=== PATIENT | male | born 1935 | race Caucasian/White ===

== ENCOUNTER 2017-10-12 09:59 | Inpatient (IN) | payer OTHER, MEDICARE ==
[~2017-10-12] VITALS: Ht 165.1 cm; Wt 78.5 kg
[~2017-10-12 09:59] MED LIST: ALIGN4 M1 PO; AMOXICILLIN500 M2 PO; BACTRIM DS TAB1 EACH PO; CIPRO500 M1 PO; FINASTERIDE5 M1 PO; FLAGYL500 MG PO; FLOMAX0.4 M1 PO; FOLIC ACID1 M1 PO; LIPO-FLAVONOID1 EACH PO; LISINOPRIL5 M1 PO; MECLIZINE HCL25 MG PO; METHSCOPOLAMIN2.5 M1 PO; OMEPRAZOLE20 M3 PO; OMEPRAZOLE40 M1 PO; PRAVASTATIN SOD80 M2 PO; PREDNISONE10 M2 PO; TAMSULOSIN HCL0.4 M1 PO; TYLENOL EXTRA500 M2 PO; WARFARIN SODIUM5 M1 PO
[2017-10-12] MEDS ORDERED: SULFAMETHOXAZO1 EAC1 PO (11:09)
--- NOTE | 2017-10-12 11:34 | ED GENERAL ADULT ---
History of Present Illness General Chief Complaint: Skin Rash/ Abcess Stated Complaint: SKIN INFECTION ? ABCESS Source: patient, family Exam Limitations: no limitations Vital Signs & Intake/Output Vital Signs & Intake/Output Vital Signs Date Time Temp Pulse Resp B/P B/P Pulse O2 O2 Flow FiO2 Mean Ox Delivery Rate 10/12 1501 97.7 76 16 138/70 98 Room Air 10/12 1005 96.9 74 20 148/78 97 Room Air Allergies Coded Allergies: Penicillins (UNKNOWN PER PT A KID 11/10/15) vancomycin (RASH 11/10/15) guaifenesin (From ROBITUSSIN) (Mild, "AFFECT MY PROSTATE" 11/10/15) Reconcile Medications Acetaminophen (Tylenol Extra Strength) 500 MG TABLET 1 TAB PO PRN PAIN ( Reported) Bifidobacterium Infantis (Align) 4 MG (1 BILLION CELL) CAPSULE 1 CAP PO DAILY PRN GI (Reported) Bioflav,Lemon/Vit Bcomp,C (Lipo-Flavonoid Plus Caplet) 200 MG-100 MG TABLET 1 TAB PO DAILY SUPPLEMENT (Reported) Finasteride 5 MG TABLET 1 TAB PO DAILY PROSTATE (Reported) Folic Acid 1 MG TABLET 1 TAB PO DAILY SUPPLEMENT (Reported) Meclizine HCl 25 MG TABLET 1 TAB PO AD PRN VERTIGO (Reported) Omeprazole 40 MG CAPSULE.DR 1 CAP PO DAILY GI (Reported) Pravastatin Sodium 80 MG TABLET 1 TAB PO DAILY CHOLESTEROL (Reported) Prednisone 10 MG TABLET 1 TAB PO DAILY STEROID (Reported) Sulfamethoxazole/Trimethoprim (Sulfamethoxazole-Tmp Ds Tablet) 800 MG-160 MG TABLET 1 TAB PO BID ANTIBIOTIC, INFECTION (Reported) Tamsulosin HCl (Flomax) 0.4 MG CAP.ER.24H 1 CAP PO BID PROSTATE (Reported) Warfarin Sodium 5 MG TABLET 1 TAB PO DAILY BLOOD THINNER (Reported) Triage Note: PT STATES THAT HE HAS HAD CELLULITIS/ABCESS TO L SIDE ABD FOR THE PAST 4 DAYS , SAW PMD AND HAS BEEN ON ABT SINCE THURSDAY, AREA IS GETTING LARGER MORE PAINFUL. PT NOTED WITH REDNESS AND WARMTH AT THIS TIME Triage Nurses Notes Reviewed? yes HPI: Patient is a 81-year-old male with past medical history of left inguinal hernia status post repair as well as left lower abdominal MRSA cellulitis in November 2015 which was treated with IV antibiotics, who presents today with erythema in that location. His primary physician placed him on Bactrim one week ago but the symptoms have worsened despite this. Upon my initial encounter today the patient is generally nontoxic and afebrile. He denies other concerns at this time. Past History Travel History Traveled to [place] past 21 day No Medical History Any Pertinent Medical History? 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 , Age 70; Cause: Myocardial infarction. FATHER, , Age 94; Cause: OBS (organic brain syndrome). Hx Contributory? No Review of Systems Review of Systems Constitutional: Reports: see HPI. Denies: chills, diaphoresis, fever, malaise, weakness. EENTM: Reports: no symptoms. Respiratory: Reports: no symptoms. Cardiovascular: Reports: no symptoms. GI: Reports: no symptoms. Genitourinary: Reports: no symptoms. Musculoskeletal: Reports: no symptoms. Skin: Reports: erythema, lesions, rash. Neurological/Psychological: Reports: no symptoms. Hematologic/Endocrine: Reports: no symptoms. Immunologic/Allergic: Reports: no symptoms. All Other Systems: Reviewed and Negative Physical Exam Physical Exam General Appearance: well developed/nourished, no apparent distress, alert, awake Comments: HEENT: Inspection of the head reveals a normocephalic cranium with no signs of trauma. Ophtho: Extraocular muscles are intact. The sclera are noninjected, and there is no obvious discharge. Neck: No signs of trauma or asymmetry to the neck. Respiratory: The patient exhibits no signs of labored breathing. Cardiac: Non-tachycardic. GI: No gross abdominal distention. : Deferred Neuro: The patient is oriented to person, place, time, and situation, with no obvious focal motor deficits. Cranial nerves II through XII are intact, and gait is normal. Behavioral: Calm and cooperative Dermatologic: Focused examination of the skin of the abdomen reveals erythema and induration in the left lower quadrant, not over aspect triangle or any inguinal canal. The area of induration is approximately 20 cm x 4 cm, and is mobile in the soft tissue, seemingly not adhered to the abdominal wall whatsoever. There is no head and no purulent drainage at present. Core Measures ACS in differential dx? No CVA/TIA Diagnosis: No Sepsis Present: No Sepsis Focused Exam Completed? No Progress Differential Diagnoses I considered the following diagnoses in my evaluation of the patient: Plan of Care: Orders Procedure Date/time Status Heart Healthy Diet 10/12 D Active LACTIC ACID 10/12 1515 Active Patient Data 10/12 1345 Active BLOOD CULTURE 10/12 1341 Active PROTHROMBIN TIME 10/12 1341 Complete ED Holding Orders 10/12 1334 Active Admit to inpatient 10/12 1334 Active Code Status 10/12 1334 Active Add-on Test (ER Only) 10/12 1330 Active LACTIC ACID 10/12 1215 Complete Intake & Output 10/12 1206 Active BLOOD CULTURE 10/12 1102 Active COMPREHENSIVE METABOLIC PANEL 10/12 1102 Complete CBC WITHOUT DIFFERENTIAL 10/12 1102 Complete Laboratory Tests 10/12/17 1401: PT 53.9 *H, INR 4.87 *H 10/12/17 1226: Lactic Acid 0.6 L, CBC w Diff MAN DIFF ORDERED, RBC 3.86 L, MCV 77.7 L, MCH 25.1 L, MCHC 32.3 L, RDW 19.6 H, MPV 8.9, Gran % 43.7, Lymphocytes % 52.3 H, Monocytes % 3.3, Eosinophils % 0.3, Basophils % 0.4, Absolute Granulocytes 9.7 H, Absolute Lymphocytes 11.6 H, Absolute Monocytes 0.7 H, Absolute Eosinophils 0.1, Absolute Basophils 0.1, Platelet Estimate VERIFIED BY SMEAR, Polychromasia 1+, Hypochromic-Microcytic 1+, Poikilocytosis 1+, Anisocytosis 1+, Microcytic Cells 1+, Ovalocytes 1+, Manteca Cells 1+ 10/12/17 1136: Anion Gap 11, Estimated GFR 58 L, BUN/Creatinine Ratio 19.2, Glucose 89, Calcium 9.0, Total Bilirubin 0.4, AST 27, ALT 16 L, Alkaline Phosphatase 84, Total Protein 5.7 L, Albumin 3.3 L, Globulin 2.4, Albumin/Globulin Ratio 1.4 Microbiology 10/12 1401 BLOOD: Blood Culture - RECD 10/12 1133 BLOOD: Blood Culture - RECD Initial ED EKG: none Comments: Patient presented today for failure of outpatient treatment of left lower abdominal suspected cellulitis despite a Bactrim course for the past week ordered by Dr. Freeman. The induration and size of the lesion had worsened. I obtained an ultrasound which showed fluid collections as a line below. I discussed this with interventional radiology who did not feel that the 1.2 cm largest fluid collection was amenable to aspiration. I also discussed with infectious disease and they recommended hospitalization for IV antibiotics. The patient's vancomycin allergy according to both he and his was significant, including immediate and profound edema of the face and potentially airway. This is to be considered a true anaphylactic allergy at present. Therefore, ID recommended clindamycin. Hospitalized for further treatment. Of note, leukocytosis of 22,000 is within normal limits for the patient given his history of CLL. Departure Departure Time of Disposition: 1336 Disposition: STILL A PATIENT Condition: Stable Clinical Impression Primary Impression: Cellulitis and abscess of trunk Referrals: Chin Freeman MD (PCP/Family) Departure Forms: Customer Survey General Discharge Information Admission Note Spoke With: Chin Freeman MD Documentation of Exam: Documentation of any treatments & extenuating circumstances including Concerns Regarding Discharge (functional status, medication knowledge or non-compliance, living conditions, etc.) that warrant an admission rather than observation: Patient presents today for worsening of his lower abdominal cellulitis. Ultrasound showed fluid collections. According to infectious disease this portends a worse prognosis and warrants hospitalization for IV antibiotics. Patient had prior anaphylaxis to vancomycin so infectious disease will be needed to evaluate the patient further. Admitted to the service of Dr. Freeman in hemolytically stable condition. Critical Care Note Critical Care Note Critical Care Time: non-applicable
--- NOTE | 2017-10-12 12:18 | ULTRASOUND REPORT ---
EXAMINATION: US ABDOMEN LIMITED CLINICAL INFORMATION: Pain. Presumptive diagnosis of abdominal wall abscess. Redness to left of abdomen at level of umbilicus. Patient states history of MRSA of the right periumbilical abdominal wall about 2 years ago. Current redness and pain started last Thursday and is persisting despite antibiotics for 5 days. No fever. COMPARISON: CT scan of the abdomen and pelvis dated 03/04/2017. TECHNIQUE: Real-time imaging of the left mid abdominal wall in region of patient's redness and tenderness. FINDINGS: Corresponding to the superficial erythema and induration, there is diffuse skin thickening in the left lateral abdominal wall at the level of the umbilicus with the skin thickening measuring up to approximately 0.5 cm in thickness. There is prominent underlying soft tissue edema and inflammatory change seen extending throughout the thickness of the subcutaneous tissues, abutting the anterior abdominal wall musculature, but not extending beyond the musculature. Findings are consistent with cutaneous and deep cutaneous cellulitis and phlegmonous changes. There is a small approximately 1.2 x 1.1 x 1.1 cm area of more focal complex fluid collection seen in the deeper subcutaneous tissues, suspicious for an evolving abscess. With color Doppler imaging, no significant hyperemia is seen in the involved area. IMPRESSION: Extensive cutaneous and deep subcutaneous soft tissue edema and inflammation is seen in the left mid abdomen at the level of the umbilicus, consistent with cutaneous cellulitis and subcutaneous panniculitis. A small 1.2 cm evolving abscess collection is suspected within the deep subcutaneous tissues.
[2017-10-12 12:43] LABS: ABSOLUTE BASOPHIL COUNT 0.1 /CUMM (0.0-0.2); ABSOLUTE EOSINOPHIL COUNT 0.1 /CUMM (0.0-0.7); ABSOLUTE GRANULOCYTE CT 9.7 /CUMM (1.4-6.5); ABSOLUTE LYMPH COUNT 11.6 /CUMM (1.2-3.4); ABSOLUTE MONOCYTE COUNT 0.7 /CUMM (0.10-0.60); BASOPHIL % 0.4 % (0.0-2.0); EOSINOPHIL % 0.3 % (0-5); MEAN CORPUSCULAR HGB 25.1 PG (27.0-31.0); MEAN CORPUSCULAR HGB CONC 32.3 G/DL (33.0-37.0); MEAN CORPUSCULAR VOLUME 77.7 FL (80.0-94.0); MEAN PLATELET VOLUME 8.9 FL (7.4-10.4); PLATELET COUNT 238 /CUMM (130-400); RBC DISTRIBUTION WIDTH 19.6 % (11.5-14.5); RED BLOOD CELL CT 3.86 /CUMM (4.70-6.10); WHITE BLOOD CELL COUNT 22.2 /CUMM (4.8-10.8)
[2017-10-12 12:57] LABS: GRANULOCYTE % 43.7 % (42.2-75.2)
--- NOTE | 2017-10-12 14:01 | History & Physical ---
Jacinta BAUGHClary 10/12/17 1401: General Information and [facility] MD Statement: I have seen and personally examined BOO STEVENS and documented this H&P. The patient is a 81 year old M who presented with a patient stated chief complaint of abdominal "rash". Source of Information: patient, family Exam Limitations: no limitations History of Present Illness: This is a 81-year-old male with a past medical history significant for CLL on chronic prednisone therapy 10 mg daily, obstructive sleep apnea on BiPAP, aortic mechanical valve on Coumadin, endocarditis in 1991, lung cancer 2010 status post resection of the right lower lobe, previous incidental lacunar infarct of unspecified time, previous MRSA infection with subsequent vancomycin reaction that presents to us with left-sided abdominal "rash". The patient states that it began as a small 2 cm indurated region 5 days ago and has since enlarged. The patient denies any inciting injury or insect/animal bite, open wounds. He saw his primary care physician Dr. Freeman who put him on Bactrim but the lesion continued to grow. The lesion is now fluctuant with a large erythematous area and some indication of previous drainage. The patient denies any itchiness but states that it was a bit "flaky" the other day. He denies any nausea, vomiting, fever, chills, chest pain, shortness of breath. He admits to some diarrhea a few days ago after he started the Bactrim. He states that he's taken Tylenol for the pain and it's helped some but the pain is worse on stretching. For his previous abdominal MRSA infection, he received vancomycin and subsequently had a reaction that involved swelling and redness of his face. Patient denies any chronic or uncontrolled infections as a child. The patient previously had cellulitis of the abdomen in November 2015 requiring IV antibiotics. He had hospitalizations in February 2017 and March 2017 for GI obstruction secondary to hernia with subsequent hernia surgery in April [address] Bustamante. Surgery has been deferred because the patient apparently had a "face infection" with purulent drainage from his nose and mouth. The patient denies any change in vision or pain with eye movement. He reportedly received 2 weeks of antibiotics because the infection did not resolve after 1 week. The patient lives at home and walks unassisted. He is smoked about 3-4 cigarettes for short time 50 years ago. He denies any alcohol or drugs. Allergies/Medications Home Med list Acetaminophen (Tylenol Extra Strength) 500 MG TABLET 1 TAB PO PRN PAIN ( Reported) Bifidobacterium Infantis (Align) 4 MG (1 BILLION CELL) CAPSULE 1 CAP PO DAILY PRN GI (Reported) Bioflav,Lemon/Vit Bcomp,C (Lipo-Flavonoid Plus Caplet) 200 MG-100 MG TABLET 1 TAB PO DAILY SUPPLEMENT (Reported) Finasteride 5 MG TABLET 1 TAB PO DAILY PROSTATE (Reported) Folic Acid 1 MG TABLET 1 TAB PO DAILY SUPPLEMENT (Reported) Meclizine HCl 25 MG TABLET 1 TAB PO AD PRN VERTIGO (Reported) Omeprazole 40 MG CAPSULE.DR 1 CAP PO DAILY GI (Reported) Pravastatin Sodium 80 MG TABLET 1 TAB PO DAILY CHOLESTEROL (Reported) Prednisone 10 MG TABLET 1 TAB PO DAILY STEROID (Reported) Sulfamethoxazole/Trimethoprim (Sulfamethoxazole-Tmp Ds Tablet) 800 MG-160 MG TABLET 1 TAB PO BID ANTIBIOTIC, INFECTION (Reported) Tamsulosin HCl (Flomax) 0.4 MG CAP.ER.24H 1 CAP PO BID PROSTATE (Reported) Warfarin Sodium 5 MG TABLET 1 TAB PO DAILY BLOOD THINNER (Reported) Past History Travel History Traveled to [place] past 21 day No Medical History Neurological: 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 EENT: NONE Cardiovascular: hyperlipidemia, ENDOCARDITIS Respiratory: obstructive sleep apnea Gastrointestinal: GERD, irritable bowel syndrome, pancreatitis (gallstone- induced) Hepatic: cholecystitis (post CCKY) Renal: benign prost hyperplasia, PROSTATITIS- denied recent abx Musculoskeletal: osteoarthritis, HERNIATED DISCS Psychiatric: NONE Endocrine: hyperthyroidism Blood Disorders: anemia, *CLL Cancer(s): lung cancer (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 , Age 70; Cause: Myocardial infarction. FATHER, , Age 94; Cause: OBS (organic brain syndrome). Psychosocial History Who Do You Live With? spouse (Nohemy) Services at Home: None Primary Language: Hungarian ETOH Use: denies use Illicit Drug Use: denies illicit drug use Living Will? no Power of Plastics Heat Welder/HCP? no Functional Ability ADLs Independent: dressing, eating, toileting, bathing. Ambulation: independent IADLs Independent: shopping, housework, finances, food prep, telephone, transportation , medication admin. Review of Systems Review of Systems Constitutional: Reports: no symptoms. EENTM: Reports: no symptoms. Cardiovascular: Reports: no symptoms. Respiratory: Reports: no symptoms. GI: Reports: no symptoms. Genitourinary: Reports: no symptoms. Musculoskeletal: Reports: no symptoms. Skin: Reports: erythema, lesions. Neurological/Psychological: Reports: no symptoms. Hematologic/Endocrine: Reports: no symptoms. Exam & Diagnostic Data Last 24 Hrs of Vital Signs/I&O Vital Signs Date Time Temp Pulse Resp B/P B/P Pulse O2 O2 Flow FiO2 Mean Ox Delivery Rate 10/12 1501 97.7 76 16 138/70 98 Room Air 10/12 1005 96.9 74 20 148/78 97 Room Air Intake & Output 10/12 1600 10/12 0800 10/12 0000 Intake Total Output Total Balance Patient 169 lb Weight Physical Exam General Appearance Alert, Oriented X3, Cooperative, No Acute Distress Skin No Rashes, patient has lower left sided wound at ankle that is covered by bandage status post wound VAC removal.surrounding erythema and edema. Skin Temp/Moisture Exam: Warm/Dry Sepsis Skin Exam (color): Normal for Ethnicity HEENT Atraumatic, EOMI, Mucous Membr. moist/pink Cardiovascular Regular Rate, Normal S1, Normal S2, No Murmurs Lungs Clear to Auscultation, Normal Air Movement Abdomen Normal Bowel Sounds, Soft, No Tenderness Neurological Normal Speech, patient has positive sensation and movement in both lower extremities Extremities No Clubbing, No Cyanosis, No Edema, Normal Pulses Vascular Normal Pulses, Pulses Symmetrical Sepsis Peripheral Pulse Location: Dorsalis Pedis Sepsis Peripheral Pulse Exam: Normal Body Front and Back (Adult) 1) Assessment/Plan Assessment: This is a 81-year-old male with a past medical history significant for CLL on chronic prednisone therapy 10 mg daily, obstructive sleep apnea on BiPAP, aortic mechanical valve on Coumadin, endocarditis in 1991, lung cancer 2009 status post resection of the right lower lobe, previous incidental lacunar infarct of unspecified time, previous MRSA infection with subsequent vancomycin reaction that presents to us with left-sided abdominal "rash". In the ED, vitals are stable, wbcs 22.2 at baseline for his CLL, Cr 1.2 baseline , GFR 58, LA normal. Physical exam showed an indurate, fluctuant, erythematous lesion on his left abdomen. Ab ultrasound showed cutaeous cellulitis and subcutaneous panniculitis with a 1.2 cm evolving abscess suspected within deep subcutaneous tissues. Secondary to his vancomycin "reaction" and his previous history of MRSA cellulitis, he was given a dose of clindamycin in the ED. He was also given fluids and pain medications. Plan -ID consult - we will stop clindamycin as patient has symptoms that appear to be more red man's syndrome than vancomycin allergy. As such, we will give vancomycin but at a slower rate as red man's syndrome is infusion rate dependent. -Follow blood cultures x2 -IR will drain the abscess by US guidance. However, patient's INR found to be 4.5. We will need INR to fall to around 2.5 before the abscess can be drained, as per suggestion by Dr. Bustamante. -Surgical consult with Dr. Bustamante as we have some concern that this infection is overlying his mesh that he had place in April for inguinal hernia. -Cardio consult with his food supervisor Dr. Brower to speak on safety of drainage of abscess with such a high INR. -Continue home medications. Patient is full code Regular diet DVT prophylaxis with ALPs only as we want to correct his INR. As Ranked By This Provider Problem List: 1. Colitis 2. Cellulitis and abscess of trunk Core Measures/Misc (01/25) Acute Coronary Syndrome ACS Diagnosis: No Congestive Heart Failure Congestive Heart Failure Diagnosis No Cerebrovascular Accident CVA/TIA Diagnosis: No VTE (View Protocol) VTE Risk Factors Acute Medical Illness No Mechanical VTE Prophylaxis d/t N/A MechProphylax Ordered No VTE Pharm Prophylaxis d/t Supratherapeutic INR Sepsis (View protocol) Sepsis Present: No If YES complete Sepsis Event Note If YES complete Sepsis Event Note Elmer Mane MD 10/12/17 1412: General Information and HPI Allergies/Medications Allergies: Coded Allergies: Penicillins (UNKNOWN PER PT A KID 11/10/15) guaifenesin (From ROBITUSSIN) (Mild, "AFFECT MY PROSTATE" 11/10/15) Core Measures/Misc (01/25) Sepsis (View protocol) If YES complete Sepsis Event Note If YES complete Sepsis Event Note Resident Review Statement Other Findings: History of Present Illness 81 year old man with past medical history of [place] Aortic valve (1992) on Coumadin, CLL on prednisone, Lung cancer s/p right lower lobectomy, MRSA abdominal cellulitis, Obstructive sleep apnea on nocturnal BiPAP, and hernia repair (04/2017) sent in by his PCP for cellulitis. Patient reports developed redness, pain and swelling last week and was seen by his PCP whom prescribed Bactrim. He took four days of antibiotics with no improvement, but admits to developing diarrhea. For persistence of his symptoms he contacted his PCP who directed him to the [facility]. Presently patient states that he feels well and has no complaints. He denies any trauma to the area but does admit at times it does drain a clear/thick liquid. He admits to having had MRSA cellulitis of the right side of his abdomen in the past for which he was given Vancomycin and developed an "allergic reaction" causing "redness" of his face. Review of Systems He otherwise denies any headache, fever, chills, blurred / double vision, chest pain, shortness of breath, nausea, vomiting, constipation. Objective Vital Signs: Temp 97.7, HR 74-76, RR 16-20, SBP 138-148, O2 97-98% on room air Physical Exam -General: well developed, well nourished elderly man in no acute distress -HEENT: NCAT, PERRL, EOMI, anicteric sclerea -Neck: Supple, No JVD, trachea midline -Cardio: Audible Metallic [place] aortic valve -Pulm: Clear to auscultation bilaterally -Abdomen: Soft, non-distended, large elliptical areas of erythema / induration with tenderness, drainage of clear/think materal and fluctuance, bowel sounds intact -Neuro: Awake and alert, CN II-XII grossly intact -Extremities: normal pulses, no edema Labs / Imaging / Studies -CBC: WBC 22.2, Hgb 9.7, Hct 30.0, 238 -BMP: Na 141, K 4.0, Cl 105, CO2 25, BUN 23, Creatinine 1.2, Anion Gap 11, Glucose 89 -LFT: WNL -Misc: INR 7.87, Lactic 0.6 -Abdominal ultrasound: * Abdominal ultrasound reveals diffuse skin thickening in the left lateral abdominal wall, measuring 0.5 cm in thickness, with prominent underlying soft tissue edema and inflammatory changes extending through the thickness of the subcutaneous tissues, abutting the anterior abdominal wall musculature; a small 1.2 x 1.1 x 1.1 cm area of more focal complex fluid collection is seen in the deeper subcutaneous tissues, suspicious for an evolving abscess. Assessment 81 year old man with multiple medical problems significant for CLL, Lung Cancer, recent left abdominal hernia repair (04/2017), right lower extremity cellulitis, and Mechanical aortic valve on Coumadin sent in by PCP for evalution of left lower abdominal swelling and redness. Patient was prescribed Bactrim which is took for 4 days prior to admission. Patient reports mild left lower abdominal pain with occasional drainage. He has diarrhea, but otherwise denies any fever, chills, shortness of breath. Vitals are within normal limits. Physical exam reveals a large erythematous indurated area with fluctuance and scant clear drainage of the left lower abdomen. Labs are significant for leukocytosis; lactic acid negative. Us demonstrated extensive subcutaneous edema with panniculitis. IR was contacted by the ED provider for evaluation of possible drainage of the 1.2cm abscess but was determined to be too small. Clinicially patient has a left lower quadrant purulent cellulitis concerning for MRSA. Patient clinically has failed outpatient treatment for his cellulitis. Patient will require I&D and reversal of his coumaind. Consults with ID, General Surgery, and Cardiology are to be placed. Problem List -Left lower quadrant purulent abdominal wall cellulitis -Supratherapeutic INR, likely due to Bactrim -CLL, on prednisonse -Lung Cancer s/p right lower lobectomy -Left "" hernia s/p repair (04/24/17) -History of right lower quadrant MRSA cellulitis -[place] Mechanical valve, on Coumadin -History of endocarditis -History of lacunar infaract -NAEEM, on Nocturnal BiPAP -GERD -Irritable Bowel Syndrome -Benign prostatic hypertrophy Plan -Admit to general medicine -Contact precautions -Nocturnal BiPAP -Vancomycin 1 g IV Daily -Continue home meds: finasteride, folic acid, omeprazole, pravastatin, prednisone -Hold coumadin, restart after I&D -ID consult for antibiotic recommendations -General surgery consult -Cardiology consult for evaluation fo INR / Mechanical heart valve -Follow up blood cultures -Daily INR -Consider echocardiogram if bacteremia if blood cultures positive -Pain control with acetaminophen -Heart Healthy Diet, NPO overnight for asbcess aspiration; IR vs Bedside -DVT PPx with subcutaneous heparin -FULL CODE
[2017-10-12 14:26] LABS: PT 53.9 SEC (9.4-12.5)
--- NOTE | 2017-10-12 15:39 | Cons- Infect Disease ---
General Information and HPI Consulting Request Date of Consult: 10/12/17 Requested By: Chin Freeman MD Reason for Consult: Left lower quadrant cellulitis Source of Information: patient, family, old records History of Present Illness: This is a 81-year-old man with a history of CLL for 10 years, maintained on prednisone 10 mg daily, adenocarcinoma of the lung, status post wedge resection of the right lower lobe 8 years prior to admission, status post aortic valve replacement 20 years prior to admission, maintained on Coumadin, with a history of subcutaneous abscesses involving the right lower quadrant 2 years prior to admission (secondary to MRSA) and the left face 6 months prior to admission, begun on Bactrim 5 days prior to admission for a one day history of swelling in the left lower quadrant, admitted today with increasing erythema and induration despite Bactrim, with discomfort on palpation, but with no fevers or chills. On admission he was afebrile. Laboratory data revealed a white blood cell count of 22,000, BUN/creatinine 23 and 1.2, with normal liver enzymes, INR 4.87. Ultrasound of the abdomen revealed extensive cutaneous and deep subcutaneous soft tissue edema and inflammation in the left mid abdomen, with a small 1.2 cm evolving abscess collection within the deep subcutaneous tissues. Allergies/Medications Allergies: Coded Allergies: Penicillins (UNKNOWN PER PT A KID 11/10/15) vancomycin (RASH 11/10/15) guaifenesin (From ROBITUSSIN) (Mild, "AFFECT MY PROSTATE" 11/10/15) Home Med List: Acetaminophen (Tylenol Extra Strength) 500 MG TABLET 1 TAB PO PRN PAIN ( Reported) Bifidobacterium Infantis (Align) 4 MG (1 BILLION CELL) CAPSULE 1 CAP PO DAILY PRN GI (Reported) Bioflav,Lemon/Vit Bcomp,C (Lipo-Flavonoid Plus Caplet) 200 MG-100 MG TABLET 1 TAB PO DAILY SUPPLEMENT (Reported) Finasteride 5 MG TABLET 1 TAB PO DAILY PROSTATE (Reported) Folic Acid 1 MG TABLET 1 TAB PO DAILY SUPPLEMENT (Reported) Meclizine HCl 25 MG TABLET 1 TAB PO AD PRN VERTIGO (Reported) Omeprazole 40 MG CAPSULE.DR 1 CAP PO DAILY GI (Reported) Pravastatin Sodium 80 MG TABLET 1 TAB PO DAILY CHOLESTEROL (Reported) Prednisone 10 MG TABLET 1 TAB PO DAILY STEROID (Reported) Sulfamethoxazole/Trimethoprim (Sulfamethoxazole-Tmp Ds Tablet) 800 MG-160 MG TABLET 1 TAB PO BID ANTIBIOTIC, INFECTION (Reported) Tamsulosin HCl (Flomax) 0.4 MG CAP.ER.24H 1 CAP PO BID PROSTATE (Reported) Warfarin Sodium 5 MG TABLET 1 TAB PO DAILY BLOOD THINNER (Reported) Past History Travel History Traveled to [place] past 21 day No Medical History Neurological: 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 EENT: NONE Cardiovascular: hyperlipidemia, ENDOCARDITIS Respiratory: obstructive sleep apnea Gastrointestinal: GERD, irritable bowel syndrome, pancreatitis (gallstone- induced) Hepatic: cholecystitis Renal: benign prost hyperplasia, PROSTATITIS- denied recent abx Musculoskeletal: osteoarthritis, HERNIATED DISCS Psychiatric: NONE Endocrine: hyperthyroidism Blood Disorders: anemia, *CLL Cancer(s): lung cancer (RLL adenoCa 10/2019), 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 , Age 70; Cause: Myocardial infarction. FATHER, , Age 94; Cause: OBS (organic brain syndrome). Psychosocial History Who Do You Live With? spouse (Nohemy) Services at Home: None Primary Language: Kyrgyz ETOH Use: denies use Illicit Drug Use: denies illicit drug use Living Will? no Power of Protein Purification Scientist/HCP? no Functional Ability ADLs Independent: dressing, eating, toileting, bathing. Ambulation: independent IADLs Independent: shopping, housework, finances, food prep, telephone, transportation , medication admin. Review of Systems Review of Systems All Other Systems: Reviewed and Negative Exam & Diagnostic Data Last 24 Hrs of Vital Signs/I&O Vital Signs Date Time Temp Pulse Resp B/P B/P Pulse O2 O2 Flow FiO2 Mean Ox Delivery Rate 10/12 1501 97.7 76 16 138/70 98 Room Air 10/12 1005 96.9 74 20 148/78 97 Room Air Intake & Output 10/12 1600 / 0800 10/12 0000 Intake Total Output Total Balance Patient 169 lb Weight Physical Exam Other Physical Findings: He is awake and alert in no acute distress. He is afebrile on steroids. Skin no rash. HEENT exam is negative. Neck is supple with no adenopathy. Lungs are clear. Heart regular rhythm with no murmur. Abdomen reveals an indurated, mildly tender, area of swelling over the left lower quadrant, measuring 8 x 10 cm, with no drainage, with erythema extending towards the right side, positive bowel sounds. Extremities no cyanosis, clubbing or edema. Neuro is without focality Last 24 Hours of Lab Results: Laboratory Tests 10/12 10/12 10/12 1515 1401 1226 Chemistry Lactic Acid (0.7 - 2.1 mmol/L) Cancelled 0.6 L Coagulation PT (9.4 - 12.5 SEC) 53.9 *H INR (0.90 - 1.17) 4.87 *H Hematology CBC w Diff MAN DIFF ORDERED WBC (4.8 - 10.8 /CUMM) 22.2 H RBC (4.70 - 6.10 /CUMM) 3.86 L Hgb (14.0 - 18.0 G/DL) 9.7 L Hct (42 - 52 %) 30.0 L MCV (80.0 - 94.0 FL) 77.7 L MCH (27.0 - 31.0 PG) 25.1 L MCHC (33.0 - 37.0 G/DL) 32.3 L RDW (11.5 - 14.5 %) 19.6 H Plt Count (130 - 400 /CUMM) 238 MPV (7.4 - 10.4 FL) 8.9 Gran % (42.2 - 75.2 %) 43.7 Lymphocytes % (20.5 - 51.1 %) 52.3 H Monocytes % (1.7 - 9.3 %) 3.3 Eosinophils % (0 - 5 %) 0.3 Basophils % (0.0 - 2.0 %) 0.4 Absolute Granulocytes (1.4 - 6.5 /CUMM) 9.7 H Absolute Lymphocytes (1.2 - 3.4 /CUMM) 11.6 H Absolute Monocytes (0.10 - 0.60 /CUMM) 0.7 H Absolute Eosinophils (0.0 - 0.7 /CUMM) 0.1 Absolute Basophils (0.0 - 0.2 /CUMM) 0.1 Platelet Estimate (ADEQUATE) VERIFIED BY SMEAR Polychromasia 1+ Hypochromic-Microcytic 1+ Poikilocytosis 1+ Anisocytosis 1+ Microcytic Cells 1+ Ovalocytes 1+ Magdy Cells 1+ 10/12 1136 Chemistry Sodium (137 - 145 mmol/L) 141 Potassium (3.5 - 5.1 mmol/L) 4.0 Chloride (98 - 107 mmol/L) 105 Carbon Dioxide (22 - 30 mmol/L) 25 Anion Gap (5 - 16) 11 BUN (9 - 20 mg/dL) 23 H Creatinine (0.7 - 1.2 mg/dL) 1.2 Estimated GFR (>60 ml/min) 58 L BUN/Creatinine Ratio (7 - 25 %) 19.2 Glucose (65 - 99 mg/dL) 89 Calcium (8.4 - 10.2 mg/dL) 9.0 Total Bilirubin (0.2 - 1.3 mg/dL) 0.4 AST (17 - 59 U/L) 27 ALT (21 - 72 U/L) 16 L Alkaline Phosphatase (< 127 U/L) 84 Total Protein (6.3 - 8.2 g/dL) 5.7 L Albumin (3.5 - 5.0 g/dL) 3.3 L Globulin (1.9 - 4.2 gm/dL) 2.4 Albumin/Globulin Ratio (1.1 - 2.2 %) 1.4 Last 24 Hours of Pavel Results: Blood cultures 2 pending Diagnostic Data Recent Imaging Findings: Abdominal ultrasound reveals diffuse skin thickening in the left lateral abdominal wall, measuring 0.5 cm in thickness, with prominent underlying soft tissue edema and inflammatory changes extending through the thickness of the subcutaneous tissues, abutting the anterior abdominal wall musculature; a small 1.2 x 1.1 x 1.1 cm area of more focal complex fluid collection is seen in the deeper subcutaneous tissues, suspicious for an evolving abscess. Assessment/Plan Assessment/Plan Impression: This is a 81-year-old man with a history of CLL, maintained on prednisone, status post aortic valve replacement 20 years prior to admission, maintained on Coumadin, with a history of subcutaneous abscesses involving the right lower quadrant (secondary to MRSA) and the left face, begun on Bactrim 5 days prior to admission for a one day history of swelling in the left lower quadrant, admitted today with increasing erythema and induration of the left lower quadrant abdominal wall, found to be afebrile with a leukocytosis (which is chronic) with an ultrasound revealing extensive cutaneous and deep subcutaneous soft tissue edema and inflammation in the left mid abdomen, with a small 1.2 cm abscess. His clinical picture is worrisome for an abscess in the left lower abdominal wall and, though the ultrasound only suggests a small collection, suspect that he will prove to have a more extensive process. The depth of the process suggests that he may require a formal I&D and surgical evaluation would be helpful but, if/when his INR can be lowered, aspiration/drainage by IR can be attempted, at least to identify a pathogen. With his history of MRSA suspect that this will be the pathogen and he should be covered for this pending further evaluation. He reports an allergy to Vancomycin but, upon further questioning, it was manifest as a pruritic rash during the infusion, suggesting it represented "red man syndrome", which occurs with rapid infusion and is not considered an allergy. Suggestion: 1. Would pursue aspiration/drainage by IR once his INR has decreased to an acceptable level 2. Surgical evaluation 3. Begin Vancomycin 1 g IV every 24 hours pending above Consult Acknowledgment - Thank you for your consult request.
--- NOTE | 2017-10-12 17:25 | Cons- General Surgery ---
General Information and HPI Consulting Request Date of Consult: 10/12/17 Requested By: Chin Freeman MD History of Present Illness: Patient iwth prior history of MRSA skin infections presents with a few days duration of worsening erythema, swelling and tenderness left abdominal wall. no f/c/s. Stated Bactrim two days ago without improvement. Allergies/Medications Allergies: Coded Allergies: Penicillins (UNKNOWN PER PT A KID 11/10/15) guaifenesin (From ROBITUSSIN) (Mild, "AFFECT MY PROSTATE" 11/10/15) Home Med List: Acetaminophen (Tylenol Extra Strength) 500 MG TABLET 1 TAB PO PRN PAIN ( Reported) Bifidobacterium Infantis (Align) 4 MG (1 BILLION CELL) CAPSULE 1 CAP PO DAILY PRN GI (Reported) Bioflav,Lemon/Vit Bcomp,C (Lipo-Flavonoid Plus Caplet) 200 MG-100 MG TABLET 1 TAB PO DAILY SUPPLEMENT (Reported) Finasteride 5 MG TABLET 1 TAB PO DAILY PROSTATE (Reported) Folic Acid 1 MG TABLET 1 TAB PO DAILY SUPPLEMENT (Reported) Meclizine HCl 25 MG TABLET 1 TAB PO AD PRN VERTIGO (Reported) Omeprazole 40 MG CAPSULE.DR 1 CAP PO DAILY GI (Reported) Pravastatin Sodium 80 MG TABLET 1 TAB PO DAILY CHOLESTEROL (Reported) Prednisone 10 MG TABLET 1 TAB PO DAILY STEROID (Reported) Sulfamethoxazole/Trimethoprim (Sulfamethoxazole-Tmp Ds Tablet) 800 MG-160 MG TABLET 1 TAB PO BID ANTIBIOTIC, INFECTION (Reported) Tamsulosin HCl (Flomax) 0.4 MG CAP.ER.24H 1 CAP PO BID PROSTATE (Reported) Warfarin Sodium 5 MG TABLET 1 TAB PO DAILY BLOOD THINNER (Reported) Current Medications: Current Medications Sig/Kobe Start time Last Medication Dose Route Stop Time Status Admin Acetaminophen 650 MG Q6P PRN 10/12 1545 AC PO Clindamycin 600 MG ONCE ONE 10/12 1345 DC Dextrose/Water 50 ML IV 10/12 1414 Finasteride 5 MG DAILY 10/12 1646 UNVr PO Folic Acid 1 MG DAILY 10/12 1646 UNVr PO Omeprazole 40 MG DAILY AC 10/13 0700 UNVr PO Pravastatin Sodium 20 MG 1700 10/12 1700 UNVr PO Prednisone 10 MG DAILY 10/12 1647 UNVr PO Tamsulosin HCl 0.4 MG BID 10/12 2100 UNVr PO Vancomycin HCl 1,000 MG DAILY 10/13 0900 DC Sodium Chloride 250 ML IV Vancomycin HCl 1,000 MG DAILY 10/12 1700 UNVr Sodium Chloride 250 ML IV Past History Medical History Neurological: 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 EENT: NONE Cardiovascular: hyperlipidemia, ENDOCARDITIS Respiratory: obstructive sleep apnea Gastrointestinal: GERD, irritable bowel syndrome, pancreatitis (gallstone- induced) Hepatic: cholecystitis Renal: benign prost hyperplasia, PROSTATITIS- denied recent abx Musculoskeletal: osteoarthritis, HERNIATED DISCS Psychiatric: NONE Endocrine: hyperthyroidism Blood Disorders: anemia, *CLL Cancer(s): 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 , Age 70; Cause: Myocardial infarction. FATHER, , Age 94; Cause: OBS (organic brain syndrome). Psychosocial History Who Do You Live With? spouse (Nohemy) Services at Home: None Primary Language: Panamanian ETOH Use: denies use Illicit Drug Use: denies illicit drug use Living Will? no Power of Tool Maker Apprentice/HCP? no Functional Ability ADLs Independent: dressing, eating, toileting, bathing. Ambulation: independent IADLs Independent: shopping, housework, finances, food prep, telephone, transportation , medication admin. Review of Systems Review of Systems: no f/c/s, no cp, downey Exam & Diagnostic Data Vital Signs and I&O Vital Signs Date Time Temp Pulse Resp B/P B/P Pulse O2 O2 Flow FiO2 Mean Ox Delivery Rate 10/12 1501 97.7 76 16 138/70 98 Room Air 10/12 1005 96.9 74 20 148/78 97 Room Air Intake & Output 10/12 1600 10/12 0800 10/12 0000 10/11 1600 10/11 0800 10/11 0000 Intake Total Output Total Balance Patient 169 lb Weight Physical Exam: gen; looks well, age. nad abd; soft tender with erythema left mid abdomen. induration wit micropustules throughout. entire area spans [id number]. no fluctuance. Last 24 Hours of Labs: Laboratory Tests 10/12 10/12 10/12 1515 1401 1226 Chemistry Lactic Acid (0.7 - 2.1 mmol/L) Cancelled 0.6 L Coagulation PT (9.4 - 12.5 SEC) 53.9 *H INR (0.90 - 1.17) 4.87 *H Hematology CBC w Diff MAN DIFF ORDERED WBC (4.8 - 10.8 /CUMM) 22.2 H RBC (4.70 - 6.10 /CUMM) 3.86 L Hgb (14.0 - 18.0 G/DL) 9.7 L Hct (42 - 52 %) 30.0 L MCV (80.0 - 94.0 FL) 77.7 L MCH (27.0 - 31.0 PG) 25.1 L MCHC (33.0 - 37.0 G/DL) 32.3 L RDW (11.5 - 14.5 %) 19.6 H Plt Count (130 - 400 /CUMM) 238 MPV (7.4 - 10.4 FL) 8.9 Gran % (42.2 - 75.2 %) 43.7 Lymphocytes % (20.5 - 51.1 %) 52.3 H Monocytes % (1.7 - 9.3 %) 3.3 Eosinophils % (0 - 5 %) 0.3 Basophils % (0.0 - 2.0 %) 0.4 Absolute Granulocytes (1.4 - 6.5 /CUMM) 9.7 H Absolute Lymphocytes (1.2 - 3.4 /CUMM) 11.6 H Absolute Monocytes (0.10 - 0.60 /CUMM) 0.7 H Absolute Eosinophils (0.0 - 0.7 /CUMM) 0.1 Absolute Basophils (0.0 - 0.2 /CUMM) 0.1 Platelet Estimate (ADEQUATE) VERIFIED BY SMEAR Polychromasia 1+ Hypochromic-Microcytic 1+ Poikilocytosis 1+ Anisocytosis 1+ Microcytic Cells 1+ Ovalocytes 1+ [place] Cells 1+ 10/12 1136 Chemistry Sodium (137 - 145 mmol/L) 141 Potassium (3.5 - 5.1 mmol/L) 4.0 Chloride (98 - 107 mmol/L) 105 Carbon Dioxide (22 - 30 mmol/L) 25 Anion Gap (5 - 16) 11 BUN (9 - 20 mg/dL) 23 H Creatinine (0.7 - 1.2 mg/dL) 1.2 Estimated GFR (>60 ml/min) 58 L BUN/Creatinine Ratio (7 - 25 %) 19.2 Glucose (65 - 99 mg/dL) 89 Calcium (8.4 - 10.2 mg/dL) 9.0 Total Bilirubin (0.2 - 1.3 mg/dL) 0.4 AST (17 - 59 U/L) 27 ALT (21 - 72 U/L) 16 L Alkaline Phosphatase (< 127 U/L) 84 Total Protein (6.3 - 8.2 g/dL) 5.7 L Albumin (3.5 - 5.0 g/dL) 3.3 L Globulin (1.9 - 4.2 gm/dL) 2.4 Albumin/Globulin Ratio (1.1 - 2.2 %) 1.4 Imaging Results: Ultrasound shows small collection. Assessment/Plan Assessment/Plan severe cellulitis, likely MRSA by history and appearance. Ultrasound shows small fluid collection. Will need incision and drainage. IV Vanco. would prefer INR tro be less than 2.5. Consult Acknowledgment - Thank you for your consult request.
--- NOTE | 2017-10-12 19:40 | Admission Certification ---
Admission Certification Certification Statement - As attending physician, I certify that at the time of - admission, based on clinical presentation, severity of - symptoms, need for further diagnostic testing and - therapeutic interventions, and risk of adverse outcomes - without in-hospital treatment, in my clinical assessment, - this patient requires an acute hospital stay for a minimum - of two nights or longer. I have also considered psychsocial - factors such as support system, advanced age, financial - issues, cognitive issues, and failed out-patient treatments, - past re-admission history, safety of patient, and lack of - compliance as applicable. Specific rationale supporting this admission is: Cellulitis of the abdominal wall probable abscess developing supratherapeutic INR, no response to by mouth antibiotic therapy
--- NOTE | 2017-10-12 19:43 | PN- Att Addend ---
Attending Addendum Attending Brief Note 81-year-old white male with many comorbidities and history of chronic lymphocytic leukemia eschew of previous MRSA infection was seen by myself in the office a few days ago warm and tender lower abdominal wall. One very small area of hardness had no fever. Was started on antibiotics sulfa over the days this did not get any better or redness fluctuated towards the left side looking sore and warm comes to the emergency room by his white count is elevated but he has history of CML. Patient was seen by infectious diseases and surgery for recommendations about antibiotics were given, the Coumadin will be on hold to lower little bit his INR, and then he would be able to have diagnostic I and D. Current Medications Sig/Kobe Start time Last Medication Dose Route Stop Time Status Admin Acetaminophen 650 MG Q6P PRN 10/12 1545 AC PO Clindamycin 600 MG ONCE ONE 10/12 1345 DC Dextrose/Water 50 ML IV 10/12 1414 Diphenhydramine HCl 0 .STK-MED ONE 10/12 1904 DC PO Diphenhydramine HCl 25 MG DAILY NEEDED PRN 10/12 1845 AC 10/12 PO 1900 Finasteride 5 MG DAILY 10/12 1646 AC 10/12 PO 1822 Folic Acid 1 MG DAILY 10/12 1646 AC 10/12 PO 1822 Hydroxyzine HCl 25 MG BID PRN 10/12 1845 AC PO Omeprazole 40 MG DAILY AC 10/13 0700 AC PO Pravastatin Sodium 20 MG 1700 10/12 1700 AC 10/12 PO 1822 Prednisone 10 MG DAILY 10/12 1647 AC 10/12 PO 1822 Tamsulosin HCl 0.4 MG BID 10/12 2100 AC PO Vancomycin HCl 1,000 MG DAILY 10/13 0900 DC Sodium Chloride 250 ML IV Vancomycin HCl 1,000 MG Q24H 10/12 1800 AC 10/12 Sodium Chloride 250 ML IV 1933 Laboratory Tests 10/12/17 1515: Lactic Acid Cancelled 10/12/17 1401: PT 53.9 *H, INR 4.87 *H 10/12/17 1226: Lactic Acid 0.6 L, CBC w Diff MAN DIFF ORDERED, RBC 3.86 L, MCV 77.7 L, MCH 25.1 L, MCHC 32.3 L, RDW 19.6 H, MPV 8.9, Gran % 43.7, Lymphocytes % 52.3 H, Monocytes % 3.3, Eosinophils % 0.3, Basophils % 0.4, Absolute Granulocytes 9.7 H, Absolute Lymphocytes 11.6 H, Absolute Monocytes 0.7 H, Absolute Eosinophils 0.1, Absolute Basophils 0.1, Platelet Estimate VERIFIED BY SMEAR, Polychromasia 1+, Hypochromic-Microcytic 1+, Poikilocytosis 1+, Anisocytosis 1+, Microcytic Cells 1+, Ovalocytes 1+, [place] Cells 1+ 10/12/17 1136: Anion Gap 11, Estimated GFR 58 L, BUN/Creatinine Ratio 19.2, Glucose 89, Calcium 9.0, Total Bilirubin 0.4, AST 27, ALT 16 L, Alkaline Phosphatase 84, Total Protein 5.7 L, Albumin 3.3 L, Globulin 2.4, Albumin/Globulin Ratio 1.4 Vital Signs Date Time Temp Pulse Resp B/P B/P Pulse O2 O2 Flow FiO2 Mean Ox Delivery Rate 10/12 1914 98.4 77 20 153/86 98 Room Air 10/12 1501 97.7 76 16 138/70 98 Room Air Intake & Output 10/12 1600 Intake Total Output Total Balance Patient 169 lb Weight
[2017-10-12 22:35] VITALS: BP 120/70
[2017-10-13 05:56] VITALS: BP 140/76
[2017-10-13 05:59] LABS: ABSOLUTE BASOPHIL COUNT 0.1 /CUMM (0.0-0.2); ABSOLUTE EOSINOPHIL COUNT 0 /CUMM (0.0-0.7); ABSOLUTE GRANULOCYTE CT 10.2 /CUMM (1.4-6.5); ABSOLUTE MONOCYTE COUNT 0.7 /CUMM (0.10-0.60); BASOPHIL % 0.2 % (0.0-2.0); EOSINOPHIL % 0.1 % (0-5); GRANULOCYTE % 44.2 % (42.2-75.2); HEMATOCRIT 29.7 % (42-52); MEAN CORPUSCULAR HGB 25.1 PG (27.0-31.0); MEAN CORPUSCULAR HGB CONC 32.3 G/DL (33.0-37.0); MEAN CORPUSCULAR VOLUME 77.5 FL (80.0-94.0); MEAN PLATELET VOLUME 10.1 FL (7.4-10.4); PLATELET COUNT 245 /CUMM (130-400); RBC DISTRIBUTION WIDTH 20.1 % (11.5-14.5); RED BLOOD CELL CT 3.83 /CUMM (4.70-6.10)
[2017-10-13 06:54] LABS: PT 51.2 SEC (9.4-12.5)
--- NOTE | 2017-10-13 08:33 | PN- Housestaff ---
Subjective Follow-up For: llq cellulitis Subjective: afebrile, complains of LLQ tenderness Review of Systems Constitutional: Reports: see HPI. Objective Last 24 Hrs of Vital Signs/I&O Vital Signs Date Time Temp Pulse Resp B/P B/P Pulse O2 O2 Flow FiO2 Mean Ox Delivery Rate 10/13 1348 98.6 90 20 100/62 97 Room Air 10/13 0556 99.6 69 20 140/76 98 Room Air / 0000 BIPAP 10/12 2235 98.1 75 20 120/70 96 / 2156 75 20 120/70 10/12 1914 98.4 77 20 153/86 98 Room Air 10/12 1501 97.7 76 16 138/70 98 Room Air Intake & Output 10/13 1600 10/13 0800 10/13 0000 Intake Total 0 490 Output Total 400 Balance -400 490 Intake, IV 250 Intake, Oral 0 240 Number 2 Bowel Movements Output, Urine 400 Patient 76.657 kg Weight Weight Reported by Patient Measurement Method Physical Exam General Appearance: Alert, Oriented X3, Cooperative, No Acute Distress Cardiovascular: Regular Rate, Normal S1, Normal S2, No Murmurs Lungs: Clear to Auscultation, Normal Air Movement Abdomen: left lower quadrant tenderness with cellulitis fluctuance and scant drainage Extremities: No Clubbing, No Cyanosis, No Edema, Normal Pulses Current Medications: Current Medications Sig/Kobe Start time Last Medication Dose Route Stop Time Status Admin Acetaminophen 650 MG Q6P PRN 10/12 1545 AC PO Diphenhydramine HCl 0 .STK-MED ONE 10/12 1904 DC PO Diphenhydramine HCl 25 MG DAILY NEEDED PRN 10/12 1845 AC 10/12 PO 1900 Finasteride 5 MG DAILY 10/12 1646 AC 10/13 PO 0919 Folic Acid 1 MG DAILY 10/12 1646 AC 10/13 PO 0919 Hydroxyzine HCl 25 MG BID PRN 10/12 1845 AC PO Omeprazole 40 MG DAILY AC 10/13 0700 AC 10/13 PO 0537 Patient Medication 1 ED ONE ONE 10/13 1000 DC Teaching ED 10/13 1001 Phytonadione 10 MG 1215 10/13 1215 DC 10/13 PO 10/13 1216 1347 Pravastatin Sodium 20 MG 1700 10/12 1700 AC 10/12 PO 1822 Prednisone 10 MG DAILY 10/12 1647 AC 10/13 PO 0919 Tamsulosin HCl 0.4 MG BID 10/12 2100 AC 10/13 PO 0919 Vancomycin HCl 1,000 MG DAILY 10/13 0900 DC Sodium Chloride 250 ML IV Vancomycin HCl 1,000 MG Q24H 10/12 1800 AC 10/12 Sodium Chloride 250 ML IV 1933 Last 24 Hrs of Lab/Pavel Results Last 24 Hrs of Labs/Mics: Laboratory Tests 10/13/17 0525: Anion Gap 9, Estimated GFR > 60, BUN/Creatinine Ratio 15.5, PT 51.2 *H, INR 4.63 *H, CBC w Diff MAN DIFF ORDERED, RBC 3.83 L, MCV 77.5 L, MCH 25.1 L, MCHC 32.3 L, RDW 20.1 H, MPV 10.1, Gran % 44.2, Lymphocytes % 52.3 H, Monocytes % 3.2, Eosinophils % 0.1, Basophils % 0.2, Absolute Granulocytes 10.2 H, Segmented Neutrophils 46, Band Neutrophils 2, Absolute Lymphocytes 12.0 H, Lymphocytes 51, Monocytes 1 L, Absolute Monocytes 0.7 H, Absolute Eosinophils 0, Absolute Basophils 0.1, Platelet Estimate ADEQUATE, Hypochromic-Microcytic 1+ , Poikilocytosis FEW, Anisocytosis 2+, Microcytic Cells 1+, Ovalocytes 1+, Magdy Cells FEW, Fld Total RBCs Counted 100 10/12/17 1515: Lactic Acid Cancelled Microbiology 10/13 1409 URINE ROUT: Urine Culture - ORD Assessment/Plan Assessment: 81 year old man with PMHx of CLL, lung cancer, recent left abdominal hernia repair (04/2017), right lower extremity cellulitis, and mechanical aortic valve on Coumadin was sent in by his PCP for evalution of left lower abdominal swelling, redness, with occasional drainage without fever. Patient was prescribed Bactrim which he took for 4 days prior to admission admitted for management of left lower quadrant cellulitis and abscess concerning for MRSA. Left lower quadrant purulent abdominal wall cellulitis/abscess: History of MRSA cellulitis Leukocytosis to 23,000 with 2 bands (on chronic steroids for CLL) Continue vancomycin 1g IV daily Outpatient antibiotic failure with bactrim 1.2cm abscess but was determined to be too small for IR drainage Plan for bedside I+D with general surgery and culture after INR <2.5 Blood cultures NGTD Check UA and culture Follow up infectious disease recommendations Ultrasound-Extensive cutaneous and deep subcutaneous soft tissue edema and inflammation is seen in the left mid abdomen at the level of the umbilicus, consistent with cutaneous cellulitis and subcutaneous panniculitis. A small 1.2 cm evolving abscess collection is suspected within the deep subcutaneous tissues. [facility] Mechanical valve with supratherapeutic INR: possibly related to recent course of bactrim Coumadin on hold, should be on aspirin also (not on med list) Given 10mg po vitamin K today Check PT/INR tomorrow Consider cardiology consultation CLL: on prednisone 10mg daily History of lacunar infaract Continue statin, should be on aspirin NAEEM Nocturnal CPAP GERD PO PPI BPH Continue finasteride and flomax Heart Healthy diet DVT ppx-on coumadin, will plan to start subcutaneous heparin as INR decreased Full code Problem List: 1. Cellulitis and abscess of trunk Pain Ratin Pain Location: llq Pain Goal: Pain 4 or less Pain Plan: prn Tomorrow's Labs & Rationales: cbc, pt/inr
--- NOTE | 2017-10-13 10:06 | PN- Att Addend ---
Attending Addendum Attending Brief Note Patient had a good night sleep. The affected area looks less swollen and less red Temp max 99 6 with no new changes on physical. INR 4.56 still supratherapeutic would have to wait for the diagnostic and therapeutic drainage continue IV antibiotics as per infectious diseases recommendations 24 TOTALS 10/13 0000 10/12 0000 Intake Total 490 Output Total Balance 490 Intake, IV 250 Intake, Oral 240 Patient 169 lb Weight Weight Reported by Patient Measurement Method Current Medications Sig/Kobe Start time Last Medication Dose Route Stop Time Status Admin Acetaminophen 650 MG Q6P PRN 10/12 1545 AC PO Clindamycin 600 MG ONCE ONE 10/12 1345 DC Dextrose/Water 50 ML IV 10/12 1414 Diphenhydramine HCl 0 .STK-MED ONE 10/12 1904 DC PO Diphenhydramine HCl 25 MG DAILY NEEDED PRN 10/12 1845 AC 10/12 PO 1900 Finasteride 5 MG DAILY 10/12 1646 AC 10/13 PO 0919 Folic Acid 1 MG DAILY 10/12 1646 AC 10/13 PO 0919 Hydroxyzine HCl 25 MG BID PRN 10/12 1845 AC PO Omeprazole 40 MG DAILY AC 10/13 0700 AC 10/13 PO 0537 Patient Medication 1 ED ONE ONE 10/13 1000 DC Teaching ED 10/13 1001 Pravastatin Sodium 20 MG 1700 10/12 1700 AC 10/12 PO 1822 Prednisone 10 MG DAILY 10/12 1647 AC 10/13 PO 0919 Tamsulosin HCl 0.4 MG BID 10/12 2100 AC 10/13 PO 0919 Vancomycin HCl 1,000 MG DAILY 10/13 0900 DC Sodium Chloride 250 ML IV Vancomycin HCl 1,000 MG Q24H 10/12 1800 AC 10/12 Sodium Chloride 250 ML IV 1933 Laboratory Tests 10/13/17 0525: Anion Gap 9, Estimated GFR > 60, BUN/Creatinine Ratio 15.5, PT 51.2 *H, INR 4.63 *H, CBC w Diff MAN DIFF ORDERED, RBC 3.83 L, MCV 77.5 L, MCH 25.1 L, MCHC 32.3 L, RDW 20.1 H, MPV 10.1, Gran % 44.2, Lymphocytes % 52.3 H, Monocytes % 3.2, Eosinophils % 0.1, Basophils % 0.2, Absolute Granulocytes 10.2 H, Segmented Neutrophils 46, Band Neutrophils 2, Absolute Lymphocytes 12.0 H, Lymphocytes 51, Monocytes 1 L, Absolute Monocytes 0.7 H, Absolute Eosinophils 0, Absolute Basophils 0.1, Platelet Estimate ADEQUATE, Hypochromic-Microcytic 1+ , Poikilocytosis FEW, Anisocytosis 2+, Microcytic Cells 1+, Ovalocytes 1+, [place] Cells FEW, Fld Total RBCs Counted 100 10/12/17 1515: Lactic Acid Cancelled 10/12/17 1401: PT 53.9 *H, INR 4.87 *H 10/12/17 1226: Lactic Acid 0.6 L, CBC w Diff MAN DIFF ORDERED, RBC 3.86 L, MCV 77.7 L, MCH 25.1 L, MCHC 32.3 L, RDW 19.6 H, MPV 8.9, Gran % 43.7, Lymphocytes % 52.3 H, Monocytes % 3.3, Eosinophils % 0.3, Basophils % 0.4, Absolute Granulocytes 9.7 H, Absolute Lymphocytes 11.6 H, Absolute Monocytes 0.7 H, Absolute Eosinophils 0.1, Absolute Basophils 0.1, Platelet Estimate VERIFIED BY SMEAR, Polychromasia 1+, Hypochromic-Microcytic 1+, Poikilocytosis 1+, Anisocytosis 1+, Microcytic Cells 1+, Ovalocytes 1+, Magdy Cells 1+ 10/12/17 1136: Anion Gap 11, Estimated GFR 58 L, BUN/Creatinine Ratio 19.2, Glucose 89, Calcium 9.0, Total Bilirubin 0.4, AST 27, ALT 16 L, Alkaline Phosphatase 84, Total Protein 5.7 L, Albumin 3.3 L, Globulin 2.4, Albumin/Globulin Ratio 1.4 Microbiology Date/Time Procedure - Status Source Growth 10/12 1401 Blood Culture - RECD BLOOD 10/12 1133 Blood Culture - RECD BLOOD Vital Signs Date Time Temp Pulse Resp B/P B/P Pulse O2 O2 Flow FiO2 Mean Ox Delivery Rate 10/13 0556 99.6 69 20 140/76 98 Room Air 10/13 0000 BIPAP 10/12 2235 98.1 75 20 120/70 96 10/12 2156 75 20 120/70 10/12 1914 98.4 77 20 153/86 98 Room Air 10/12 1501 97.7 76 16 138/70 98 Room Air Still holding Coumadin.
--- NOTE | 2017-10-13 11:29 | PN- General Surgery ---
Subjective Subjective: feels better. no f/c/s. pain improved. Objective Vital Signs and I&Os Vital Signs Date Time Temp Pulse Resp B/P B/P Pulse O2 O2 Flow FiO2 Mean Ox Delivery Rate 10/13 0556 99.6 69 20 140/76 98 Room Air / 0000 BIPAP 10/12 2235 98.1 75 20 120/70 96 / 2156 75 20 120/70 / 1914 98.4 77 20 153/86 98 Room Air 10/12 1501 97.7 76 16 138/70 98 Room Air Intake & Output 10/13 1600 10/13 0800 10/13 0000 10/12 1600 10/12 0800 10/12 0000 Intake Total 0 490 Output Total 400 Balance -400 490 Intake, IV 250 Intake, Oral 0 240 Number 2 Bowel Movements Output, Urine 400 Patient 169 lb 169 lb Weight Weight Reported by Patient Measurement Method Physical Exam: gen; looks well,age. nad abd; improved pustules with reduction in erythema. more focal induration and fluctuance. Current Medications: Current Medications Sig/Kobe Start time Last Medication Dose Route Stop Time Status Admin Acetaminophen 650 MG Q6P PRN 10/12 1545 AC PO Clindamycin 600 MG ONCE ONE 10/12 1345 DC Dextrose/Water 50 ML IV 10/12 1414 Diphenhydramine HCl 0 .STK-MED ONE 10/12 1904 DC PO Diphenhydramine HCl 25 MG DAILY NEEDED PRN 10/12 1845 AC 10/12 PO 1900 Finasteride 5 MG DAILY 10/12 1646 AC 10/13 PO 0919 Folic Acid 1 MG DAILY 10/12 1646 AC 10/13 PO 0919 Hydroxyzine HCl 25 MG BID PRN 10/12 1845 AC PO Omeprazole 40 MG DAILY AC 10/13 0700 AC 10/13 PO 0537 Patient Medication 1 ED ONE ONE 10/13 1000 DC Teaching ED 10/13 1001 Pravastatin Sodium 20 MG 1700 10/12 1700 AC 10/12 PO 1822 Prednisone 10 MG DAILY 10/12 1647 AC 10/13 PO 0919 Tamsulosin HCl 0.4 MG BID 10/12 2100 AC 10/13 PO 0919 Vancomycin HCl 1,000 MG DAILY 10/13 0900 DC Sodium Chloride 250 ML IV Vancomycin HCl 1,000 MG Q24H 10/12 1800 AC 10/12 Sodium Chloride 250 ML IV 1933 Results Last 48 Hours of Labs: Laboratory Tests 10/13 10/12 10/12 0525 1515 1401 Chemistry Sodium (137 - 145 mmol/L) 140 Potassium (3.5 - 5.1 mmol/L) 4.3 Chloride (98 - 107 mmol/L) 104 Carbon Dioxide (22 - 30 mmol/L) 27 Anion Gap (5 - 16) 9 BUN (9 - 20 mg/dL) 17 Creatinine (0.7 - 1.2 mg/dL) 1.1 Estimated GFR (>60 ml/min) > 60 BUN/Creatinine Ratio (7 - 25 %) 15.5 Lactic Acid Cancelled Coagulation PT (9.4 - 12.5 SEC) 51.2 *H 53.9 *H INR (0.90 - 1.17) 4.63 *H 4.87 *H Hematology CBC w Diff MAN DIFF ORDERED WBC (4.8 - 10.8 /CUMM) 23.0 H RBC (4.70 - 6.10 /CUMM) 3.83 L Hgb (14.0 - 18.0 G/DL) 9.6 L Hct (42 - 52 %) 29.7 L MCV (80.0 - 94.0 FL) 77.5 L MCH (27.0 - 31.0 PG) 25.1 L MCHC (33.0 - 37.0 G/DL) 32.3 L RDW (11.5 - 14.5 %) 20.1 H Plt Count (130 - 400 /CUMM) 245 MPV (7.4 - 10.4 FL) 10.1 Gran % (42.2 - 75.2 %) 44.2 Lymphocytes % (20.5 - 51.1 %) 52.3 H Monocytes % (1.7 - 9.3 %) 3.2 Eosinophils % (0 - 5 %) 0.1 Basophils % (0.0 - 2.0 %) 0.2 Absolute Granulocytes (1.4 - 6.5 /CUMM) 10.2 H Segmented Neutrophils (42.2 - 75.2 %) 46 Band Neutrophils (0.0 - 5.0 %) 2 Absolute Lymphocytes (1.2 - 3.4 /CUMM) 12.0 H Lymphocytes (20.5 - 51.1 %) 51 Monocytes (1.7 - 9.3 %) 1 L Absolute Monocytes (0.10 - 0.60 /CUMM) 0.7 H Absolute Eosinophils (0.0 - 0.7 /CUMM) 0 Absolute Basophils (0.0 - 0.2 /CUMM) 0.1 Platelet Estimate (ADEQUATE) ADEQUATE Hypochromic-Microcytic 1+ Poikilocytosis FEW Anisocytosis 2+ Microcytic Cells 1+ Ovalocytes 1+ Magdy Cells FEW Other Body Source Fld Total RBCs Counted (%) 100 10/12 10/12 1226 1136 Chemistry Sodium (137 - 145 mmol/L) 141 Potassium (3.5 - 5.1 mmol/L) 4.0 Chloride (98 - 107 mmol/L) 105 Carbon Dioxide (22 - 30 mmol/L) 25 Anion Gap (5 - 16) 11 BUN (9 - 20 mg/dL) 23 H Creatinine (0.7 - 1.2 mg/dL) 1.2 Estimated GFR (>60 ml/min) 58 L BUN/Creatinine Ratio (7 - 25 %) 19.2 Glucose (65 - 99 mg/dL) 89 Lactic Acid (0.7 - 2.1 mmol/L) 0.6 L Calcium (8.4 - 10.2 mg/dL) 9.0 Total Bilirubin (0.2 - 1.3 mg/dL) 0.4 AST (17 - 59 U/L) 27 ALT (21 - 72 U/L) 16 L Alkaline Phosphatase (< 127 U/L) 84 Total Protein (6.3 - 8.2 g/dL) 5.7 L Albumin (3.5 - 5.0 g/dL) 3.3 L Globulin (1.9 - 4.2 gm/dL) 2.4 Albumin/Globulin Ratio (1.1 - 2.2 %) 1.4 Hematology CBC w Diff MAN DIFF ORDERED WBC (4.8 - 10.8 /CUMM) 22.2 H RBC (4.70 - 6.10 /CUMM) 3.86 L Hgb (14.0 - 18.0 G/DL) 9.7 L Hct (42 - 52 %) 30.0 L MCV (80.0 - 94.0 FL) 77.7 L MCH (27.0 - 31.0 PG) 25.1 L MCHC (33.0 - 37.0 G/DL) 32.3 L RDW (11.5 - 14.5 %) 19.6 H Plt Count (130 - 400 /CUMM) 238 MPV (7.4 - 10.4 FL) 8.9 Gran % (42.2 - 75.2 %) 43.7 Lymphocytes % (20.5 - 51.1 %) 52.3 H Monocytes % (1.7 - 9.3 %) 3.3 Eosinophils % (0 - 5 %) 0.3 Basophils % (0.0 - 2.0 %) 0.4 Absolute Granulocytes (1.4 - 6.5 /CUMM) 9.7 H Absolute Lymphocytes (1.2 - 3.4 /CUMM) 11.6 H Absolute Monocytes (0.10 - 0.60 /CUMM) 0.7 H Absolute Eosinophils (0.0 - 0.7 /CUMM) 0.1 Absolute Basophils (0.0 - 0.2 /CUMM) 0.1 Platelet Estimate (ADEQUATE) VERIFIED BY SMEAR Polychromasia 1+ Hypochromic-Microcytic 1+ Poikilocytosis 1+ Anisocytosis 1+ Microcytic Cells 1+ Ovalocytes 1+ [place] Cells 1+ Assessment/Plan Assessment/Plan Cellulitis with abscess. Will need incision and drainage. INR still >4. Plan operative drainage tomorrow. Would benefit from oral vit K 5mg x 1. ok to eat today. npo after midnight.
--- NOTE | 2017-10-13 12:09 | PN- Infect Dx ---
Subjective Subjective: Afebrile on steroids. He slept well but did note discomfort in the left lower quadrant this morning. Objective Last 24 Hrs of Vital Signs/I&O Vital Signs Date Time Temp Pulse Resp B/P B/P Pulse O2 O2 Flow FiO2 Mean Ox Delivery Rate 10/13 0556 99.6 69 20 140/76 98 Room Air 10/13 0000 BIPAP 10/12 2235 98.1 75 20 120/70 96 / 2156 75 20 120/70 10/12 1914 98.4 77 20 153/86 98 Room Air 10/12 1501 97.7 76 16 138/70 98 Room Air Intake & Output 10/13 1600 10/13 0800 06 0000 Intake Total 0 490 Output Total 400 Balance -400 490 Intake, IV 250 Intake, Oral 0 240 Number 2 Bowel Movements Output, Urine 400 Patient 169 lb Weight Weight Reported by Patient Measurement Method Physical Exam Other Physical Findings: He appears comfortable in no acute distress Lungs are clear Heart regular rhythm with a click but with no audible murmur Abdomen reveals an erythematous, indurated area in the left lower quadrant, decreased from yesterday, tender to palpation, with positive bowel sounds Results Last 24 Hours of Lab Results: Laboratory Tests 10/13 10/12 10/12 0525 1515 1401 Chemistry Sodium (137 - 145 mmol/L) 140 Potassium (3.5 - 5.1 mmol/L) 4.3 Chloride (98 - 107 mmol/L) 104 Carbon Dioxide (22 - 30 mmol/L) 27 Anion Gap (5 - 16) 9 BUN (9 - 20 mg/dL) 17 Creatinine (0.7 - 1.2 mg/dL) 1.1 Estimated GFR (>60 ml/min) > 60 BUN/Creatinine Ratio (7 - 25 %) 15.5 Lactic Acid Cancelled Coagulation PT (9.4 - 12.5 SEC) 51.2 *H 53.9 *H INR (0.90 - 1.17) 4.63 *H 4.87 *H Hematology CBC w Diff MAN DIFF ORDERED WBC (4.8 - 10.8 /CUMM) 23.0 H RBC (4.70 - 6.10 /CUMM) 3.83 L Hgb (14.0 - 18.0 G/DL) 9.6 L Hct (42 - 52 %) 29.7 L MCV (80.0 - 94.0 FL) 77.5 L MCH (27.0 - 31.0 PG) 25.1 L MCHC (33.0 - 37.0 G/DL) 32.3 L RDW (11.5 - 14.5 %) 20.1 H Plt Count (130 - 400 /CUMM) 245 MPV (7.4 - 10.4 FL) 10.1 Gran % (42.2 - 75.2 %) 44.2 Lymphocytes % (20.5 - 51.1 %) 52.3 H Monocytes % (1.7 - 9.3 %) 3.2 Eosinophils % (0 - 5 %) 0.1 Basophils % (0.0 - 2.0 %) 0.2 Absolute Granulocytes (1.4 - 6.5 /CUMM) 10.2 H Segmented Neutrophils (42.2 - 75.2 %) 46 Band Neutrophils (0.0 - 5.0 %) 2 Absolute Lymphocytes (1.2 - 3.4 /CUMM) 12.0 H Lymphocytes (20.5 - 51.1 %) 51 Monocytes (1.7 - 9.3 %) 1 L Absolute Monocytes (0.10 - 0.60 /CUMM) 0.7 H Absolute Eosinophils (0.0 - 0.7 /CUMM) 0 Absolute Basophils (0.0 - 0.2 /CUMM) 0.1 Platelet Estimate (ADEQUATE) ADEQUATE Hypochromic-Microcytic 1+ Poikilocytosis FEW Anisocytosis 2+ Microcytic Cells 1+ Ovalocytes 1+ [place] Cells FEW Other Body Source Fld Total RBCs Counted (%) 100 06/04 1226 Chemistry Lactic Acid (0.7 - 2.1 mmol/L) 0.6 L Hematology CBC w Diff MAN DIFF ORDERED WBC (4.8 - 10.8 /CUMM) 22.2 H RBC (4.70 - 6.10 /CUMM) 3.86 L Hgb (14.0 - 18.0 G/DL) 9.7 L Hct (42 - 52 %) 30.0 L MCV (80.0 - 94.0 FL) 77.7 L MCH (27.0 - 31.0 PG) 25.1 L MCHC (33.0 - 37.0 G/DL) 32.3 L RDW (11.5 - 14.5 %) 19.6 H Plt Count (130 - 400 /CUMM) 238 MPV (7.4 - 10.4 FL) 8.9 Gran % (42.2 - 75.2 %) 43.7 Lymphocytes % (20.5 - 51.1 %) 52.3 H Monocytes % (1.7 - 9.3 %) 3.3 Eosinophils % (0 - 5 %) 0.3 Basophils % (0.0 - 2.0 %) 0.4 Absolute Granulocytes (1.4 - 6.5 /CUMM) 9.7 H Absolute Lymphocytes (1.2 - 3.4 /CUMM) 11.6 H Absolute Monocytes (0.10 - 0.60 /CUMM) 0.7 H Absolute Eosinophils (0.0 - 0.7 /CUMM) 0.1 Absolute Basophils (0.0 - 0.2 /CUMM) 0.1 Platelet Estimate (ADEQUATE) VERIFIED BY SMEAR Polychromasia 1+ Hypochromic-Microcytic 1+ Poikilocytosis 1+ Anisocytosis 1+ Microcytic Cells 1+ Ovalocytes 1+ [place] Cells 1+ Last 24 Hours of Pavel Results: Blood cultures October 12 negative Assessment/Plan ID Impression: Left lower quadrant abdominal wall inflammation, with the ultrasound suggesting a subcutaneous panniculitis with a small evolving abscess. Though he does appear to have improved on Vancomycin, aspiration/drainage would still be helpful and will identify the responsible pathogen, which is suspected to be MRSA. This, unfortunately, had to be deferred because of his elevated INR. He remains afebrile (on steroids) with a persistent leukocytosis, which is likely secondary to his underlying CLL. Suggestion: 1. Await I&D in the a.m. per Surgery 2. Warm compresses to the left lower quadrant 3. Continue Vancomycin
[2017-10-13 13:48] VITALS: BP 100/62
[2017-10-13 22:42] VITALS: BP 128/80
[2017-10-14 05:44] VITALS: BP 142/72
--- NOTE | 2017-10-14 07:02 | PN- Housestaff ---
Subjective Follow-up For: LLQ cellulitis/abscess Subjective: afebrile, LLQ tenderness and erythema unchanged, no drainage this morning Review of Systems Constitutional: Reports: see HPI. Objective Last 24 Hrs of Vital Signs/I&O Vital Signs Date Time Temp Pulse Resp B/P B/P Pulse O2 O2 Flow FiO2 Mean Ox Delivery Rate 10/14 0828 81 147/69 10/14 0618 94 10/14 0544 98.0 60 20 142/72 99 Room Air 10/14 0403 97 10/14 0053 72 98 10/14 0000 BIPAP 10/13 2242 98.1 84 20 128/80 94 Room Air 10/13 2209 69 98 / 2152 84 128/80 / 1348 98.6 90 20 100/62 97 Room Air Intake & Output 10/14 1600 10/14 0800 10/14 0000 Intake Total 200 400 Output Total 600 Balance -400 400 Intake, IV 300 Intake, Oral 200 100 Output, Urine 600 Patient 76.799 kg Weight Physical Exam General Appearance: Alert, Oriented X3, Cooperative, No Acute Distress Cardiovascular: Regular Rate, Normal S1, Normal S2, No Murmurs Lungs: Clear to Auscultation, Normal Air Movement Abdomen: Normal Bowel Sounds, Soft, llq tenderness, erythematous with fluctuance no drainage Extremities: No Clubbing, No Cyanosis, No Edema, Normal Pulses Current Medications: Current Medications Sig/Kobe Start time Last Medication Dose Route Stop Time Status Admin Acetaminophen 650 MG Q6P PRN 10/12 1545 AC PO Diphenhydramine HCl 25 MG DAILY NEEDED PRN 10/12 1845 AC 10/13 PO 1658 Finasteride 5 MG DAILY 10/12 1646 AC 10/14 PO 0828 Folic Acid 1 MG DAILY 10/12 1646 AC 10/14 PO 0828 Heparin Sodium 25,000 UNIT Q24H 10/14 1145 AC (Porcine) IV Sodium Chloride 500 ML Hydroxyzine HCl 25 MG BID PRN 10/12 1845 AC PO Omeprazole 40 MG DAILY AC 10/13 0700 AC 10/14 PO 0501 Phytonadione 10 MG 1215 10/13 1215 DC 10/13 PO 10/13 1216 1347 Pravastatin Sodium 20 MG 1700 10/12 1700 AC 10/13 PO 1659 Prednisone 10 MG DAILY 10/12 1647 AC 10/14 PO 0828 Tamsulosin HCl 0.4 MG BID 10/12 2100 AC 10/14 PO 0828 Vancomycin HCl 1,000 MG Q24H 10/12 1800 AC 10/13 Sodium Chloride 250 ML IV 1712 Last 24 Hrs of Lab/Pavel Results Last 24 Hrs of Labs/Mics: Laboratory Tests 10/14/17 0722: CBC w Diff MAN DIFF ORDERED, RBC 3.86 L, MCV 77.4 L, MCH 25.5 L, MCHC 33.0, RDW 19.3 H, MPV 9.0, Gran % 35.8 L, Lymphocytes % 61.7 H, Monocytes % 2.0, Eosinophils % 0.4, Basophils % 0.1, Absolute Granulocytes 9.0 H, Segmented Neutrophils 32 L, Absolute Lymphocytes 15.4 H, Lymphocytes 63 H, Monocytes 4, Absolute Monocytes 0.5, Eosinophils 1, Absolute Eosinophils 0.1, Absolute Basophils 0, Platelet Estimate ADEQUATE, Hypochromic-Microcytic 1+, Poikilocytosis 1+, Anisocytosis 2+, Microcytic Cells 1+, Ovalocytes 1+ 10/14/17 0615: PT 13.0 H, INR 1.19 H 10/13/17 1510: Urine Color YEL, Urine Clarity HAZY H, Urine pH 6.0, Ur Specific [place] <= 1.005, Urine Protein NEG, Urine Ketones NEG, Urine Nitrite NEG, Urine Bilirubin NEG, Urine Urobilinogen 0.2, Ur Leukocyte Esterase NEG, Ur Microscopic SEDIMENT EXAMINED, Micro UA Comment NEGATIVE MICROSCOPIC, Urine Hemoglobin SMALL H, Urine Glucose NEG Microbiology 10/13 1510 URINE ROUT: Urine Culture - RES Assessment/Plan Assessment: 81 year old man with PMHx of CLL, lung cancer, recent left abdominal hernia repair (04/2017), right lower extremity cellulitis, and mechanical aortic valve on Coumadin was sent in by his PCP for evalution of left lower abdominal swelling, redness, with occasional drainage without fever. Patient was prescribed Bactrim which he took for 4 days prior to admission admitted for management of left lower quadrant cellulitis and abscess concerning for MRSA. Left lower quadrant purulent abdominal wall cellulitis/abscess: History of MRSA cellulitis Leukocytosis increasing to 25,000 (on vancomycin and chronic steroids for CLL) Continue vancomycin 1g IV daily Outpatient antibiotic failure with bactrim 1.2cm abscess but was determined to be too small for IR drainage Plan for bedside I+D with general surgery and culture after INR <2.5 Blood cultures NGTD Check UA and culture Follow up infectious disease recommendations Ultrasound-Extensive cutaneous and deep subcutaneous soft tissue edema and inflammation is seen in the left mid abdomen at the level of the umbilicus, consistent with cutaneous cellulitis and subcutaneous panniculitis. A small 1.2 cm evolving abscess collection is suspected within the deep subcutaneous tissues. [facility] [place] Mechanical valve with supratherapeutic INR: possibly related to recent course of bactrim Coumadin on hold, should be on aspirin also (not on med list) Given 10mg po vitamin K yesterday INR 1.19 this morning, will start IV heparin with plan to hold prior to I+D CLL: on prednisone 10mg daily History of lacunar infaract Continue statin, should be on aspirin NAEEM Nocturnal CPAP GERD PO PPI BPH Continue finasteride and flomax Heart Healthy diet DVT ppx-on coumadin, and intravenous heparin as INR subtherapeutic Full code Problem List: 1. CLL (chronic lymphocytic leukemia) 2. Cellulitis and abscess of trunk Pain Ratin Pain Location: llq Pain Goal: Pain 4 or less Pain Plan: prn Tomorrow's Labs & Rationales: cbc, pt/inr
[2017-10-14 08:07] LABS: ABSOLUTE BASOPHIL COUNT 0 /CUMM (0.0-0.2); ABSOLUTE EOSINOPHIL COUNT 0.1 /CUMM (0.0-0.7); ABSOLUTE LYMPH COUNT 15.4 /CUMM (1.2-3.4); ABSOLUTE MONOCYTE COUNT 0.5 /CUMM (0.10-0.60); BASOPHIL % 0.1 % (0.0-2.0); EOSINOPHIL % 0.4 % (0-5); GRANULOCYTE % 35.8 % (42.2-75.2); HEMATOCRIT 29.9 % (42-52); MEAN CORPUSCULAR HGB 25.5 PG (27.0-31.0); MEAN CORPUSCULAR VOLUME 77.4 FL (80.0-94.0); PLATELET COUNT 265 /CUMM (130-400); RBC DISTRIBUTION WIDTH 19.3 % (11.5-14.5); RED BLOOD CELL CT 3.86 /CUMM (4.70-6.10)
--- NOTE | 2017-10-14 09:51 | PN- Att Addend ---
Attending Addendum Attending Brief Note In bed, but ambulating the area to be looks about the same and yesterday. Vital signs are stable is afebrile with no major changes on physical INR today is 1.19 will notify surgery and IR if they want to proceed with any kind of aspiration. Continue present treatment. Intake & Output 10/14 0400 10/12 0400 Intake Total 200 400 600 490 Output Total 600 1500 Balance -400 400 -900 490 Intake, IV 300 250 Intake, Oral 200 100 600 240 Number 2 Bowel Movements Output, Urine 600 1500 Patient 169 lb 169 lb 169 lb Weight Weight Reported by Patient Measurement Method Laboratory Tests 10/14/17 0722: CBC w Diff MAN DIFF ORDERED, RBC 3.86 L, MCV 77.4 L, MCH 25.5 L, MCHC 33.0, RDW 19.3 H, MPV 9.0, Gran % 35.8 L, Lymphocytes % 61.7 H, Monocytes % 2.0, Eosinophils % 0.4, Basophils % 0.1, Absolute Granulocytes 9.0 H, Segmented Neutrophils 32 L, Absolute Lymphocytes 15.4 H, Lymphocytes 63 H, Monocytes 4, Absolute Monocytes 0.5, Eosinophils 1, Absolute Eosinophils 0.1, Absolute Basophils 0, Platelet Estimate ADEQUATE, Hypochromic-Microcytic 1+, Poikilocytosis 1+, Anisocytosis 2+, Microcytic Cells 1+, Ovalocytes 1+ 10/14/17 0615: PT 13.0 H, INR 1.19 H 10/13/17 1510: Urine Color YEL, Urine Clarity HAZY H, Urine pH 6.0, Ur Specific [place] <= 1.005, Urine Protein NEG, Urine Ketones NEG, Urine Nitrite NEG, Urine Bilirubin NEG, Urine Urobilinogen 0.2, Ur Leukocyte Esterase NEG, Ur Microscopic SEDIMENT EXAMINED, Micro UA Comment NEGATIVE MICROSCOPIC, Urine Hemoglobin SMALL H, Urine Glucose NEG 10/13/17 0525: Anion Gap 9, Estimated GFR > 60, BUN/Creatinine Ratio 15.5, PT 51.2 *H, INR 4.63 *H, CBC w Diff MAN DIFF ORDERED, RBC 3.83 L, MCV 77.5 L, MCH 25.1 L, MCHC 32.3 L, RDW 20.1 H, MPV 10.1, Gran % 44.2, Lymphocytes % 52.3 H, Monocytes % 3.2, Eosinophils % 0.1, Basophils % 0.2, Absolute Granulocytes 10.2 H, Segmented Neutrophils 46, Band Neutrophils 2, Absolute Lymphocytes 12.0 H, Lymphocytes 51, Monocytes 1 L, Absolute Monocytes 0.7 H, Absolute Eosinophils 0, Absolute Basophils 0.1, Platelet Estimate ADEQUATE, Hypochromic-Microcytic 1+ , Poikilocytosis FEW, Anisocytosis 2+, Microcytic Cells 1+, Ovalocytes 1+, [place] Cells FEW, Fld Total RBCs Counted 100 10/12/17 1515: Lactic Acid Cancelled 10/12/17 1401: PT 53.9 *H, INR 4.87 *H 10/12/17 1226: Lactic Acid 0.6 L, CBC w Diff MAN DIFF ORDERED, RBC 3.86 L, MCV 77.7 L, MCH 25.1 L, MCHC 32.3 L, RDW 19.6 H, MPV 8.9, Gran % 43.7, Lymphocytes % 52.3 H, Monocytes % 3.3, Eosinophils % 0.3, Basophils % 0.4, Absolute Granulocytes 9.7 H, Absolute Lymphocytes 11.6 H, Absolute Monocytes 0.7 H, Absolute Eosinophils 0.1, Absolute Basophils 0.1, Platelet Estimate VERIFIED BY SMEAR, Polychromasia 1+, Hypochromic-Microcytic 1+, Poikilocytosis 1+, Anisocytosis 1+, Microcytic Cells 1+, Ovalocytes 1+, [place] Cells 1+ 10/12/17 1136: Anion Gap 11, Estimated GFR 58 L, BUN/Creatinine Ratio 19.2, Glucose 89, Calcium 9.0, Total Bilirubin 0.4, AST 27, ALT 16 L, Alkaline Phosphatase 84, Total Protein 5.7 L, Albumin 3.3 L, Globulin 2.4, Albumin/Globulin Ratio 1.4 Microbiology 10/13 1509 URINE ROUT: Urine Culture - RES 10/12 1400 BLOOD: Blood Culture - RES 10/12 1132 BLOOD: Blood Culture - RES Microbiology 10/13 1509 URINE ROUT: Urine Culture - RES 10/12 1400 BLOOD: Blood Culture - RES 10/12 1132 BLOOD: Blood Culture - RES Vital Signs Date Time Temp Pulse Resp B/P B/P Pulse O2 O2 Flow FiO2 Mean Ox Delivery Rate 10/14 0828 81 147/69 06 0618 94 06/ 0544 98.0 60 20 142/72 99 Room Air 06/06 0403 97 06/ 0053 72 98 /06 0000 BIPAP 10/13 2242 98.1 84 20 128/80 94 Room Air 06/05 2209 69 98 06/05 2152 84 128/80 06/05 1348 98.6 90 20 100/62 97 Room Air
--- NOTE | 2017-10-14 11:49 | PN- Infect Dx ---
Subjective Subjective: Afebrile. He notes some discomfort in the left lower quadrant abdominal wall, especially with activity. Objective Last 24 Hrs of Vital Signs/I&O Vital Signs Date Time Temp Pulse Resp B/P B/P Pulse O2 O2 Flow FiO2 Mean Ox Delivery Rate 10/14 0828 81 147/69 10/14 0618 94 10/14 0544 98.0 60 20 142/72 99 Room Air 10/14 0403 97 10/14 0053 72 98 10/14 0000 BIPAP 10/13 2242 98.1 84 20 128/80 94 Room Air 10/13 2209 69 98 10/13 2152 84 128/80 10/13 1348 98.6 90 20 100/62 97 Room Air Intake & Output 10/14 1600 10/14 0800 10/14 0000 Intake Total 200 400 Output Total 600 Balance -400 400 Intake, IV 300 Intake, Oral 200 100 Output, Urine 600 Patient 169 lb Weight Physical Exam Other Physical Findings: He appears comfortable in no acute distress Abdomen localized erythema and induration in the left lower quadrant, tender to palpation, with no open wounds or drainage Results Last 24 Hours of Lab Results: Laboratory Tests 10/14 10/14 0722 0615 Coagulation PT (9.4 - 12.5 SEC) 13.0 H INR (0.90 - 1.17) 1.19 H Hematology CBC w Diff MAN DIFF ORDERED WBC (4.8 - 10.8 /CUMM) 25.0 H RBC (4.70 - 6.10 /CUMM) 3.86 L Hgb (14.0 - 18.0 G/DL) 9.9 L Hct (42 - 52 %) 29.9 L MCV (80.0 - 94.0 FL) 77.4 L MCH (27.0 - 31.0 PG) 25.5 L MCHC (33.0 - 37.0 G/DL) 33.0 RDW (11.5 - 14.5 %) 19.3 H Plt Count (130 - 400 /CUMM) 265 MPV (7.4 - 10.4 FL) 9.0 Gran % (42.2 - 75.2 %) 35.8 L Lymphocytes % (20.5 - 51.1 %) 61.7 H Monocytes % (1.7 - 9.3 %) 2.0 Eosinophils % (0 - 5 %) 0.4 Basophils % (0.0 - 2.0 %) 0.1 Absolute Granulocytes (1.4 - 6.5 /CUMM) 9.0 H Segmented Neutrophils (42.2 - 75.2 %) 32 L Absolute Lymphocytes (1.2 - 3.4 /CUMM) 15.4 H Lymphocytes (20.5 - 51.1 %) 63 H Monocytes (1.7 - 9.3 %) 4 Absolute Monocytes (0.10 - 0.60 /CUMM) 0.5 Eosinophils (0 - 5.0 %) 1 Absolute Eosinophils (0.0 - 0.7 /CUMM) 0.1 Absolute Basophils (0.0 - 0.2 /CUMM) 0 Platelet Estimate (ADEQUATE) ADEQUATE Hypochromic-Microcytic 1+ Poikilocytosis 1+ Anisocytosis 2+ Microcytic Cells 1+ Ovalocytes 1+ 06/05 1510 Urines Urine Color (YEL,AMB,STR) YEL Urine Clarity (CLEAR) HAZY H Urine pH (5.0 - 8.0) 6.0 Ur Specific Model (1.001 - 1.035) <= 1.005 Urine Protein (NEG,<30 MG/DL) NEG Urine Ketones (NEG) NEG Urine Nitrite (NEG) NEG Urine Bilirubin (NEG) NEG Urine Urobilinogen (0.1 - 1.0 EU/dl) 0.2 Ur Leukocyte Esterase (NEG) NEG Ur Microscopic SEDIMENT EXAMINED Micro UA Comment NEGATIVE MICROSCOPIC Urine Hemoglobin (NEG) SMALL H Urine Glucose (N MG/DL) NEG Last 24 Hours of Pavel Results: Blood cultures October 12 negative Urine culture October 13 negative Assessment/Plan ID Impression: Stable, with temperatures remaining normal (on steroids) and white blood cell count elevated, presumably secondary to his CLL, on Vancomycin Day 2 of treatment for a left lower quadrant quadrant abdominal wall infection/abscess presumably secondary to MRSA, with plans for drainage in the OR later today. Suggestion: 1. Await I&D in the OR later today 2. Continue Vancomycin pending above
--- NOTE | 2017-10-14 12:53 | Cons- Cardiology ---
General Information and HPI Consulting Request Date of Consult: 10/14/17 Requested By: Chin Freeman MD Reason for Consult: Assistance with anticoagulation management Source of Information: patient, family, old records Exam Limitations: no limitations History of Present Illness: the patient is a 81-year-old male. His past medical history is remarkable for CLL, on prednisone, sleep apnea on BiPAP, a metallic prosthetic aortic valve on warfarin therapy, prior endocarditis, lung cancer in 2009 with right lower lobe resection, prior stroke, prior MRSA infection, etc. The patient now presents to the hospital with evidence of cellulitis and fluctuant abscess. He is tentatively scheduled to go to the operating room for drainage. In preparation for that his warfarin was held and reversed. I was asked to see the patient for assistance with management of his anticoagulation and his cardiac issues. Allergies/Medications Allergies: Coded Allergies: Penicillins (UNKNOWN PER PT A KID 11/10/15) guaifenesin (From ROBITUSSIN) (Mild, "AFFECT MY PROSTATE" 11/10/15) Home Med List: Acetaminophen (Tylenol Extra Strength) 500 MG TABLET 1 TAB PO PRN PAIN ( Reported) Bifidobacterium Infantis (Align) 4 MG (1 BILLION CELL) CAPSULE 1 CAP PO DAILY PRN GI (Reported) Bioflav,Lemon/Vit Bcomp,C (Lipo-Flavonoid Plus Caplet) 200 MG-100 MG TABLET 1 TAB PO DAILY SUPPLEMENT (Reported) Finasteride 5 MG TABLET 1 TAB PO DAILY PROSTATE (Reported) Folic Acid 1 MG TABLET 1 TAB PO DAILY SUPPLEMENT (Reported) Meclizine HCl 25 MG TABLET 1 TAB PO AD PRN VERTIGO (Reported) Metoprolol Succ XL (Toprol XL) 25 MG TAB.ER.24H 1 TAB PO DAILY SVT Omeprazole 40 MG CAPSULE.DR 1 CAP PO DAILY GI (Reported) Pravastatin Sodium 80 MG TABLET 1 TAB PO DAILY CHOLESTEROL (Reported) Prednisone 10 MG TABLET 1 TAB PO DAILY STEROID (Reported) Sulfamethoxazole/Trimethoprim (Sulfamethoxazole-Tmp Ds Tablet) 800 MG-160 MG TABLET 1 TAB PO BID ANTIBIOTIC, INFECTION (Reported) Tamsulosin HCl (Flomax) 0.4 MG CAP.ER.24H 1 CAP PO BID PROSTATE (Reported) Warfarin Sodium 5 MG TABLET 1 TAB PO DAILY BLOOD THINNER (Reported) Current Medications: Current Medications Sig/Kobe Start time Last Medication Dose Route Stop Time Status Admin Acetaminophen 650 MG Q6P PRN 10/12 1545 AC PO Diphenhydramine HCl 25 MG DAILY NEEDED PRN 10/12 1845 AC 10/13 PO 1658 Finasteride 5 MG DAILY 10/12 1646 AC 10/14 PO 0828 Folic Acid 1 MG DAILY 10/12 1646 AC 10/14 PO 0828 Heparin Sodium 25,000 UNIT Q24H 10/14 1145 DC (Porcine) IV Sodium Chloride 500 ML Hydroxyzine HCl 25 MG BID PRN 10/12 1845 AC PO Omeprazole 40 MG DAILY AC 10/13 0700 AC 10/14 PO 0501 Pravastatin Sodium 20 MG 1700 / 1700 AC 10/13 PO 1659 Prednisone 10 MG DAILY 10/12 1647 AC 10/14 PO 0828 Tamsulosin HCl 0.4 MG BID 10/12 2100 AC 10/14 PO 0828 Vancomycin HCl 1,000 MG Q24H 10/12 1800 AC 10/13 Sodium Chloride 250 ML IV 1712 Past History Travel History Traveled to [place] past 21 day No Medical History Neurological: 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 EENT: NONE Cardiovascular: hyperlipidemia, ENDOCARDITIS Respiratory: obstructive sleep apnea Gastrointestinal: GERD, irritable bowel syndrome, pancreatitis (gallstone- induced) Hepatic: cholecystitis Renal: benign prost hyperplasia, PROSTATITIS- denied recent abx Musculoskeletal: osteoarthritis, HERNIATED DISCS Psychiatric: NONE Endocrine: hyperthyroidism Blood Disorders: anemia, *CLL Cancer(s): 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 , Age 70; Cause: Myocardial infarction. FATHER, , Age 94; Cause: OBS (organic brain syndrome). Psychosocial History Where Do You Live? Home Who Do You Live With? spouse (Nohemy) Services at Home: None Primary Language: Iraqi Smoking Status: Former Smoker ETOH Use: denies use Illicit Drug Use: denies illicit drug use Living Will? no Power of Bedspread Folder/HCP? no Functional Ability ADLs Independent: dressing, eating, toileting, bathing. Ambulation: independent IADLs Independent: shopping, housework, finances, food prep, telephone, transportation , medication admin. Exam & Diagnostic Data Vital Signs and I&O Vital Signs Date Time Temp Pulse Resp B/P B/P Pulse O2 O2 Flow FiO2 Mean Ox Delivery Rate 10/14 0828 81 147/69 10/14 0618 94 10/14 0544 98.0 60 20 142/72 99 Room Air 10/14 0403 97 10/14 0053 72 98 10/14 0000 BIPAP 10/13 2242 98.1 84 20 128/80 94 Room Air 10/13 2209 69 98 10/13 2152 84 128/80 10/13 1348 98.6 90 20 100/62 97 Room Air Intake & Output 10/14 1600 10/14 0800 10/14 0000 10/13 1600 10/13 0800 10/13 0000 Intake Total 200 400 600 0 490 Output Total 600 1100 400 Balance -400 400 -500 -400 490 Intake, IV 300 250 Intake, Oral 200 100 600 0 240 Number 2 Bowel Movements Output, Urine 600 1100 400 Patient 169 lb 169 lb Weight Weight Reported by Patient Measurement Method Physical Exam: General Appearance Alert, Oriented X3, Cooperative, No Acute Distress Skin No Rashes, patient has lower left sided wound at ankle that is covered by bandage status post wound VAC removal.surrounding erythema and edema. HEENT Atraumatic, EOMI, Mucous Membr. moist/pink Cardiovascular Regular Rate, Normal S1, Normal S2, crisp prosthetic valve sounds , 1 to 2/6 systolic ejection murmur Lungs Clear to Auscultationaand percussion bilaterally Abdomen Normal Bowel Sounds, Soft, No Tenderness Neurological Normal /nonfocal Extremities No Clubbing, No Cyanosis, No Edema, Normal Pulses Vascular Normal Pulses, Pulses Symmetrical Labs/Pavel Results: Laboratory Tests 10/14 10/14 0722 0615 Coagulation PT (9.4 - 12.5 SEC) 13.0 H INR (0.90 - 1.17) 1.19 H Hematology CBC w Diff MAN DIFF ORDERED WBC (4.8 - 10.8 /CUMM) 25.0 H RBC (4.70 - 6.10 /CUMM) 3.86 L Hgb (14.0 - 18.0 G/DL) 9.9 L Hct (42 - 52 %) 29.9 L MCV (80.0 - 94.0 FL) 77.4 L MCH (27.0 - 31.0 PG) 25.5 L MCHC (33.0 - 37.0 G/DL) 33.0 RDW (11.5 - 14.5 %) 19.3 H Plt Count (130 - 400 /CUMM) 265 MPV (7.4 - 10.4 FL) 9.0 Gran % (42.2 - 75.2 %) 35.8 L Lymphocytes % (20.5 - 51.1 %) 61.7 H Monocytes % (1.7 - 9.3 %) 2.0 Eosinophils % (0 - 5 %) 0.4 Basophils % (0.0 - 2.0 %) 0.1 Absolute Granulocytes (1.4 - 6.5 /CUMM) 9.0 H Segmented Neutrophils (42.2 - 75.2 %) 32 L Absolute Lymphocytes (1.2 - 3.4 /CUMM) 15.4 H Lymphocytes (20.5 - 51.1 %) 63 H Monocytes (1.7 - 9.3 %) 4 Absolute Monocytes (0.10 - 0.60 /CUMM) 0.5 Eosinophils (0 - 5.0 %) 1 Absolute Eosinophils (0.0 - 0.7 /CUMM) 0.1 Absolute Basophils (0.0 - 0.2 /CUMM) 0 Platelet Estimate (ADEQUATE) ADEQUATE Hypochromic-Microcytic 1+ Poikilocytosis 1+ Anisocytosis 2+ Microcytic Cells 1+ Ovalocytes 1+ 10/13 1510 Urines Urine Color (YEL,AMB,STR) YEL Urine Clarity (CLEAR) HAZY H Urine pH (5.0 - 8.0) 6.0 Ur Specific [place] (1.001 - 1.035) <= 1.005 Urine Protein (NEG,<30 MG/DL) NEG Urine Ketones (NEG) NEG Urine Nitrite (NEG) NEG Urine Bilirubin (NEG) NEG Urine Urobilinogen (0.1 - 1.0 EU/dl) 0.2 Ur Leukocyte Esterase (NEG) NEG Ur Microscopic SEDIMENT EXAMINED Micro UA Comment NEGATIVE MICROSCOPIC Urine Hemoglobin (NEG) SMALL H Urine Glucose (N MG/DL) NEG 10/13 10/12 10/12 0525 1515 1401 Chemistry Sodium (137 - 145 mmol/L) 140 Potassium (3.5 - 5.1 mmol/L) 4.3 Chloride (98 - 107 mmol/L) 104 Carbon Dioxide (22 - 30 mmol/L) 27 Anion Gap (5 - 16) 9 BUN (9 - 20 mg/dL) 17 Creatinine (0.7 - 1.2 mg/dL) 1.1 Estimated GFR (>60 ml/min) > 60 BUN/Creatinine Ratio (7 - 25 %) 15.5 Lactic Acid Cancelled Coagulation PT (9.4 - 12.5 SEC) 51.2 *H 53.9 *H INR (0.90 - 1.17) 4.63 *H 4.87 *H Hematology CBC w Diff MAN DIFF ORDERED WBC (4.8 - 10.8 /CUMM) 23.0 H RBC (4.70 - 6.10 /CUMM) 3.83 L Hgb (14.0 - 18.0 G/DL) 9.6 L Hct (42 - 52 %) 29.7 L MCV (80.0 - 94.0 FL) 77.5 L MCH (27.0 - 31.0 PG) 25.1 L MCHC (33.0 - 37.0 G/DL) 32.3 L RDW (11.5 - 14.5 %) 20.1 H Plt Count (130 - 400 /CUMM) 245 MPV (7.4 - 10.4 FL) 10.1 Gran % (42.2 - 75.2 %) 44.2 Lymphocytes % (20.5 - 51.1 %) 52.3 H Monocytes % (1.7 - 9.3 %) 3.2 Eosinophils % (0 - 5 %) 0.1 Basophils % (0.0 - 2.0 %) 0.2 Absolute Granulocytes (1.4 - 6.5 /CUMM) 10.2 H Segmented Neutrophils (42.2 - 75.2 %) 46 Band Neutrophils (0.0 - 5.0 %) 2 Absolute Lymphocytes (1.2 - 3.4 /CUMM) 12.0 H Lymphocytes (20.5 - 51.1 %) 51 Monocytes (1.7 - 9.3 %) 1 L Absolute Monocytes (0.10 - 0.60 /CUMM) 0.7 H Absolute Eosinophils (0.0 - 0.7 /CUMM) 0 Absolute Basophils (0.0 - 0.2 /CUMM) 0.1 Platelet Estimate (ADEQUATE) ADEQUATE Hypochromic-Microcytic 1+ Poikilocytosis FEW Anisocytosis 2+ Microcytic Cells 1+ Ovalocytes 1+ Magdy Cells FEW Other Body Source Fld Total RBCs Counted (%) 100 Diagnostic Data Other Results Abdominal US: IMPRESSION: Extensive cutaneous and deep subcutaneous soft tissue edema and inflammation is seen in the left mid abdomen at the level of the umbilicus, consistent with cutaneous cellulitis and subcutaneous panniculitis. A small 1.2 cm evolving abscess collection is suspected within the deep subcutaneous tissues. Assessment/Plan Assessment/Plan assessment: 1. [facility] mechanical aortic valve on warfarin therapy 2. Left lower quadrant abdominal wall purulent cellulitis with abscess 3. CLL on prednisone 4. History of lung cancer status post right lower lobectomy 5. History of MRSA cellulitis 6. History of endocarditis 7. GERD 8. hyperlipidemia Recommendations: -The patient appears to be stable from a cardiac standpoint. -Scheduled to go to the operating room later today for abscess drainage -Warfarin has been held and reversed. INR acceptable for procedure -I would start the patient on IV heparin drip soon as okay with surgery postprocedure and reinstitute warfarin as soon as it is clear that further procedures are planned. -Please try to obtain copies of last cardiology records from primary cutting and splicing supervisor for review as well. Consult Acknowledgment - Thank you for your consult request.
[2017-10-14 14:38] VITALS: BP 114/58
--- NOTE | 2017-10-14 17:25 | PN- General Surgery ---
Surgical Brief Attending Note Brief Attending Note: Patient with plans for incision and drainage of abscess today. Upon arrival to OR, there was not an EKG on the chart. EKG was performed and patient found to be in SVT with rate 170. d/w cardiolgist performed. recommended to cancel case and reschedule for tomorrow. start heparin gtt and address SVT/RO NH.
--- NOTE | 2017-10-14 17:38 | Event Note ---
Event Note Event Note: Situation Patient found to be tachycardic in the pre-operative evaluation area. Background 81 year old man with multiple medical problem significant for mechanical aortic valve on coumadin and left abdominal hernia repair (april 2012) admitted for left abdominal cellulitis. Assessment Patient was transported down to the surgical department and found to be tachycardic in the pre-operative evaluation area. 12-lead EKG obtained demonstrated SVT. Patient remained unaware of his elevated heart rate and asymptomatic with unremarkable physical exam. Patients blood pressure ranged 60- 90s systolic during the evaluation for which 500 cc NS bolus was ordered. Vagal manuvers failed to terminate the rhythm. Continous EKG was run and 6 mg of adenosine was pushed with saline flush. SVT/AVNRT rhythm terminated into a normal sinus rhythm. Aviation Electrician Dr. Pavel Brower, General surgeon Dr. Wolf Bustamante, and attending Dr. Chin Freeman made aware. Patients Ashanti was contacted and updated regarding these events. Plan -Transfer to telemetry for for monitoring -Serial troponin / EKG -Heparin GGT -NS 500 cc bolus -Start Metoprolol 12.5 mg PO BID -Start diet for tonight, but keep NPO after midnight
[2017-10-14 18:56] VITALS: BP 120/62
[2017-10-14 21:36] VITALS: BP 126/70
[2017-10-15 01:16] LABS: PTT 52 SEC (25-37)
[2017-10-15 06:13] VITALS: BP 122/59
--- NOTE | 2017-10-15 07:16 | PN- Housestaff ---
Subjective Follow-up For: LLQ cellulitis/abscess Tele-Events Since Last Visit: No overnight events, heart rate 82, Subjective: Patient was seen and examined at bedside, continues to complain of mild left lower quadrant abdominal pain only when moving, denies any fever, chills, nausea , vomiting or any other complaints. IV heparin drip on hold for bedside I&D Review of Systems Constitutional: Reports: see HPI. Cardiovascular: Denies: no symptoms. Respiratory: Denies: no symptoms. Gastrointestinal: Denies: no symptoms. Genitourinary: Denies: no symptoms. Musculoskeletal: Denies: no symptoms. Objective Last 24 Hrs of Vital Signs/I&O Vital Signs Date Time Temp Pulse Resp B/P B/P Pulse O2 O2 Flow FiO2 Mean Ox Delivery Rate 10/15 0848 61 122/59 10/15 0842 61 122/59 10/15 0613 97.7 61 20 122/59 98 CPAP 10/15 0020 78 93 10/14 2136 97.6 81 20 126/70 99 Room Air 10/14 2000 81 122/64 10/14 2000 81 122/64 10/14 1856 98.2 82 20 120/62 99 Nasal 2.0L Cannula 10/14 1438 98.6 88 18 114/58 96 Room Air Intake & Output 10/15 1600 10/15 0800 10/15 0000 Intake Total 282 594 Output Total Balance 282 594 Intake, IV 232 354 Intake, Oral 50 240 Number 1 0 Bowel Movements Physical Exam General Appearance: Alert, Oriented X3, Cooperative, No Acute Distress HEENT: Atraumatic, PERRLA Cardiovascular: Normal S1, Normal S2, No Murmurs Lungs: Clear to Auscultation Abdomen: Normal Bowel Sounds, Soft, No Tenderness, 5X5 indurated bluish tender mass in the left lower quadrant Neurological: Normal Speech Extremities: No Clubbing, No Cyanosis, No Edema Assessment/Plan Assessment: 81 year old man with PMHx of CLL, lung cancer, recent left abdominal hernia repair (04/2017), right lower extremity cellulitis, and mechanical aortic valve on Coumadin was sent in by his PCP for evalution of left lower abdominal swelling, redness, with occasional drainage without fever. Patient was prescribed Bactrim which he took for 4 days prior to admission admitted for management of left lower quadrant cellulitis and abscess concerning for MRSA. #Left lower quadrant purulent abdominal wall cellulitis/abscess: Patient was scheduled to go for incision and drainage yesterday however in the OR he was found to have SVT, he was given adenosine 6 mg and he quickly converted to normal sinus rhythm. Patient was then started on IV heparin drip. This morning the heparin was discontinued, he had bedside I&D, with drainage of significant amount, culture were sent. His heparin drip will be restarted and 2 hours after the procedure, aspirin will be restarted tomorrow History of MRSA cellulitis Leukocytosis increasing to 29.6 (on vancomycin and chronic steroids for CLL) Continue vancomycin 1g IV daily Outpatient antibiotic failure with bactrim 1.2cm abscess but was determined to be too small for IR drainage Plan for bedside I+D with general surgery and culture after INR <2.5 Blood cultures NGTD * Follow-up on I&D culture Check UA and culture Follow up infectious disease and surgery recommendations [place] Mechanical valve with supratherapeutic INR: possibly related to recent course of bactrim Coumadin on hold, should be on aspirin also (not on med list) Given 10mg po vitamin K yesterday INR 1.19 this morning, will start IV heparin after 2 hours of 90 CLL: on prednisone 10mg daily History of lacunar infaract Continue statin, should be on aspirin NAEEM Nocturnal CPAP GERD PO PPI BPH Continue finasteride and flomax Heart Healthy diet DVT ppx-on coumadin, and intravenous heparin as INR subtherapeutic Full code Problem List: 1. Cellulitis and abscess of trunk Pain Ratin Pain Location: N/A Pain Goal: Remain pain free Pain Plan: pathway Tomorrow's Labs & Rationales: cbc bep
--- NOTE | 2017-10-15 07:33 | PN- General Surgery ---
Surgical Brief Attending Note Brief Attending Note: GIVEN EVENTS YESTERDAY, WILL DRAIN AT BEDSIDE TODAY. PLEASE STOP HEPARIN NOW.
[2017-10-15 08:07] LABS: ABSOLUTE BASOPHIL COUNT 0.1 /CUMM (0.0-0.2); ABSOLUTE EOSINOPHIL COUNT 0.1 /CUMM (0.0-0.7); ABSOLUTE GRANULOCYTE CT 11.6 /CUMM (1.4-6.5); ABSOLUTE LYMPH COUNT 17.4 /CUMM (1.2-3.4); ABSOLUTE MONOCYTE COUNT 0.5 /CUMM (0.10-0.60); BASOPHIL % 0.2 % (0.0-2.0); EOSINOPHIL % 0.4 % (0-5); GRANULOCYTE % 39.1 % (42.2-75.2); MEAN CORPUSCULAR HGB CONC 32.1 G/DL (33.0-37.0); MEAN CORPUSCULAR VOLUME 77.9 FL (80.0-94.0); MEAN PLATELET VOLUME 9.6 FL (7.4-10.4); PLATELET COUNT 293 /CUMM (130-400); RED BLOOD CELL CT 3.72 /CUMM (4.70-6.10); WHITE BLOOD CELL COUNT 29.6 /CUMM (4.8-10.8)
[2017-10-15 08:24] LABS: PT 12.6 SEC (9.4-12.5)
[2017-10-15 09:02] LABS: PTT 106 SEC (25-37)
--- NOTE | 2017-10-15 11:28 | PN- Infect Dx ---
Subjective Subjective: Afebrile without complaints Objective Last 24 Hrs of Vital Signs/I&O Vital Signs Date Time Temp Pulse Resp B/P B/P Pulse O2 O2 Flow FiO2 Mean Ox Delivery Rate 10/15 0848 61 122/59 10/15 0842 61 122/59 10/15 0613 97.7 61 20 122/59 98 CPAP 10/15 0020 78 93 10/14 2136 97.6 81 20 126/70 99 Room Air 10/14 2000 81 122/64 10/14 2000 81 122/64 10/14 1856 98.2 82 20 120/62 99 Nasal 2.0L Cannula 10/14 1438 98.6 88 18 114/58 96 Room Air Intake & Output 10/15 1600 10/15 0800 10/15 0000 Intake Total 282 594 Output Total Balance 282 594 Intake, IV 232 354 Intake, Oral 50 240 Number 1 0 Bowel Movements Physical Exam Other Physical Findings: He appears comfortable in no acute distress Abdomen left lower quadrant abdominal wall localized induration and erythema, unchanged from yesterday, mildly tender on palpation Results Last 24 Hours of Lab Results: Laboratory Tests 10/15 10/15 10/15 0820 0606 0030 Chemistry Troponin I (<0.11 ng/ml) 1.34 *H 1.63 *H Coagulation PT (9.4 - 12.5 SEC) 12.6 H INR (0.90 - 1.17) 1.15 APTT (25 - 37 SEC) 106 *H 52 H Hematology CBC w Diff MAN DIFF ORDERED WBC (4.8 - 10.8 /CUMM) 29.6 H RBC (4.70 - 6.10 /CUMM) 3.72 L Hgb (14.0 - 18.0 G/DL) 9.3 L Hct (42 - 52 %) 29.0 L MCV (80.0 - 94.0 FL) 77.9 L MCH (27.0 - 31.0 PG) 25.0 L MCHC (33.0 - 37.0 G/DL) 32.1 L RDW (11.5 - 14.5 %) 19.0 H Plt Count (130 - 400 /CUMM) 293 MPV (7.4 - 10.4 FL) 9.6 Gran % (42.2 - 75.2 %) 39.1 L Lymphocytes % (20.5 - 51.1 %) 58.7 H Monocytes % (1.7 - 9.3 %) 1.6 L Eosinophils % (0 - 5 %) 0.4 Basophils % (0.0 - 2.0 %) 0.2 Absolute Granulocytes (1.4 - 6.5 /CUMM) 11.6 H Segmented Neutrophils (42.2 - 75.2 %) 43 Band Neutrophils (0.0 - 5.0 %) 1 Absolute Lymphocytes (1.2 - 3.4 /CUMM) 17.4 H Lymphocytes (20.5 - 51.1 %) 49 Monocytes (1.7 - 9.3 %) 2 Absolute Monocytes (0.10 - 0.60 /CUMM) 0.5 Eosinophils (0 - 5.0 %) 3 Absolute Eosinophils (0.0 - 0.7 /CUMM) 0.1 Absolute Basophils (0.0 - 0.2 /CUMM) 0.1 Metamyelocytes (0.0 - 1.0 %) 2 H Platelet Estimate (ADEQUATE) ADEQUATE Anisocytosis 1+ / 1800 Chemistry Troponin I (<0.11 ng/ml) 0.43 *H Last 24 Hours of Pavel Results: Blood cultures October 12 negative Urine culture October 13 negative Assessment/Plan ID Impression: Stable, with temperatures remaining normal (on steroids) and white blood cell count elevated, presumably secondary to his CLL, on Vancomycin Day 3 of treatment for a left lower quadrant quadrant abdominal wall infection/abscess, presumably secondary to MRSA, with plans for drainage at the bedside later today. Suggestion: 1. Await I&D at the bedside later today 2. Continue Vancomycin pending above
--- NOTE | 2017-10-15 11:52 | PN- Cardiology ---
Subjective Subjective: The patient was noted to have an episode of SVT with associated hypotension yesterday evening. He was treated with IV fluid followed by adenosine, with conversion to sinus rhythm. He has remained in sinus rhythm since that time. No chest pain. No shortness of breath. No palpitations. No diaphoresis. No nausea or vomiting Objective Vital Signs and I&Os Vital Signs Date Time Temp Pulse Resp B/P B/P Pulse O2 O2 Flow FiO2 Mean Ox Delivery Rate 10/15 0848 61 122/59 10/15 0842 61 122/59 10/15 0613 97.7 61 20 122/59 98 CPAP 10/15 0020 78 93 10/14 2136 97.6 81 20 126/70 99 Room Air 10/14 2000 81 122/64 10/14 2000 81 122/64 10/14 1856 98.2 82 20 120/62 99 Nasal 2.0L Cannula 10/14 1438 98.6 88 18 114/58 96 Room Air Intake & Output 10/15 1600 10/15 0800 10/15 0000 10/14 1600 10/14 0800 10/14 0000 Intake Total 282 594 15 200 400 Output Total 350 600 Balance 282 594 -335 -400 400 Intake, IV 232 354 300 Intake, Oral 50 240 15 200 100 Number 1 0 Bowel Movements Output, Urine 350 600 Patient 169 lb Weight Physical Exam: Gen: NAD HEENT: normal Lungs: clear to auscultation, normal resp. effort Heart: RRR, conchal aortic valve sounds, 1/6 systolic murmur Abdomen: Soft, nontender, no masses Extremities: No clubbing, cyanosis, or edema. Neuro: Alert and oriented x 3, cranial nerves intact Current Medications: Current Medications Sig/Kobe Start time Last Medication Dose Route Stop Time Status Admin Acetaminophen 650 MG .STK-MED ONE 10/15 0258 DC PO 10/15 025 Acetaminophen 1,000 MG .STK-MED ONE 10/14 2056 DC PO 10/14 2057 Acetaminophen 1,000 MG .STK-MED ONE 10/14 1615 DC IV 10/14 161 Acetaminophen 650 MG Q6P PRN 10/12 1545 AC 10/15 PO 0301 Diphenhydramine HCl 25 MG .STK-MED ONE 10/14 1910 DC PO 10/14 191 Diphenhydramine HCl 25 MG DAILY NEEDED PRN 10/12 1845 AC 10/14 PO 1912 Fentanyl Citrate 200 MCG .STK-MED ONE 10/14 1615 DC IM 10/14 1616 Finasteride 5 MG DAILY 10/12 1646 AC 10/15 PO 0841 Folic Acid 1 MG DAILY 10/12 1646 AC 10/15 PO 0841 Heparin Sodium 25,000 UNIT Q24H 10/14 1145 DC (Porcine) IV Sodium Chloride 500 ML Heparin Sodium/ 25,000 UNIT Q24H 10/14 1745 DC 10/14 Dextrose IV 1900 Dextrose/Water 500 ML Hydroxyzine HCl 25 MG BID PRN 10/12 1845 AC PO Metoprolol Tartrate 12.5 MG BID 10/14 2100 AC 10/15 PO 0848 Metoprolol Tartrate 25 MG .STK-MED ONE 10/14 1947 DC PO 10/14 1948 Midazolam HCl 2 MG .STK-MED ONE 10/14 1721 DC IM 10/14 1722 Omeprazole 40 MG DAILY AC 10/13 0700 AC 10/15 PO 0612 Pravastatin Sodium 20 MG 1700 10/12 1700 AC 10/14 PO 1908 Prednisone 10 MG DAILY 10/12 1647 AC 10/15 PO 0841 Sodium Chloride 500 ML BOLUS ONE 10/14 1830 DC 10/14 IV 10/14 1929 1912 Tamsulosin HCl 0.4 MG BID 10/12 2100 AC 10/15 PO 0842 Vancomycin HCl 1,000 MG Q24H 10/12 1800 AC 10/14 Sodium Chloride 250 ML IV 2002 Results Last 48 Hrs of Labs/Mics: Laboratory Tests 10/15/17 0820: APTT 106 *H 10/15/17 0606: Troponin I 1.34 *H, PT 12.6 H, INR 1.15, CBC w Diff MAN DIFF ORDERED, RBC 3.72 L, MCV 77.9 L, MCH 25.0 L, MCHC 32.1 L, RDW 19.0 H, MPV 9.6, Gran % 39.1 L, Lymphocytes % 58.7 H, Monocytes % 1.6 L, Eosinophils % 0.4, Basophils % 0.2, Absolute Granulocytes 11.6 H, Segmented Neutrophils 43, Band Neutrophils 1, Absolute Lymphocytes 17.4 H, Lymphocytes 49, Monocytes 2, Absolute Monocytes 0.5, Eosinophils 3, Absolute Eosinophils 0.1, Absolute Basophils 0.1, Metamyelocytes 2 H, Platelet Estimate ADEQUATE, Anisocytosis 1+ 10/15/17 0030: Troponin I 1.63 *H, APTT 52 H 10/14/17 1800: Troponin I 0.43 *H 10/14/17 0722: CBC w Diff MAN DIFF ORDERED, RBC 3.86 L, MCV 77.4 L, MCH 25.5 L, MCHC 33.0, RDW 19.3 H, MPV 9.0, Gran % 35.8 L, Lymphocytes % 61.7 H, Monocytes % 2.0, Eosinophils % 0.4, Basophils % 0.1, Absolute Granulocytes 9.0 H, Segmented Neutrophils 32 L, Absolute Lymphocytes 15.4 H, Lymphocytes 63 H, Monocytes 4, Absolute Monocytes 0.5, Eosinophils 1, Absolute Eosinophils 0.1, Absolute Basophils 0, Platelet Estimate ADEQUATE, Hypochromic-Microcytic 1+, Poikilocytosis 1+, Anisocytosis 2+, Microcytic Cells 1+, Ovalocytes 1+ 10/14/17 0615: PT 13.0 H, INR 1.19 H 10/13/17 1510: Urine Color YEL, Urine Clarity HAZY H, Urine pH 6.0, Ur Specific [place] <= 1.005, Urine Protein NEG, Urine Ketones NEG, Urine Nitrite NEG, Urine Bilirubin NEG, Urine Urobilinogen 0.2, Ur Leukocyte Esterase NEG, Ur Microscopic SEDIMENT EXAMINED, Micro UA Comment NEGATIVE MICROSCOPIC, Urine Hemoglobin SMALL H, Urine Glucose NEG Microbiology 10/13 1510 URINE ROUT: Urine Culture - COMP Assessment/Plan Assessment/Plan Assessment: 1. [facility] mechanical aortic valve on warfarin therapy 2. Left lower quadrant abdominal wall purulent cellulitis with abscess 3. CLL on prednisone 4. History of lung cancer status post right lower lobectomy 5. History of MRSA cellulitis 6. History of endocarditis 7. GERD 8. hyperlipidemia 9. Paroxysmal SVT, currently in sinus rhythm 10. Positive troponin, likely type II NE Plan: * Continue metoprolol * IV heparin placed on hold in preparation for drainage of abscess. Would restart as soon as possible after procedure * Continue to monitor on telemetry * Given the positive troponin, would start low-dose aspirin if possible after the procedure today. Continue telemetry? Yes
--- NOTE | 2017-10-15 12:21 | PN- Att Addend ---
Attending Addendum Attending Brief Note Events from yesterday afternoon noted. Patient now on telemetry heart rate is improved patient was on a heparin drip until this morning, patient nothing by mouth. Dr. Bustamante is going to come to the bedside to the procedure. White count is a little higher to be the area on the skin looks a little smaller continue treatment as per recommendations from infectious diseases and cardiology. Intake & Output 10/15 1600 10/15 0400 10/14 1600 10/14 0400 10/13 1600 10/13 0400 Intake Total 282 594 215 400 600 490 Output Total 950 1500 Balance 282 594 -735 400 -900 490 Intake, IV 232 354 300 250 Intake, Oral 50 240 215 100 600 240 Number 1 0 2 Bowel Movements Output, Urine 950 1500 Patient 169 lb 169 lb Weight Weight Reported by Patient Measurement Method Current Medications Sig/Kobe Start time Last Medication Dose Route Stop Time Status Admin Acetaminophen 650 MG .STK-MED ONE 10/15 0258 DC PO 10/15 025 Acetaminophen 1,000 MG .STK-MED ONE 10/14 2056 DC PO 10/14 2057 Acetaminophen 1,000 MG .STK-MED ONE 10/14 1615 DC IV 10/14 161 Acetaminophen 650 MG Q6P PRN 10/12 1545 AC 10/15 PO 0301 Diphenhydramine HCl 25 MG .STK-MED ONE 10/14 1910 DC PO 10/14 191 Diphenhydramine HCl 25 MG DAILY NEEDED PRN 10/12 1845 AC 10/14 PO 1912 Fentanyl Citrate 200 MCG .STK-MED ONE 10/14 1615 DC IM 10/14 1616 Finasteride 5 MG DAILY 10/12 1646 AC 10/15 PO 0841 Folic Acid 1 MG DAILY 10/12 1646 AC 10/15 PO 0841 Heparin Sodium/ 25,000 UNIT Q24H 10/14 1745 DC 10/14 Dextrose IV 1900 Dextrose/Water 500 ML Hydroxyzine HCl 25 MG BID PRN 10/12 1845 PO Metoprolol Tartrate 12.5 MG BID 10/14 2100 AC 10/15 PO 0848 Metoprolol Tartrate 25 MG .STK-MED ONE 10/14 194 DC PO 10/14 194 Midazolam HCl 2 MG .STK-MED ONE 10/14 1721 DC IM 10/14 172 Omeprazole 40 MG DAILY AC 10/13 0700 AC 10/15 PO 0612 Pravastatin Sodium 20 MG 1700 10/12 1700 AC 10/14 PO 1908 Prednisone 10 MG DAILY 10/12 1647 AC 10/15 PO 0841 Sodium Chloride 500 ML BOLUS ONE 10/14 1830 DC 10/14 IV 10/14 1928 191 Tamsulosin HCl 0.4 MG BID 10/12 2100 AC 10/15 PO 0842 Vancomycin HCl 1,000 MG Q24H 10/12 1800 AC 10/14 Sodium Chloride 250 ML IV 2001 Laboratory Tests 10/15/17 0820: APTT 106 *H 10/15/17 0606: Troponin I 1.34 *H, PT 12.6 H, INR 1.15, CBC w Diff MAN DIFF ORDERED, RBC 3.72 L, MCV 77.9 L, MCH 25.0 L, MCHC 32.1 L, RDW 19.0 H, MPV 9.6, Gran % 39.1 L, Lymphocytes % 58.7 H, Monocytes % 1.6 L, Eosinophils % 0.4, Basophils % 0.2, Absolute Granulocytes 11.6 H, Segmented Neutrophils 43, Band Neutrophils 1, Absolute Lymphocytes 17.4 H, Lymphocytes 49, Monocytes 2, Absolute Monocytes 0.5, Eosinophils 3, Absolute Eosinophils 0.1, Absolute Basophils 0.1, Metamyelocytes 2 H, Platelet Estimate ADEQUATE, Anisocytosis 1+ 10/15/17 0030: Troponin I 1.63 *H, APTT 52 H 10/14/17 1800: Troponin I 0.43 *H 10/14/17 0722: CBC w Diff MAN DIFF ORDERED, RBC 3.86 L, MCV 77.4 L, MCH 25.5 L, MCHC 33.0, RDW 19.3 H, MPV 9.0, Gran % 35.8 L, Lymphocytes % 61.7 H, Monocytes % 2.0, Eosinophils % 0.4, Basophils % 0.1, Absolute Granulocytes 9.0 H, Segmented Neutrophils 32 L, Absolute Lymphocytes 15.4 H, Lymphocytes 63 H, Monocytes 4, Absolute Monocytes 0.5, Eosinophils 1, Absolute Eosinophils 0.1, Absolute Basophils 0, Platelet Estimate ADEQUATE, Hypochromic-Microcytic 1+, Poikilocytosis 1+, Anisocytosis 2+, Microcytic Cells 1+, Ovalocytes 1+ 10/14/17 0615: PT 13.0 H, INR 1.19 H 10/13/17 1510: Urine Color YEL, Urine Clarity HAZY H, Urine pH 6.0, Ur Specific Lawrence <= 1.005, Urine Protein NEG, Urine Ketones NEG, Urine Nitrite NEG, Urine Bilirubin NEG, Urine Urobilinogen 0.2, Ur Leukocyte Esterase NEG, Ur Microscopic SEDIMENT EXAMINED, Micro UA Comment NEGATIVE MICROSCOPIC, Urine Hemoglobin SMALL H, Urine Glucose NEG 10/13/17 0525: Anion Gap 9, Estimated GFR > 60, BUN/Creatinine Ratio 15.5, PT 51.2 *H, INR 4.63 *H, CBC w Diff MAN DIFF ORDERED, RBC 3.83 L, MCV 77.5 L, MCH 25.1 L, MCHC 32.3 L, RDW 20.1 H, MPV 10.1, Gran % 44.2, Lymphocytes % 52.3 H, Monocytes % 3.2, Eosinophils % 0.1, Basophils % 0.2, Absolute Granulocytes 10.2 H, Segmented Neutrophils 46, Band Neutrophils 2, Absolute Lymphocytes 12.0 H, Lymphocytes 51, Monocytes 1 L, Absolute Monocytes 0.7 H, Absolute Eosinophils 0, Absolute Basophils 0.1, Platelet Estimate ADEQUATE, Hypochromic-Microcytic 1+ , Poikilocytosis FEW, Anisocytosis 2+, Microcytic Cells 1+, Ovalocytes 1+, Magdy Cells FEW, Fld Total RBCs Counted 100 10/12/17 1515: Lactic Acid Cancelled 10/12/17 1401: PT 53.9 *H, INR 4.87 *H 10/12/17 1226: Lactic Acid 0.6 L, CBC w Diff MAN DIFF ORDERED, RBC 3.86 L, MCV 77.7 L, MCH 25.1 L, MCHC 32.3 L, RDW 19.6 H, MPV 8.9, Gran % 43.7, Lymphocytes % 52.3 H, Monocytes % 3.3, Eosinophils % 0.3, Basophils % 0.4, Absolute Granulocytes 9.7 H, Absolute Lymphocytes 11.6 H, Absolute Monocytes 0.7 H, Absolute Eosinophils 0.1, Absolute Basophils 0.1, Platelet Estimate VERIFIED BY SMEAR, Polychromasia 1+, Hypochromic-Microcytic 1+, Poikilocytosis 1+, Anisocytosis 1+, Microcytic Cells 1+, Ovalocytes 1+, Magdy Cells 1+ Microbiology 10/13 1509 URINE ROUT: Urine Culture - COMP 10/12 140 BLOOD: Blood Culture - RES Microbiology 10/13 1509 URINE ROUT: Urine Culture - COMP 10/12 1400 BLOOD: Blood Culture - RES Vital Signs Date Time Temp Pulse Resp B/P B/P Pulse O2 O2 Flow FiO2 Mean Ox Delivery Rate 10/15 0848 61 122/59 10/15 0842 61 122/59 10/15 0613 97.7 61 20 122/59 98 CPAP 10/15 0020 78 93 10/14 2136 97.6 81 20 126/70 99 Room Air 10/14 2000 81 122/64 10/14 2000 81 122/64 10/14 1856 98.2 82 20 120/62 99 Nasal 2.0L Cannula 10/14 1438 98.6 88 18 114/58 96 Room Air
--- NOTE | 2017-10-15 12:44 | ECHOCARDIOGRAM REPORT ---
BOO STEVENS Age: 81 : 1935 Gender: M Exam Date: 10/15/2017 11:10 Exam Location: 1 [address] Ht (in): 65 Wt (lb): 169 BSA: 1.89 BP: 122 / 59 Ordering Physician: Cinthia Santamaria MD Referring Physician: Cinthia Santamaria MD Technologist: Thang Garcia [facility] Room Number: [id number] Indications: SVT Rhythm: Sinus Technical Quality: Fair FINDINGS Left Ventricle Normal size left ventricle. No obvious regional wall motion abnormalities. Left ventricular wall thickness mildly increased. Normal left ventricular ejection fraction estimated at 55-60%. Abnormal septal motion. Right Ventricle Right ventricle not well visualized, grossly normal. Right Atrium Normal right atrial size. Left Atrium Left atrial size at the upper limits of normal. Mitral Valve Mitral valve thickened. Mitral annular calcification. Trace to mild mitral regurgitation. Aortic Valve Normally functioning prosthetic aortic valve. Mechanical prosthetic aortic valve. Trace aortic regurgitation. Tricuspid Valve Tricuspid valve not well visualized, grossly normal. Trace tricuspid regurgitation. Pulmonic Valve Pulmonic valve not well visualized, grossly normal. Pericardium No pericardial effusion. Great Vessels Aortic root and proximal ascending aorta not well visualized, grossly normal. CONCLUSIONS 1. A normally functioning metallo prosthetic aortic valve is present ([facility]; size unknown) with minimal aortic insufficiency noted. The peak gradient across the valve is 32 mmHg. 2. Minimal thickening of the mitral leaflets is present with minimal anular calcification and minimal mitral insufficiency 3. There is no pericardial fluid detected 4. The left ventricular chamber size is minimally enlarged with mild LVH and a normal ejection fraction. There are no significant resting wall motion abnormalities. Abnormal septal motion is present. 5. The right heart structures are grossly normal. Minimal tricuspid insufficiency is present but the RV systolic pressure was not accurately assessed. 6. Lipomatous atrial septal hypertrophy is present. Femi Brower M.D. (Electronically Signed) Final Date: 15 October 2017 12:43 MEASUREMENTS (Male / Female) Normal Values 2D ECHO LV Diastolic Diameter PLAX 5.7 cm 4.2 - 5.9 / 3.9 - 5.3 cm LV Systolic Diameter PLAX 3.6 cm 2.1 - 4.0 cm LV Fractional Shortening PLAX 36.8 % 25 - 46 % LV Ejection Fraction 2D Teich 66.0 % IVS Diastolic Thickness 1.2 cm LVPW Diastolic Thickness 1.2 cm LV Relative Wall Thickness 0.4 RV Internal Dim ED PLAX 3.9 cm 1.9 - 3.8 cm LVOT Diameter 1.9 cm Aortic Root Diameter 2.5 cm LA Systolic Diameter LX 3.3 cm 3.0 - 4.0 / 2.7 - 3.8 cm Ascending Aorta Diameter 3.3 cm DOPPLER AV Peak Velocity 305.0 cm/s AV Peak Gradient 37.2 mmHg AV Mean Velocity 187.0 cm/s AV Mean Gradient 17.0 mmHg AV Velocity Time Integral 66.5 cm LVOT Peak Velocity 79.7 cm/s LVOT Peak Gradient 2.5 mmHg LVOT Mean Velocity 51.1 cm/s LVOT Mean Gradient 1.0 mmHg LVOT Velocity Time Integral 18.7 cm LVOT Stroke Volume 53.0 cm MV Peak Velocity 88.2 cm/s MV Peak Gradient 3.1 mmHg MV Mean Velocity 56.0 cm/s MV Mean Gradient 1.0 mmHg Mitral E Point Velocity 70.1 cm/s Mitral A Point Velocity 98.2 cm/s Mitral E to A Ratio 0.7 MV PHT Velocity 97.7 cm/s MV Deceleration Moore 473.0 cm/s MV Pressure Half Time 62.0 ms MV Area PHT 3.6 cm MV Deceleration Time 218.0 ms LV E' Lateral Velocity 9.7 cm/s Mitral E to LV E' Lateral Ratio 7.3 LV E' Septal Velocity 6.5 cm/s Mitral E to LV E' Septal Ratio 10.8
[2017-10-15 14:37] VITALS: BP 118/74
--- NOTE | 2017-10-15 15:06 | Procedure ---
Minor Surgical Procedure Note Date of Procedure: 10/15/17 Procedure Note: after prepping and draping left abdominal wall skin, the area was anesthetized with 8ml 1% lidocaine with epinephrine. Incision was made. Copious purulence was expressed. There was large cavity extending to lateral area of erythema. A counter incision was made to aid in drainage. specimen obtained for culture. Packed with 1" [place]. Patient tolerated procedure well.
[2017-10-15 22:18] LABS: PTT 81 SEC (25-37)
[2017-10-15 22:43] VITALS: BP 134/64
[2017-10-16 06:33] VITALS: BP 132/70
--- NOTE | 2017-10-16 07:08 | PN- Housestaff ---
Subjective Follow-up For: LLQ cellulitis/abscess Tele-Events Since Last Visit: No overnight events, heart rate 66, normal intervals Subjective: Patient was seen and examined at bedside, afebrile ,he denies any complaints, bedside I&D was done yesterday, dressing in place, soiled with pus. Culture sensitivity was sent, still pending Review of Systems Constitutional: Denies: no symptoms. Objective Last 24 Hrs of Vital Signs/I&O Vital Signs Date Time Temp Pulse Resp B/P B/P Pulse O2 O2 Flow FiO2 Mean Ox Delivery Rate 10/16 0633 98.0 72 20 132/70 95 Room Air / 0000 CPAP 10/15 2243 98.4 68 20 134/64 95 Room Air 10/15 2212 78 95 10/15 2121 83 136/64 10/15 2120 85 136/64 10/15 1437 98.1 67 20 118/74 94 Room Air Intake & Output 10/16 1600 /08 0800 06/08 0000 Intake Total 328 750 Output Total Balance 328 750 Intake, IV 208 400 Intake, Oral 120 350 Number 0 0 Bowel Movements Patient 169 lb Weight Weight Bed scale Measurement Method Physical Exam General Appearance: Alert, Oriented X3, Cooperative, No Acute Distress HEENT: Atraumatic, PERRLA, EOMI, Mucous Membr. moist/pink Neck: Supple, No JVD Cardiovascular: Normal S1, Normal S2 Lungs: Clear to Auscultation Abdomen: Normal Bowel Sounds, Soft, LLQ is covered by soiled surgocal dressinig Assessment/Plan Assessment: 81 year old man with PMHx of CLL, lung cancer, recent left abdominal hernia repair (04/2017), right lower extremity cellulitis, and mechanical aortic valve on Coumadin was sent in by his PCP for evalution of left lower abdominal swelling, redness, with occasional drainage without fever. Patient was prescribed Bactrim which he took for 4 days prior to admission admitted for management of left lower quadrant cellulitis and abscess concerning for MRSA. #Left lower quadrant purulent abdominal wall cellulitis/abscess: abd wounds draining sig amount of pus , surgical PA changed the dressing and aspirin will be restarted tomorrow History of MRSA cellulitis Leukocytosis increasing to 29.6 (on vancomycin and chronic steroids for CLL) Continue vancomycin 1g IV daily Outpatient antibiotic failure with bactrim 1.2cm abscess but was determined to be too small for IR drainage Plan for bedside I+D with general surgery and culture after INR <2.5 Blood cultures NGTD * Follow-up on I&D culture Check UA and culture Follow up infectious disease and surgery recommendations [facility] Mechanical valve with supratherapeutic INR: possibly related to recent course of bactrim Coumadin on hold, should be on aspirin also (not on med list) Given 10mg po vitamin K yesterday INR 1.19 this morning, will start IV heparin after 2 hours of 90 CLL: on prednisone 10mg daily History of lacunar infaract Continue statin, should be on aspirin NAEEM Nocturnal CPAP GERD PO PPI BPH Continue finasteride and flomax Heart Healthy diet DVT ppx-on coumadin, and intravenous heparin as INR subtherapeutic Full code Problem List: 1. Cellulitis and abscess of trunk Pain Ratin Pain Location: N/A Pain Goal: Remain pain free Pain Plan: Pathway Tomorrow's Labs & Rationales: CBC BEP
[2017-10-16 07:29] LABS: ABSOLUTE BASOPHIL COUNT 0.1 /CUMM (0.0-0.2); ABSOLUTE EOSINOPHIL COUNT 0.1 /CUMM (0.0-0.7); ABSOLUTE GRANULOCYTE CT 8.8 /CUMM (1.4-6.5); ABSOLUTE LYMPH COUNT 18.1 /CUMM (1.2-3.4); ABSOLUTE MONOCYTE COUNT 0.8 /CUMM (0.10-0.60); BASOPHIL % 0.3 % (0.0-2.0); EOSINOPHIL % 0.3 % (0-5); GRANULOCYTE % 31.6 % (42.2-75.2); HEMATOCRIT 29.4 % (42-52); MEAN CORPUSCULAR HGB 25.1 PG (27.0-31.0); MEAN CORPUSCULAR HGB CONC 31.9 G/DL (33.0-37.0); MEAN CORPUSCULAR VOLUME 78.5 FL (80.0-94.0); MEAN PLATELET VOLUME 9.4 FL (7.4-10.4); PLATELET COUNT 297 /CUMM (130-400); RBC DISTRIBUTION WIDTH 19.1 % (11.5-14.5); RED BLOOD CELL CT 3.74 /CUMM (4.70-6.10); WHITE BLOOD CELL COUNT 27.7 /CUMM (4.8-10.8)
--- NOTE | 2017-10-16 07:50 | Discharge Summary ---
Visit Information Visit Dates Admission Date: 10/12/17 Discharge Date: 10/20/17 Hospital Course Course Attending Physician: Chin Freeman MD Primary Care Physician: Pete BAUHG,Chin Hospital Course: 81 year old male with past medical history significant for CLL on chronic prednisone therapy 10mg, NAEEM, [facility] [place] mechanical aortic valve on Coumadin, h/o endocarditis (1991), lung cancer s/p RLL resection (2009), h/o lacunar CVA, h/o hernia repair with mesh and SBO, and h/o abdominal MRSA infection (2015) presented with worsening left lower abdominal infection. The patient was treated with Bactrim as an outpatient but the cellulitis worsened with areas of fluctuance and drainage. He was admitted to [facility] and started on Vancomycin because of his history of MRSA infection after infectious disease consultation. The patient was afebrile and his labs were notable for leukocytosis and negative lactic acidemia. Surgery was consulted to drain the abscess and obtain cultures to provide antimicrobial therapy. Patient's coumadin was held. Vitamin K was given for supratherapeutic INR. Patient went down to the operating room and was found to be in supraventricular tachycardia with hypotension preoperatively. The surgical case was cancelled, SVT was broken with adenosine. Patient was transferred to telemetry and started on intravenous heparin while INR was subtherapeutic for his mechanical valve. The patient had a type II NSTEMI with positive troponins in the setting of a tachyarrhythmia. Cardiology was consulted and the patient was started on beta león and aspirin. On 10/15/17 patient had bedside incision and drainage performed by general surgery. He was continued on vancomycin, and his wound was packed with surgical gauze and daily dressing changes. Infectious disease was consulted and recommended changing the patient from vancomycin to bactrim on discharge. The patient underwent the procedure without complication and adequate drainage of purulent material from the abscess with improved cellulitis and remained afebrile. His white cell count was consistently high in the 30,000 range which was attributed to his underlying CLL , without fever or any other signs of active or worsening infection. The patient was bridged with heparin perioperatively, until his INR became therapeutic after resumption of coumadin. The patient was then discharged on one week of Bactrim for a total fourteen day course and instructed to follow up with general surgery for wound check and cardiology for supraventricular tachycardia. Allergies: Coded Allergies: Penicillins (UNKNOWN PER PT A KID 11/10/15) guaifenesin (From ROBITUSSIN) (Mild, "AFFECT MY PROSTATE" 11/10/15) Significant Procedures: Transthoracic Echocardiogram 10/15/17 CONCLUSIONS 1. A normally functioning metallo prosthetic aortic valve is present ([facility]; size unknown) with minimal aortic insufficiency noted. The peak gradient across the valve is 32 mmHg. 2. Minimal thickening of the mitral leaflets is present with minimal anular calcification and minimal mitral insufficiency 3. There is no pericardial fluid detected 4. The left ventricular chamber size is minimally enlarged with mild LVH and a normal ejection fraction. There are no significant resting wall motion abnormalities. Abnormal septal motion is present. 5. The right heart structures are grossly normal. Minimal tricuspid insufficiency is present but the RV systolic pressure was not accurately assessed. 6. Lipomatous atrial septal hypertrophy is present Abdominal ultrasound 10/12/17 FINDINGS: Corresponding to the superficial erythema and induration, there is diffuse skin thickening in the left lateral abdominal wall at the level of the umbilicus with the skin thickening measuring up to approximately 0.5 cm in thickness. There is prominent underlying soft tissue edema and inflammatory change seen extending throughout the thickness of the subcutaneous tissues, abutting the anterior abdominal wall musculature, but not extending beyond the musculature. Findings are consistent with cutaneous and deep cutaneous cellulitis and phlegmonous changes. There is a small approximately 1.2 x 1.1 x 1.1 cm area of more focal complex fluid collection seen in the deeper subcutaneous tissues, suspicious for an evolving abscess. With color Doppler imaging, no significant hyperemia is seen in the involved area. IMPRESSION: Extensive cutaneous and deep subcutaneous soft tissue edema and inflammation is seen in the left mid abdomen at the level of the umbilicus, consistent with cutaneous cellulitis and subcutaneous panniculitis. A small 1.2 cm evolving abscess collection is suspected within the deep subcutaneous tissues. Disposition Summary Disposition Principal Diagnosis: Left lower abdominal MRSA abscess and cellulitis Supraventricular tachycardia Type II NSTEMI in the setting of a tachyarrhythmia Mechanical aortic valve on coumadin Additional Diagnosis: [facility] Mechanical valve on coumadin Supratherapeutic INR NAEEM on CPAP CLL on chronic prednisone BPH History of lung cancer s/p RLL lung resection History of lacunar infarct CVA History of MRSA cellulitis Discharge Disposition: home or self care Discharge Instructions General Discharge Information Code Status: Full Code Patient's Diet: Heart healthy Patient's Activity: As tolerated Follow-Up Instructions/Appts: -Please follow-up with your primary care physician within 1 week after discharge -Please follow-up with your psychometrician at [facility] within 1 week after discharge, recommendation for further testing for supraventricular tachycardia that developed during her hospital stay -Please take antibiotic as prescribed Medications at Discharge Discharge Medications: Stop taking the following medications: Sulfamethoxazole/Trimethoprim (Sulfamethoxazole-Tmp Ds Tablet) 800 MG-160 MG TABLET ORAL TWICE DAILY Qty = 20 Continue taking these medications: Warfarin Sodium (Warfarin Sodium) 5 MG TABLET 1 Tablet ORAL DAILY Qty = 135 Comments: Last Taken: 10/19/17 Time: 6:10 PM Pravastatin Sodium (Pravastatin Sodium) 80 MG TABLET 1 Tablet ORAL DAILY Qty = 90 Comments: Last Taken: 10/19/17 Time: 06:10 PM Finasteride (Finasteride) 5 MG TABLET 1 Tablet ORAL DAILY Qty = 90 Comments: Last Taken: 10/20/17 Time: 08:38 AM Folic Acid (Folic Acid) 1 MG TABLET 1 Tablet ORAL DAILY Qty = 30 Comments: Last Taken: 10/20/17 Time: 08:38 AM Acetaminophen (Tylenol Extra Strength) 500 MG TABLET 1 Tablet ORAL as needed for PAIN Comments: Last Taken: 10/20/17 Time: 06:32 AM Tamsulosin HCl (Flomax) 0.4 MG CAP.ER.24H 1 Capsule ORAL TWICE DAILY Comments: Last Taken: 10/20/17 Time: 08:38 AM Prednisone (Prednisone) 10 MG TABLET 1 Tablet ORAL DAILY Qty = 60 Comments: Last Taken: 10/20/17 Time: 08:38 AM Bifidobacterium Infantis (Align) 4 MG (1 BILLION CELL) CAPSULE 1 Capsule ORAL DAILY as needed for GI Comments: NOT GIVEN IN HOSPITAL Omeprazole (Omeprazole) 40 MG CAPSULE.DR 1 Capsule ORAL DAILY Qty = 90 Comments: Last Taken: 10/20/17 Time: 06:32 AM Bioflav,Lemon/Vit Bcomp,C (Lipo-Flavonoid Plus Caplet) 200 MG-100 MG TABLET 1 Tablet ORAL DAILY Meclizine HCl (Meclizine HCl) 25 MG TABLET 1 Tablet ORAL As Directed as needed for VERTIGO Qty = 30 Comments: NOT GIVEN IN HOSPITAL Start taking the following new medications: Metoprolol Succ XL (Toprol XL) 25 MG TAB.ER.24H 1 Tablet ORAL DAILY Qty = 60 No Refills Instructions: . Sulfamethoxazole/Trimethoprim (Bactrim Ds Tablet) 800 MG-160 MG TABLET 1 Tablet ORAL TWICE DAILY Qty = 14 No Refills Copies To: Chin Freeman MD, MD Review Statement Documenting Attending: Chin Freeman MD, MD Review Statement Documenting Attending: Chin Freeman MD
--- NOTE | 2017-10-16 11:05 | PN- General Surgery ---
See Addendum Subjective Subjective: i&d at bedside yesterday by dr morgan of abdominal abscess comfortable today feels a little better denies fever, chills, or rigors overnight Objective Vital Signs and I&Os Vital Signs Date Time Temp Pulse Resp B/P B/P Pulse O2 O2 Flow FiO2 Mean Ox Delivery Rate 10/16 0950 72 132/70 10/16 0950 72 132/70 10/16 0633 98.0 72 20 132/70 95 Room Air 10/16 0000 CPAP 10/15 2243 98.4 68 20 134/64 95 Room Air 10/15 2212 78 95 10/15 2121 83 136/64 10/15 2120 85 136/64 10/15 1437 98.1 67 20 118/74 94 Room Air Intake & Output 10/16 1600 10/16 0800 10/16 0000 10/15 1600 10/15 0800 10/15 0000 Intake Total 328 750 300 282 594 Output Total Balance 328 750 300 282 594 Intake, IV 208 400 232 354 Intake, Oral 120 350 300 50 240 Number 0 0 1 0 Bowel Movements Patient 169 lb Weight Weight Bed scale Measurement Method Physical Exam: abdomen: large amount of purluent drainage on bandage removed area around incisions remains indurated/erythematous less fluid expressed from wounds wund irrigated with 120cc of NS wounds repacked with 1" plain packing Assessment/Plan Assessment/Plan slight improvement of wound abscess after i&d yesterday plan if d/c will need daily drsg with packing to two areas abx per medical team f/u cx's
[2017-10-16 11:34] LABS: PTT 116 SEC (25-37)
--- NOTE | 2017-10-16 12:52 | PN- Infect Dx ---
Subjective Subjective: Afebrile on steroids without complaints Objective Last 24 Hrs of Vital Signs/I&O Vital Signs Date Time Temp Pulse Resp B/P B/P Pulse O2 O2 Flow FiO2 Mean Ox Delivery Rate 10/16 0850 72 132/70 10/16 0950 72 132/70 10/16 0633 98.0 72 20 132/70 95 Room Air / 0000 CPAP 10/15 2243 98.4 68 20 134/64 95 Room Air 10/15 2212 78 95 10/15 2121 83 136/64 10/15 2120 85 136/64 /07 1437 98.1 67 20 118/74 94 Room Air Intake & Output 10/16 1600 10/16 0800 06 0000 Intake Total 328 750 Output Total Balance 328 750 Intake, IV 208 400 Intake, Oral 120 350 Number 0 0 Bowel Movements Patient 169 lb Weight Weight Bed scale Measurement Method Physical Exam Other Physical Findings: He appears comfortable in no acute distress Abdomen left lower quadrant induration and erythema decreased, with mild tenderness on palpation; [address] Results Last 24 Hours of Lab Results: Laboratory Tests 10/16 10/16 10/15 1010 0616 2150 Chemistry Sodium (137 - 145 mmol/L) 140 Potassium (3.5 - 5.1 mmol/L) 3.7 Chloride (98 - 107 mmol/L) 107 Carbon Dioxide (22 - 30 mmol/L) 25 Anion Gap (5 - 16) 8 BUN (9 - 20 mg/dL) 21 H Creatinine (0.7 - 1.2 mg/dL) 1.3 H Estimated GFR (>60 ml/min) 53 L BUN/Creatinine Ratio (7 - 25 %) 16.2 Coagulation APTT (25 - 37 SEC) 116 *H 81 H Hematology CBC w Diff MAN DIFF ORDERED WBC (4.8 - 10.8 /CUMM) 27.7 H RBC (4.70 - 6.10 /CUMM) 3.74 L Hgb (14.0 - 18.0 G/DL) 9.4 L Hct (42 - 52 %) 29.4 L MCV (80.0 - 94.0 FL) 78.5 L MCH (27.0 - 31.0 PG) 25.1 L MCHC (33.0 - 37.0 G/DL) 31.9 L RDW (11.5 - 14.5 %) 19.1 H Plt Count (130 - 400 /CUMM) 297 MPV (7.4 - 10.4 FL) 9.4 Gran % (42.2 - 75.2 %) 31.6 L Lymphocytes % (20.5 - 51.1 %) 65.1 H Monocytes % (1.7 - 9.3 %) 2.7 Eosinophils % (0 - 5 %) 0.3 Basophils % (0.0 - 2.0 %) 0.3 Absolute Granulocytes (1.4 - 6.5 /CUMM) 8.8 H Segmented Neutrophils (42.2 - 75.2 %) 39 L Band Neutrophils (0.0 - 5.0 %) 1 Absolute Lymphocytes (1.2 - 3.4 /CUMM) 18.1 H Lymphocytes (20.5 - 51.1 %) 57 H Monocytes (1.7 - 9.3 %) 1 L Absolute Monocytes (0.10 - 0.60 /CUMM) 0.8 H Absolute Eosinophils (0.0 - 0.7 /CUMM) 0.1 Basophils (0.0 - 2.0 %) 1 Absolute Basophils (0.0 - 0.2 /CUMM) 0.1 Myelocytes (0 - 0 %) 1 H Platelet Estimate (ADEQUATE) ADEQUATE Hypochromic-Microcytic 1+ Poikilocytosis 2+ Anisocytosis 2+ Microcytic Cells 1+ Ovalocytes 2+ Elliptocytes 1+ Schistocytes Last 24 Hours of Pavel Results: Trunk culture October 15 positive for Staph aureus Blood cultures 2 October 12 negative Assessment/Plan ID Impression: Stable, with temperatures remaining normal (on steroids) and white blood cell count still elevated, presumably secondary to his CLL, on Vancomycin Day 4 of treatment for a left lower quadrant quadrant abdominal wall abscess, presumably secondary to MRSA, status post I&D at the bedside yesterday, with copious purulent material reportedly expressed. Though improved he still has a moderate amount of induration, which may require further drainage. Suggestion: 1. Further management/drainage of his left lower quadrant abscess per Surgery 2. Follow-up final culture 3. Vancomycin trough level with his next dose 4. Continue Vancomycin, with eventual change to Bactrim DS 1 p.o. every 12 hours upon discharge for at least 1 week after adequate drainage Dr. Young is covering over the weekend
--- NOTE | 2017-10-16 13:39 | PN- Att Addend ---
Attending Addendum Attending Brief Note Patient feeling better had drainage of abscess being checked by surgical PA. Vital signs stable afebrile. culture growing staph. aureus. Will check with ID to make sure antibiotic coverage is adequate and restart coumadin. Intake & Output 10/16 1600 10/16 0400 10/15 1600 10/15 0400 10/14 1600 10/14 0400 Intake Total 328 750 582 594 215 400 Output Total 950 Balance 328 750 582 594 -735 400 Intake, IV 208 400 232 354 300 Intake, Oral 120 350 350 240 215 100 Number 0 0 1 0 Bowel Movements Output, Urine 950 Patient 169 lb 169 lb Weight Weight Bed scale Measurement Method Current Medications Sig/Kobe Start time Last Medication Dose Route Stop Time Status Admin Acetaminophen 1,000 MG ONCE ONE 10/16 944 DC 10/16 N/A 1 UNIT IV 10/16 09 0950 Acetaminophen 650 MG .STK-MED ONE 10/16 0008 DC PO 10/16 0009 Acetaminophen 650 MG Q6P PRN 10/12 1545 AC 10/16 PO 0009 Aspirin 81 MG DAILY 10/16 09 AC 10/16 PO 0950 Diphenhydramine HCl 25 MG .STK-MED ONE 10/15 1715 DC PO 10/15 1716 Diphenhydramine HCl 25 MG DAILY NEEDED PRN 10/12 1845 AC 10/15 PO 1719 Finasteride 5 MG DAILY 10/12 1646 AC 10/16 PO 0950 Folic Acid 1 MG DAILY 10/12 1646 AC 10/16 PO 0950 Heparin Sodium 25,000 UNIT Q24H 10/15 1600 AC 10/15 (Porcine) IV 1619 Sodium Chloride 500 ML Hydroxyzine HCl 25 MG BID PRN 10/12 1845 AC PO Metoprolol Tartrate 12.5 MG BID 10/14 2100 AC 10/16 PO 0950 Omeprazole 40 MG DAILY AC 10/13 0700 AC 10/16 PO 0617 Pravastatin Sodium 20 MG 1700 / 1700 AC 10/15 PO 1614 Prednisone 10 MG DAILY 10/12 1647 AC 10/16 PO 0950 Tamsulosin HCl 0.4 MG BID 10/12 2100 AC 10/16 PO 0950 Vancomycin HCl 1,000 MG Q24H /04 1800 AC 10/15 Sodium Chloride 250 ML IV 1719 Laboratory Tests 10/16/17 1010: APTT 116 *H 10/16/17 0616: Anion Gap 8, Estimated GFR 53 L, BUN/Creatinine Ratio 16.2, CBC w Diff MAN DIFF ORDERED, RBC 3.74 L, MCV 78.5 L, MCH 25.1 L, MCHC 31.9 L, RDW 19.1 H, MPV 9.4, Gran % 31.6 L, Lymphocytes % 65.1 H, Monocytes % 2.7, Eosinophils % 0.3, Basophils % 0.3, Absolute Granulocytes 8.8 H, Segmented Neutrophils 39 L, Band Neutrophils 1, Absolute Lymphocytes 18.1 H, Lymphocytes 57 H, Monocytes 1 L, Absolute Monocytes 0.8 H, Absolute Eosinophils 0.1, Basophils 1, Absolute Basophils 0.1, Myelocytes 1 H, Platelet Estimate ADEQUATE, Hypochromic- Microcytic 1+, Poikilocytosis 2+, Anisocytosis 2+, Microcytic Cells 1+, Ovalocytes 2+, Elliptocytes 1+, Schistocytes 10/15/17 2150: APTT 81 H 10/15/17 0820: APTT 106 *H 10/15/17 0606: Troponin I 1.34 *H, PT 12.6 H, INR 1.15, CBC w Diff MAN DIFF ORDERED, RBC 3.72 L, MCV 77.9 L, MCH 25.0 L, MCHC 32.1 L, RDW 19.0 H, MPV 9.6, Gran % 39.1 L, Lymphocytes % 58.7 H, Monocytes % 1.6 L, Eosinophils % 0.4, Basophils % 0.2, Absolute Granulocytes 11.6 H, Segmented Neutrophils 43, Band Neutrophils 1, Absolute Lymphocytes 17.4 H, Lymphocytes 49, Monocytes 2, Absolute Monocytes 0.5, Eosinophils 3, Absolute Eosinophils 0.1, Absolute Basophils 0.1, Metamyelocytes 2 H, Platelet Estimate ADEQUATE, Anisocytosis 1+ 10/15/17 0030: Troponin I 1.63 *H, APTT 52 H 10/14/17 1800: Troponin I 0.43 *H 10/14/17 0722: CBC w Diff MAN DIFF ORDERED, RBC 3.86 L, MCV 77.4 L, MCH 25.5 L, MCHC 33.0, RDW 19.3 H, MPV 9.0, Gran % 35.8 L, Lymphocytes % 61.7 H, Monocytes % 2.0, Eosinophils % 0.4, Basophils % 0.1, Absolute Granulocytes 9.0 H, Segmented Neutrophils 32 L, Absolute Lymphocytes 15.4 H, Lymphocytes 63 H, Monocytes 4, Absolute Monocytes 0.5, Eosinophils 1, Absolute Eosinophils 0.1, Absolute Basophils 0, Platelet Estimate ADEQUATE, Hypochromic-Microcytic 1+, Poikilocytosis 1+, Anisocytosis 2+, Microcytic Cells 1+, Ovalocytes 1+ 10/14/17614: PT 13.0 H, INR 1.19 H 10/13/17 1510: Urine Color YEL, Urine Clarity HAZY H, Urine pH 6.0, Ur Specific [place] <= 1.005, Urine Protein NEG, Urine Ketones NEG, Urine Nitrite NEG, Urine Bilirubin NEG, Urine Urobilinogen 0.2, Ur Leukocyte Esterase NEG, Ur Microscopic SEDIMENT EXAMINED, Micro UA Comment NEGATIVE MICROSCOPIC, Urine Hemoglobin SMALL H, Urine Glucose NEG Microbiology 10/15 1344 TRUNK: Culture & Sensitivity - RES STAPH AUREUS 10/15 1344 TRUNK: Gram Stain - RES 10/13 1509 URINE ROUT: Urine Culture - COMP Microbiology 10/15 1344 TRUNK: Culture & Sensitivity - RES STAPH AUREUS 10/15 1344 TRUNK: Gram Stain - RES 10/13 151 URINE ROUT: Urine Culture - COMP Vital Signs Date Time Temp Pulse Resp B/P B/P Pulse O2 O2 Flow FiO2 Mean Ox Delivery Rate 10/16 0950 72 132/70 08 0950 72 132/70 /08 0633 98.0 72 20 132/70 95 Room Air 08 0000 CPAP 10/15 2243 98.4 68 20 134/64 95 Room Air 10/15 2212 78 95 /07 2121 83 136/64 10/15 2120 85 136/64 10/15 1437 98.1 67 20 118/74 94 Room Air
[2017-10-16] MEDS ORDERED: TOPROL XL25 M2 PO (14:17)
--- NOTE | 2017-10-16 14:18 | Patient Discharge Instructions ---
Discharge Instructions General Discharge Information You were seen/treated for: Lower abdomen cellulitis/abscess You had these procedures: Incision and drainage Special Instructions: -Please follow-up with your primary care physician within 1 week after discharge -Please follow-up with your field radio technician at [facility] within 1 week after discharge, recommendation for further testing for supraventricular tachycardia that developed during her hospital stay -Please take antibiotic as prescribed Acute Coronary Syndrome Inclusion Criteria At DC or during hospital stay patient has or had the following: ACS DIAGNOSIS No Discharge Core Measures Meds if any: Prescribed or Continued at Discharge Meds if any: NOT Prescribed or Continued at Discharge Congestive Heart Failure Inclusion Criteria At DC or during hospital stay patient has or had the following: CHF DIAGNOSIS No Discharge Core Measures Meds if any: Prescribed or Continued at Discharge Meds if any: NOT Prescribed or Continued at Discharge Cerebrovascular accident Inclusion Criteria At DC or during hospital stay patient has or had the following: CVA/TIA Diagnosis No Discharge Core Measures Meds if any: Prescribed or Continued at Discharge Meds if any: NOT Prescribed or Continued at Discharge Venous thromboembolism Inclusion Criteria VTE Diagnosis No VTE Type NONE VTE Confirmed by (Test) NONE Discharge Core Measures - Per Current guidelines, there needs to be overlap - treatment for the first 5 days of Warfarin therapy. - If discharged on Warfarin prior to 5 days of - overlap therapy, the patient will need to be - assessed for post discharge needs including - *Post discharge parental anticoagulation - *Warfarin and/or parental anticoagulation education - *Follow up date to check INR post discharge At least 5 days overlap therapy as Inpatient Yes Meds if any: Prescribed or Continued at Discharge Note: Overlap Therapy is Warfarin and Anticoagulant Meds if any: NOT Prescribed or Continued at Discharge
[2017-10-16 14:26] VITALS: BP 122/60
[2017-10-16 14:29] LABS: PT 12.4 SEC (9.4-12.5)
--- NOTE | 2017-10-16 14:35 | PN- Cardiology ---
Subjective Subjective: Stable Objective Vital Signs and I&Os Vital Signs Date Time Temp Pulse Resp B/P B/P Pulse O2 O2 Flow FiO2 Mean Ox Delivery Rate 10/16 1426 98.3 65 20 122/60 96 Room Air / 0950 72 132/70 10/16 0950 72 132/70 / 0633 98.0 72 20 132/70 95 Room Air /08 0000 CPAP 10/15 2243 98.4 68 20 134/64 95 Room Air 10/15 2212 78 95 10/15 2121 83 136/64 10/15 2120 85 136/64 10/15 1437 98.1 67 20 118/74 94 Room Air Intake & Output 10/16 1600 10/16 0810/16 0000 10/15 1600 10/15 0800 10/15 0000 Intake Total 800 328 750 300 282 594 Output Total 100 Balance 700 328 750 300 282 594 Intake, IV 200 208 400 232 354 Intake, Oral 600 120 350 300 50 240 Number 0 0 1 0 Bowel Movements Output, Urine 100 Patient 169 lb Weight Weight Bed scale Measurement Method Physical Exam: General Appearance Alert, Oriented X3, Cooperative, No Acute Distress Skin No Rashes, patient has lower left sided wound at ankle that is covered by bandage status post wound VAC removal.surrounding erythema and edema. HEENT Atraumatic, EOMI, Mucous Membr. moist/pink Cardiovascular Regular Rate, Normal S1, Normal S2, crisp prosthetic valve sounds , 1 to 2/6 systolic ejection murmur Lungs Clear to Auscultationaand percussion bilaterally Abdomen Normal Bowel Sounds, Soft, No Tenderness Neurological Normal /nonfocal Extremities No Clubbing, No Cyanosis, No Edema, Normal Pulses Vascular Normal Pulses, Pulses Symmetrical Current Medications: Current Medications Sig/Kobe Start time Last Medication Dose Route Stop Time Status Admin Acetaminophen 1,000 MG ONCE ONE 10/16 944 DC 10/16 N/A 1 UNIT IV 10/16 0859 0950 Acetaminophen 650 MG .STK-MED ONE 10/16 0008 DC PO 10/16 0009 Acetaminophen 650 MG Q6P PRN 10/12 1545 AC 10/16 PO 0009 Aspirin 81 MG DAILY 10/16 0900 AC 10/16 PO 0950 Diphenhydramine HCl 25 MG .STK-MED ONE 10/15 1715 DC PO 10/15 171 Diphenhydramine HCl 25 MG DAILY NEEDED PRN 10/12 1845 AC 10/15 PO 1719 Finasteride 5 MG DAILY 10/12 1646 AC 10/16 PO 0950 Folic Acid 1 MG DAILY 10/12 1646 AC 10/16 PO 0950 Heparin Sodium 25,000 UNIT Q24H 10/15 1600 AC 10/15 (Porcine) IV 1619 Sodium Chloride 500 ML Hydroxyzine HCl 25 MG BID PRN 10/12 1845 AC PO Metoprolol Tartrate 12.5 MG BID 10/14 2100 AC 10/16 PO 0950 Omeprazole 40 MG DAILY AC 10/13 0700 AC 10/16 PO 0617 Pravastatin Sodium 20 MG 1700 10/12 1700 AC 10/15 PO 1614 Prednisone 10 MG DAILY 10/12 1647 AC 10/16 PO 0950 Tamsulosin HCl 0.4 MG BID 10/12 2100 AC 10/16 PO 0950 Vancomycin HCl 1,000 MG Q24H 10/12 1800 AC 10/15 Sodium Chloride 250 ML IV 1719 Results Last 48 Hrs of Labs/Mics: Laboratory Tests 10/16/17 1412: PT Cancelled, INR Cancelled 10/16/17 1010: PT 12.4, INR 1.14, APTT 116 *H 10/16/17 0616: Anion Gap 8, Estimated GFR 53 L, BUN/Creatinine Ratio 16.2, CBC w Diff MAN DIFF ORDERED, RBC 3.74 L, MCV 78.5 L, MCH 25.1 L, MCHC 31.9 L, RDW 19.1 H, MPV 9.4, Gran % 31.6 L, Lymphocytes % 65.1 H, Monocytes % 2.7, Eosinophils % 0.3, Basophils % 0.3, Absolute Granulocytes 8.8 H, Segmented Neutrophils 39 L, Band Neutrophils 1, Absolute Lymphocytes 18.1 H, Lymphocytes 57 H, Monocytes 1 L, Absolute Monocytes 0.8 H, Absolute Eosinophils 0.1, Basophils 1, Absolute Basophils 0.1, Myelocytes 1 H, Platelet Estimate ADEQUATE, Hypochromic- Microcytic 1+, Poikilocytosis 2+, Anisocytosis 2+, Microcytic Cells 1+, Ovalocytes 2+, Elliptocytes 1+, Schistocytes 10/15/17 2150: APTT 81 H 10/15/17 0820: APTT 106 *H 10/15/17 0606: Troponin I 1.34 *H, PT 12.6 H, INR 1.15, CBC w Diff MAN DIFF ORDERED, RBC 3.72 L, MCV 77.9 L, MCH 25.0 L, MCHC 32.1 L, RDW 19.0 H, MPV 9.6, Gran % 39.1 L, Lymphocytes % 58.7 H, Monocytes % 1.6 L, Eosinophils % 0.4, Basophils % 0.2, Absolute Granulocytes 11.6 H, Segmented Neutrophils 43, Band Neutrophils 1, Absolute Lymphocytes 17.4 H, Lymphocytes 49, Monocytes 2, Absolute Monocytes 0.5, Eosinophils 3, Absolute Eosinophils 0.1, Absolute Basophils 0.1, Metamyelocytes 2 H, Platelet Estimate ADEQUATE, Anisocytosis 1+ 10/15/17 0030: Troponin I 1.63 *H, APTT 52 H 10/14/17 1800: Troponin I 0.43 *H Assessment/Plan Assessment/Plan Assessment: 1. [facility] mechanical aortic valve on warfarin therapy 2. Left lower quadrant abdominal wall purulent cellulitis with abscess 3. CLL on prednisone 4. History of lung cancer status post right lower lobectomy 5. History of MRSA cellulitis 6. History of endocarditis 7. GERD 8. hyperlipidemia 9. Paroxysmal SVT, currently in sinus rhythm 10. Positive troponin, likely type II MO Plan: * Continue metoprolol * Restart warfarin and continue IV heparin pending therapeutic INR * Continue to monitor on telemetry * Given the positive troponin, would start low-dose aspirin if possible after the procedure today. The patient will need close followup with his regular access services representative post discharge and should likely have a followup nuclear stress test then. Continue telemetry? Yes
[2017-10-16 19:21] LABS: PTT 71 SEC (25-37)
[2017-10-16 22:30] VITALS: BP 122/60
[2017-10-17 06:45] VITALS: BP 120/58
[2017-10-17 08:29] LABS: PTT 63 SEC (25-37)
[2017-10-17 08:30] LABS: ABSOLUTE BASOPHIL COUNT 0.1 /CUMM (0.0-0.2); ABSOLUTE EOSINOPHIL COUNT 0.1 /CUMM (0.0-0.7); ABSOLUTE GRANULOCYTE CT 8.1 /CUMM (1.4-6.5); ABSOLUTE LYMPH COUNT 20.1 /CUMM (1.2-3.4); ABSOLUTE MONOCYTE COUNT 0.5 /CUMM (0.10-0.60); BASOPHIL % 0.2 % (0.0-2.0); EOSINOPHIL % 0.5 % (0-5); HEMATOCRIT 28.5 % (42-52); MEAN CORPUSCULAR HGB 25.3 PG (27.0-31.0); MEAN CORPUSCULAR HGB CONC 32.2 G/DL (33.0-37.0); MEAN CORPUSCULAR VOLUME 78.5 FL (80.0-94.0); MEAN PLATELET VOLUME 9.2 FL (7.4-10.4); PLATELET COUNT 307 /CUMM (130-400); RBC DISTRIBUTION WIDTH 19.4 % (11.5-14.5); RED BLOOD CELL CT 3.64 /CUMM (4.70-6.10)
--- NOTE | 2017-10-17 08:40 | PN- Housestaff ---
Subjective Follow-up For: LLQ cellulitis/abscess Tele-Events Since Last Visit: No overnight events, sinus bradycardia 4050, normal intervals Subjective: Patient was seen and examined at bedside, dressing in place soiled with significant amount of pus. Blood culture grew MRSA Review of Systems Constitutional: Denies: see HPI. Objective Last 24 Hrs of Vital Signs/I&O Vital Signs Date Time Temp Pulse Resp B/P B/P Pulse O2 O2 Flow FiO2 Mean Ox Delivery Rate 10/17 0803 64 118/64 10/17 0802 68 118/64 10/17 0800 97 Room Air 10/17 0645 96.9 49 20 120/58 98 CPAP 10/17 0036 48 94 / 0000 95 CPAP 10/16 2230 97.2 51 20 122/60 98 CPAP / 2223 50 94 /08 2113 65 122/60 /08 2108 65 122/60 / 1426 98.3 65 20 122/60 96 Room Air Intake & Output 10/17 1600 10/17 0800 06/ 0000 Intake Total 560 400 Output Total 225 450 Balance 335 -50 Intake, IV 160 Intake, Oral 400 400 Output, Urine 225 450 Physical Exam General Appearance: Alert, Oriented X3, Cooperative, No Acute Distress HEENT: Atraumatic, PERRLA, EOMI, Mucous Membr. moist/pink Cardiovascular: Normal S1, Normal S2 Lungs: Normal Air Movement Abdomen: Abdominal wound covered by surgical dressing , draining significant amount of pus Extremities: No Edema Assessment/Plan Assessment: 81 year old man with PMHx of CLL, lung cancer, recent left abdominal hernia repair (04/2017), right lower extremity cellulitis, and mechanical aortic valve on Coumadin was sent in by his PCP for evalution of left lower abdominal swelling, redness, with occasional drainage without fever. Patient was prescribed Bactrim which he took for 4 days prior to admission admitted for management of left lower quadrant cellulitis and abscess concerning for MRSA. #Left lower quadrant purulent abdominal wall cellulitis/abscess: abd wounds draining sig amount of pus , surgical PA changed the dressing. Wound culture grew MRSA, Vanco trough 10, History of MRSA cellulitis Leukocytosis increasing to 29.6 (on vancomycin and chronic steroids for CLL) Outpatient antibiotic failure with bactrim 1.2cm abscess but was determined to be too small for IR drainage * I&D culture: MRSA * Vanco trough 10 , increase Vanco to 1 g twice daily, will check Vanco trough 1 hour before the fourth dose-discussed with Dr. Perry Follow up infectious disease and surgery recommendations [facility] Mechanical valve with supratherapeutic INR: possibly related to recent course of bactrim Coumadin on hold, should be on aspirin also (not on med list) Given 10mg po vitamin K yesterday INR 1.1 this morning, give coumadin 7.5 today CLL: on prednisone 10mg daily History of lacunar infaract Continue statin, should be on aspirin NAEEM Nocturnal CPAP GERD PO PPI BPH Continue finasteride and flomax Heart Healthy diet DVT ppx-on coumadin, and intravenous heparin as INR subtherapeutic Full code Problem List: 1. Hernia 2. Cellulitis and abscess of trunk Pain Ratin Pain Location: N/A Pain Goal: Remain pain free Pain Plan: Pathway Tomorrow's Labs & Rationales: CBC BEP
--- NOTE | 2017-10-17 10:39 | PN- Att Addend ---
Attending Addendum Attending Brief Note Patient got out of bed going to the bathroom patient states that affected area feels a little better still a little sore. Surgery assessing the wound at this point and continue to irrigate antibiotic therapy as per infectious diseases recommendations. Vital signs are stable no fever , no new changes on physical. INR still subtherapeutic continues on heparin while bridging Intake & Output 10/17 1600 10/17 0400 10/16 1600 10/16 0400 10/15 1600 10/15 0400 Intake Total 296 452 1296 750 582 594 Output Total 225 450 100 Balance 335 -50 1028 750 582 594 Intake, IV 160 408 400 232 354 Intake, Oral 400 400 720 350 350 240 Number 0 0 1 0 Bowel Movements Output, Urine 225 450 100 Patient 169 lb 169 lb Weight Weight Bed scale Measurement Method Current Medications Sig/Kobe Start time Last Medication Dose Route Stop Time Status Admin Acetaminophen 650 MG .STK-MED ONE 10/16 2114 DC PO 10/16 211 Acetaminophen 1,000 MG .STK-MED ONE 10/16 1823 DC IV 10/16 1824 Acetaminophen 650 MG Q6P PRN 10/12 1545 10/17 PO 0803 Aspirin 81 MG DAILY 10/16 0900 AC 10/17 PO 0803 Diphenhydramine HCl 25 MG DAILY NEEDED PRN 10/12 1845 AC 10/15 PO 1719 Finasteride 5 MG DAILY 10/12 1646 AC 10/17 PO 0802 Folic Acid 1 MG DAILY 10/12 1646 AC 10/17 PO 0802 Heparin Sodium 25,000 UNIT Q24H 10/15 1600 AC 10/16 (Porcine) IV 1623 Sodium Chloride 500 ML Hydroxyzine HCl 25 MG BID PRN 10/12 1845 AC PO Metoprolol Tartrate 12.5 MG BID 10/14 2100 AC 10/17 PO 0803 Omeprazole 40 MG DAILY AC 10/13 0700 AC 10/17 PO 0634 Pravastatin Sodium 20 MG 1700 10/12 1700 AC 10/16 PO 1620 Prednisone 10 MG DAILY 10/12 1647 AC 10/17 PO 0802 Tamsulosin HCl 0.4 MG BID 10/12 2100 AC 10/17 PO 0802 Vancomycin HCl 1,000 MG Q24H / 1800 AC 10/16 Sodium Chloride 250 ML IV 1830 Warfarin Sodium 5 MG COUMADIN 1700 ONE 10/17 1700 DC PO 10/17 170 Warfarin Sodium 7.5 MG COUMADIN 1700 ONE 10/17 170 AC PO 10/17 170 Warfarin Sodium 5 MG COUMADIN 170 ONE 10/16 170 DC 10/16 PO 10/16 170 1622 Laboratory Tests 10/17/17 0604: Anion Gap 8, Estimated GFR 58 L, BUN/Creatinine Ratio 17.5, PT 12.0, INR 1.10, APTT 63 H, CBC w Diff Pending, WBC Pending, RBC Pending, Hgb Pending, Hct Pending, MCV Pending, MCH Pending, MCHC Pending, RDW Pending, Plt Count Pending, MPV Pending 10/16/17 1840: APTT 71 H, Vancomycin Trough 10.0 10/16/17 1412: PT Cancelled, INR Cancelled 10/16/17 1010: PT 12.4, INR 1.14, APTT 116 *H 10/16/17 0616: Anion Gap 8, Estimated GFR 53 L, BUN/Creatinine Ratio 16.2, CBC w Diff MAN DIFF ORDERED, RBC 3.74 L, MCV 78.5 L, MCH 25.1 L, MCHC 31.9 L, RDW 19.1 H, MPV 9.4, Gran % 31.6 L, Lymphocytes % 65.1 H, Monocytes % 2.7, Eosinophils % 0.3, Basophils % 0.3, Absolute Granulocytes 8.8 H, Segmented Neutrophils 39 L, Band Neutrophils 1, Absolute Lymphocytes 18.1 H, Lymphocytes 57 H, Monocytes 1 L, Absolute Monocytes 0.8 H, Absolute Eosinophils 0.1, Basophils 1, Absolute Basophils 0.1, Myelocytes 1 H, Platelet Estimate ADEQUATE, Hypochromic- Microcytic 1+, Poikilocytosis 2+, Anisocytosis 2+, Microcytic Cells 1+, Ovalocytes 2+, Elliptocytes 1+, Schistocytes 10/15/17 2150: APTT 81 H 10/15/17 0820: APTT 106 *H 10/15/17 0606: Troponin I 1.34 *H, PT 12.6 H, INR 1.15, CBC w Diff MAN DIFF ORDERED, RBC 3.72 L, MCV 77.9 L, MCH 25.0 L, MCHC 32.1 L, RDW 19.0 H, MPV 9.6, Gran % 39.1 L, Lymphocytes % 58.7 H, Monocytes % 1.6 L, Eosinophils % 0.4, Basophils % 0.2, Absolute Granulocytes 11.6 H, Segmented Neutrophils 43, Band Neutrophils 1, Absolute Lymphocytes 17.4 H, Lymphocytes 49, Monocytes 2, Absolute Monocytes 0.5, Eosinophils 3, Absolute Eosinophils 0.1, Absolute Basophils 0.1, Metamyelocytes 2 H, Platelet Estimate ADEQUATE, Anisocytosis 1+ 10/15/17 0030: Troponin I 1.63 *H, APTT 52 H 10/14/17 1800: Troponin I 0.43 *H Microbiology 10/15 1344 TRUNK: Culture & Sensitivity - COMP METH RESIST STAPH AUREUS 10/15 1344 TRUNK: Gram Stain - COMP Microbiology Date/Time Procedure - Status Source Growth 10/15 1344 Culture & Sensitivity - COMP TRUNK METH RESIST STAPH AUREUS 10/15 1344 Gram Stain - COMP TRUNK Vital Signs Date Time Temp Pulse Resp B/P B/P Pulse O2 O2 Flow FiO2 Mean Ox Delivery Rate 10/17 0803 64 118/64 10/17 0802 68 118/64 10/17 0800 97 Room Air 10/17 0645 96.9 49 20 120/58 98 CPAP 10/17 0036 48 94 10/17 0000 95 CPAP 10/16 2230 97.2 51 20 122/60 98 CPAP 10/16 2223 50 94 /08 2113 65 122/60 08 2108 65 122/60 08 1426 98.3 65 20 122/60 96 Room Air
--- NOTE | 2017-10-17 11:06 | PN- General Surgery ---
Subjective Subjective: FEELING OK, SOME PAIN AT WOUND. Objective Vital Signs and I&Os Vital Signs Date Time Temp Pulse Resp B/P B/P Pulse O2 O2 Flow FiO2 Mean Ox Delivery Rate 10/17 0803 64 118/64 10/17 0802 68 118/64 10/17 0800 97 Room Air 10/17 0645 96.9 49 20 120/58 98 CPAP 10/17 0036 48 94 / 0000 95 CPAP 10/16 2230 97.2 51 20 122/60 98 CPAP 10/16 2223 50 94 08 2113 65 122/60 10/16 2108 65 122/60 10/16 1426 98.3 65 20 122/60 96 Room Air Intake & Output 10/17 1600 10/17 0800 10/17 0000 10/16 1600 10/17 0700 10/16 0000 Intake Total 560 400 800 328 750 Output Total 225 450 100 Balance 335 -50 700 328 750 Intake, IV 160 200 208 400 Intake, Oral 400 400 600 120 350 Number 0 0 Bowel Movements Output, Urine 225 450 100 Patient 169 lb 169 lb Weight Weight Bed scale Measurement Method Physical Exam: gen- nad. afebrile abd- dressing with sanguinopurulent drainage, wound indurated and erythematous, some ecchymosis. packing removed. moderate amt purulent material expressed from both incisions- flushed w NS. repacked w packing strips. covered w bulky gauze dressing Results Last 48 Hours of Labs: Laboratory Tests 10/17 10/16 10/16 10/16 0604 1840 1412 1010 Chemistry Sodium (137 - 145 mmol/L) 139 Potassium (3.5 - 5.1 mmol/L) 3.9 Chloride (98 - 107 mmol/L) 105 Carbon Dioxide (22 - 30 mmol/L) 26 Anion Gap (5 - 16) 8 BUN (9 - 20 mg/dL) 21 H Creatinine (0.7 - 1.2 mg/dL) 1.2 Estimated GFR (>60 ml/min) 58 L BUN/Creatinine Ratio (7 - 25 %) 17.5 Coagulation PT (9.4 - 12.5 SEC) 12.0 Cancelled 12.4 INR (0.90 - 1.17) 1.10 Cancelled 1.14 APTT (25 - 37 SEC) 63 H 71 H 116 *H Hematology CBC w Diff Pending WBC Pending RBC Pending Hgb Pending Hct Pending MCV Pending MCH Pending MCHC Pending RDW Pending Plt Count Pending MPV Pending Toxicology Vancomycin Trough (10.0 - 20.0 ug/mL) 10.0 06/08 0607 0616 2150 Chemistry Sodium (137 - 145 mmol/L) 140 Potassium (3.5 - 5.1 mmol/L) 3.7 Chloride (98 - 107 mmol/L) 107 Carbon Dioxide (22 - 30 mmol/L) 25 Anion Gap (5 - 16) 8 BUN (9 - 20 mg/dL) 21 H Creatinine (0.7 - 1.2 mg/dL) 1.3 H Estimated GFR (>60 ml/min) 53 L BUN/Creatinine Ratio (7 - 25 %) 16.2 Coagulation APTT (25 - 37 SEC) 81 H Hematology CBC w Diff MAN DIFF ORDERED WBC (4.8 - 10.8 /CUMM) 27.7 H RBC (4.70 - 6.10 /CUMM) 3.74 L Hgb (14.0 - 18.0 G/DL) 9.4 L Hct (42 - 52 %) 29.4 L MCV (80.0 - 94.0 FL) 78.5 L MCH (27.0 - 31.0 PG) 25.1 L MCHC (33.0 - 37.0 G/DL) 31.9 L RDW (11.5 - 14.5 %) 19.1 H Plt Count (130 - 400 /CUMM) 297 MPV (7.4 - 10.4 FL) 9.4 Gran % (42.2 - 75.2 %) 31.6 L Lymphocytes % (20.5 - 51.1 %) 65.1 H Monocytes % (1.7 - 9.3 %) 2.7 Eosinophils % (0 - 5 %) 0.3 Basophils % (0.0 - 2.0 %) 0.3 Absolute Granulocytes (1.4 - 6.5 /CUMM) 8.8 H Segmented Neutrophils (42.2 - 75.2 %) 39 L Band Neutrophils (0.0 - 5.0 %) 1 Absolute Lymphocytes (1.2 - 3.4 /CUMM) 18.1 H Lymphocytes (20.5 - 51.1 %) 57 H Monocytes (1.7 - 9.3 %) 1 L Absolute Monocytes (0.10 - 0.60 /CUMM) 0.8 H Absolute Eosinophils (0.0 - 0.7 /CUMM) 0.1 Basophils (0.0 - 2.0 %) 1 Absolute Basophils (0.0 - 0.2 /CUMM) 0.1 Myelocytes (0 - 0 %) 1 H Platelet Estimate (ADEQUATE) ADEQUATE Hypochromic-Microcytic 1+ Poikilocytosis 2+ Anisocytosis 2+ Microcytic Cells 1+ Ovalocytes 2+ Elliptocytes 1+ Schistocytes Assessment/Plan Assessment/Plan A- Day 2 sp bedside I&D abdominal wall abscess, improving though continued induratuion and active purulent drainage. P- cont abx per ID daily dressing/packing changes by surg team will leonardo attending
[2017-10-17 11:20] LABS: WHITE BLOOD CELL COUNT 28.8 /CUMM (4.8-10.8)
--- NOTE | 2017-10-17 12:48 | PN- Infect Dx ---
Subjective Subjective: This patient is a 81-year-old white male failed left flank MRSA cellulitis and abscess. The patient is currently feeling well. He remains afebrile however his white blood cell count is slightly elevated. The patient continues to have purulent drainage per the surgical team. The patient denies any fevers chills nausea vomiting or diarrhea. Review of Systems Comments: 12 point review of system complete no other positive findings Objective Last 24 Hrs of Vital Signs/I&O Vital Signs Date Time Temp Pulse Resp B/P B/P Pulse O2 O2 Flow FiO2 Mean Ox Delivery Rate 10/17 0803 64 118/64 10/17 0802 68 118/64 10/17 0800 97 Room Air 10/17 0645 96.9 49 20 120/58 98 CPAP 10/17 0036 48 94 10/17 0000 95 CPAP 10/16 2230 97.2 51 20 122/60 98 CPAP 10/16 2223 50 94 08 2113 65 122/60 10/16 2108 65 122/60 10/16 1426 98.3 65 20 122/60 96 Room Air Intake & Output 10/17 1600 10/17 0800 06/ 0000 Intake Total 560 400 Output Total 225 450 Balance 335 -50 Intake, IV 160 Intake, Oral 400 400 Output, Urine 225 450 Physical Exam Other Physical Findings: Awake alert oriented 3 Pupils equal and reactive to light and accommodation has equal ocular motion Moist mucous membranes Neck supple no JVD no lymphadenopathy Lungs clear to auscultation bilaterally Heart regular rate and rhythm S1-S2 Abdomen soft nontender nondistended. Skin surrounding recent debridement clear with no erythema or warmth. Neurologically intact. Results Last 24 Hours of Lab Results: Laboratory Tests 10/17 10/16 10/16 0604 1840 1412 Chemistry Sodium (137 - 145 mmol/L) 139 Potassium (3.5 - 5.1 mmol/L) 3.9 Chloride (98 - 107 mmol/L) 105 Carbon Dioxide (22 - 30 mmol/L) 26 Anion Gap (5 - 16) 8 BUN (9 - 20 mg/dL) 21 H Creatinine (0.7 - 1.2 mg/dL) 1.2 Estimated GFR (>60 ml/min) 58 L BUN/Creatinine Ratio (7 - 25 %) 17.5 Coagulation PT (9.4 - 12.5 SEC) 12.0 Cancelled INR (0.90 - 1.17) 1.10 Cancelled APTT (25 - 37 SEC) 63 H 71 H Hematology CBC w Diff NO MAN DIFF REQ WBC (4.8 - 10.8 /CUMM) 28.8 H RBC (4.70 - 6.10 /CUMM) 3.64 L Hgb (14.0 - 18.0 G/DL) 9.2 L Hct (42 - 52 %) 28.5 L MCV (80.0 - 94.0 FL) 78.5 L MCH (27.0 - 31.0 PG) 25.3 L MCHC (33.0 - 37.0 G/DL) 32.2 L RDW (11.5 - 14.5 %) 19.4 H Plt Count (130 - 400 /CUMM) 307 MPV (7.4 - 10.4 FL) 9.2 Gran % (42.2 - 75.2 %) 28.0 L Lymphocytes % (20.5 - 51.1 %) 69.6 H Monocytes % (1.7 - 9.3 %) 1.7 Eosinophils % (0 - 5 %) 0.5 Basophils % (0.0 - 2.0 %) 0.2 Absolute Granulocytes (1.4 - 6.5 /CUMM) 8.1 H Absolute Lymphocytes (1.2 - 3.4 /CUMM) 20.1 H Absolute Monocytes (0.10 - 0.60 /CUMM) 0.5 Absolute Eosinophils (0.0 - 0.7 /CUMM) 0.1 Absolute Basophils (0.0 - 0.2 /CUMM) 0.1 Toxicology Vancomycin Trough (10.0 - 20.0 ug/mL) 10.0 Last 24 Hours of Pavel Results: Microbiology Date/Time Procedure - Status Source Growth 10/15 1344 Culture & Sensitivity - COMP TRUNK METH RESIST STAPH AUREUS 10/15 1344 Gram Stain - COMP TRUNK Recent Imaging Studies: No recent radiologic studies. Previous reviewed Assessment/Plan ID Impression: This patient is a 81-year-old white male with an extensive MRSA abscess and an elevated white blood cell count which may in part be related to his steroids. The patient has undergone bedside debridement today continued purulence. Overall appears to be improving on vancomycin day 5. Suggestion: 1. Continue vancomycin 2. Continue evaluation and management by surgery with persistent drainage 3. Follow white blood cell count and check blood cultures with fevers.
--- NOTE | 2017-10-17 14:14 | PN- General Surgery ---
Surgical Brief Attending Note Brief Attending Note: continued improvement in erythema. no further recs. daily dressing change by nursing. home nursing on discharge. abx per ID
[2017-10-17 15:00] VITALS: BP 100/60
[2017-10-17 19:01] LABS: PTT 62 SEC (25-37)
[2017-10-17 22:00] VITALS: BP 154/72
[2017-10-18 06:55] VITALS: BP 142/64
[2017-10-18 08:00] LABS: ABSOLUTE BASOPHIL COUNT 0 /CUMM (0.0-0.2); ABSOLUTE EOSINOPHIL COUNT 0.1 /CUMM (0.0-0.7); ABSOLUTE GRANULOCYTE CT 8.5 /CUMM (1.4-6.5); ABSOLUTE LYMPH COUNT 22.5 /CUMM (1.2-3.4); ABSOLUTE MONOCYTE COUNT 1.3 /CUMM (0.10-0.60); BASOPHIL % 0.1 % (0.0-2.0); EOSINOPHIL % 0.3 % (0-5); GRANULOCYTE % 26.2 % (42.2-75.2); HEMATOCRIT 29.9 % (42-52); MEAN CORPUSCULAR HGB 25.3 PG (27.0-31.0); MEAN CORPUSCULAR HGB CONC 32.4 G/DL (33.0-37.0); MEAN CORPUSCULAR VOLUME 77.9 FL (80.0-94.0); MEAN PLATELET VOLUME 9.3 FL (7.4-10.4); PLATELET COUNT 323 /CUMM (130-400); RBC DISTRIBUTION WIDTH 19.3 % (11.5-14.5); RED BLOOD CELL CT 3.84 /CUMM (4.70-6.10)
[2017-10-18 08:27] LABS: PT 15.2 SEC (9.4-12.5); PTT 42 SEC (25-37)
[2017-10-18 09:10] LABS: WHITE BLOOD CELL COUNT 32.4 /CUMM (4.8-10.8)
--- NOTE | 2017-10-18 10:30 | PN- Infect Dx ---
Subjective Subjective: This patient is a 81-year-old white male with left flank MRSA cellulitis and abscess. The patient is currently feeling well. He remains afebrile however his white blood cell count is again elevated. The patient denies any fevers chills nausea vomiting or diarrhea. Review of Systems Comments: 12 point review of systems without any positive findings Objective Last 24 Hrs of Vital Signs/I&O Vital Signs Date Time Temp Pulse Resp B/P B/P Pulse O2 O2 Flow FiO2 Mean Ox Delivery Rate 10/18 813 97.6 64 18 142/64 10/18 0814 64 142/64 10/18 0655 97.6 64 18 142/64 96 10/17 2252 123 92 10/17 2200 97.8 66 18 154/72 96 Room Air 10/17 2105 66 154/72 10/17 2104 66 154/72 10/17 1500 97.2 56 20 100/60 97 Intake & Output 10/18 1600 10/18 0800 10/18 0000 Intake Total 350 199.6 Output Total 400 Balance 350 -200.4 Intake, IV 250 79.6 Intake, Oral 100 120 Output, Urine 400 Patient 170 lb Weight Weight Bed scale Measurement Method Physical Exam Other Physical Findings: Awake alert oriented 3 Pupils equal and reactive to light and accommodation has equal ocular motion Neck supple no JVD no lymphadenopathy Lungs clear to auscultation bilaterally Heart regular rate and rhythm S1-S2 Abdomen soft nontender nondistended. Skin surrounding recent debridement clear with no erythema or warmth. Neurologically intact Results Last 24 Hours of Lab Results: Laboratory Tests 10/18 10/17 0642 1805 Chemistry Sodium (137 - 145 mmol/L) 139 Potassium (3.5 - 5.1 mmol/L) 3.9 Chloride (98 - 107 mmol/L) 106 Carbon Dioxide (22 - 30 mmol/L) 25 Anion Gap (5 - 16) 8 BUN (9 - 20 mg/dL) 19 Creatinine (0.7 - 1.2 mg/dL) 1.3 H Estimated GFR (>60 ml/min) 53 L BUN/Creatinine Ratio (7 - 25 %) 14.6 Coagulation PT (9.4 - 12.5 SEC) 15.2 H INR (0.90 - 1.17) 1.39 H APTT (25 - 37 SEC) 42 H 62 H Hematology CBC w Diff NO MAN DIFF REQ WBC (4.8 - 10.8 /CUMM) 32.4 *H RBC (4.70 - 6.10 /CUMM) 3.84 L Hgb (14.0 - 18.0 G/DL) 9.7 L Hct (42 - 52 %) 29.9 L MCV (80.0 - 94.0 FL) 77.9 L MCH (27.0 - 31.0 PG) 25.3 L MCHC (33.0 - 37.0 G/DL) 32.4 L RDW (11.5 - 14.5 %) 19.3 H Plt Count (130 - 400 /CUMM) 323 MPV (7.4 - 10.4 FL) 9.3 Gran % (42.2 - 75.2 %) 26.2 L Lymphocytes % (20.5 - 51.1 %) 69.3 H Monocytes % (1.7 - 9.3 %) 4.1 Eosinophils % (0 - 5 %) 0.3 Basophils % (0.0 - 2.0 %) 0.1 Absolute Granulocytes (1.4 - 6.5 /CUMM) 8.5 H Absolute Lymphocytes (1.2 - 3.4 /CUMM) 22.5 H Absolute Monocytes (0.10 - 0.60 /CUMM) 1.3 H Absolute Eosinophils (0.0 - 0.7 /CUMM) 0.1 Absolute Basophils (0.0 - 0.2 /CUMM) 0 White blood cell count shows an upward trend Last 24 Hours of Pavel Results: Microbiology Date/Time Procedure - Status Source Growth 10/15 1344 Culture & Sensitivity - COMP TRUNK METH RESIST STAPH AUREUS 10/15 1344 Gram Stain - COMP TRUNK Recent Imaging Studies: No new radiologic studies Assessment/Plan ID Impression: This patient is a 81-year-old white male with an extensive MRSA abscess and an elevated white blood cell count which may in part be related to his steroids and underlying CLL. Overall he appears to be improving on vancomycin day 6 and the elevation in his white blood count is unlikely to be an evolution of his infection. May want to consider getting a hematology oncologist to see him shortly after discharge. Dr. Chetan Massey is his Hem/Onc physician. Suggestion: 1. Continue vancomycin 2. Continue evaluation and management of abscess by surgery 3. Follow white blood cell count and check blood cultures with fevers. 4. 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
--- NOTE | 2017-10-18 10:45 | PN- Housestaff ---
See Addendum Subjective Follow-up For: MRSA abscess Tele-Events Since Last Visit: Sinus rhythm, 4080 Subjective: No overnight events. Patient continues to improve and has no complaints. Review of Systems Constitutional: Reports: no symptoms. EENTM: Reports: no symptoms. Cardiovascular: Reports: no symptoms. Respiratory: Reports: no symptoms. Gastrointestinal: Reports: no symptoms. Genitourinary: Reports: no symptoms. Musculoskeletal: Reports: no symptoms. Skin: Reports: no symptoms. Neurological/Psychological: Reports: no symptoms. Hematologic/Endocrine: Reports: no symptoms. Immunologic/Allergic: Reports: no symptoms. Objective Last 24 Hrs of Vital Signs/I&O Vital Signs Date Time Temp Pulse Resp B/P B/P Pulse O2 O2 Flow FiO2 Mean Ox Delivery Rate 10/18 813 97.6 64 18 142/64 10/18 0814 64 142/64 10/18 0655 97.6 64 18 142/64 96 10/17 2252 123 92 10/17 2200 97.8 66 18 154/72 96 Room Air 10/17 2105 66 154/72 10/17 2104 66 154/72 10/17 1500 97.2 56 20 100/60 97 Intake & Output 10/18 1600 10/18 0800 10/18 0000 Intake Total 350 199.6 Output Total 400 Balance 350 -200.4 Intake, IV 250 79.6 Intake, Oral 100 120 Output, Urine 400 Patient 77.196 kg Weight Weight Bed scale Measurement Method Physical Exam General Appearance: Alert, Oriented X3, Cooperative, No Acute Distress Cardiovascular: Regular Rate, Normal S1, Normal S2 Lungs: Clear to Auscultation Abdomen: wound clean and dry Extremities: No Edema Current Medications: Current Medications Sig/Kobe Start time Last Medication Dose Route Stop Time Status Admin Acetaminophen 650 MG .STK-MED ONE 10/17 2054 DC PO 10/18 2055 Acetaminophen 650 MG Q6P PRN 10/12 1545 AC 10/17 PO 2057 Aspirin 81 MG DAILY 10/16 899 AC 10/18 PO 08 Diphenhydramine HCl 25 MG DAILY NEEDED PRN 10/12 1845 AC 10/15 PO 1719 Finasteride 5 MG DAILY 10/12 1646 AC 10/18 PO 0814 Folic Acid 1 MG DAILY 10/12 1646 AC 10/18 PO 0814 Heparin Sodium 25,000 UNIT Q24H 10/15 1600 AC 10/17 (Porcine) IV 1942 Sodium Chloride 500 ML Hydroxyzine HCl 25 MG BID PRN 10/12 1845 AC PO Metoprolol Tartrate 12.5 MG BID 10/14 2100 AC 10/18 PO 0814 Omeprazole 40 MG DAILY AC 10/13 0700 AC 10/18 PO 0606 Pravastatin Sodium 20 MG 1700 10/12 1700 AC 10/17 PO 1736 Prednisone 10 MG DAILY 10/12 1647 AC 10/18 PO 0814 Tamsulosin HCl 0.4 MG BID 10/12 2100 AC 10/18 PO 0814 Vancomycin HCl 1,000 MG BID 10/17 2100 DC Sodium Chloride 250 ML IV Vancomycin HCl 1,000 MG 0400,1600 10/17 1600 AC 10/18 Sodium Chloride 250 ML IV 0323 Vancomycin HCl 1,000 MG Q24H 10/12 1800 DC 10/16 Sodium Chloride 250 ML IV 1830 Warfarin Sodium 7.5 MG COUMADIN 1700 ONE 10/17 1700 DC 10/17 PO 10/17 1701 1737 Last 24 Hrs of Lab/Pavel Results Last 24 Hrs of Labs/Mics: Laboratory Tests 10/18/17 0642: Anion Gap 8, Estimated GFR 53 L, BUN/Creatinine Ratio 14.6, PT 15.2 H, INR 1.39 H, APTT 42 H, CBC w Diff NO MAN DIFF REQ, RBC 3.84 L, MCV 77.9 L, MCH 25.3 L, MCHC 32.4 L, RDW 19.3 H, MPV 9.3, Gran % 26.2 L, Lymphocytes % 69.3 H, Monocytes % 4.1, Eosinophils % 0.3, Basophils % 0.1, Absolute Granulocytes 8.5 H, Absolute Lymphocytes 22.5 H, Absolute Monocytes 1.3 H, Absolute Eosinophils 0.1, Absolute Basophils 0 10/17/17 1805: APTT 62 H Assessment/Plan Assessment: 81 year old man with PMHx of CLL, lung cancer, recent left abdominal hernia repair (04/2017), right lower extremity cellulitis, and mechanical aortic valve on Coumadin was sent in by his PCP for evalution of left lower abdominal swelling, redness, with occasional drainage without fever. Patient was prescribed Bactrim which he took for 4 days prior to admission admitted for management of left lower quadrant cellulitis and abscess concerning for MRSA. #Left lower quadrant purulent abdominal wall cellulitis/abscess: abd wounds draining sig amount of pus , surgical PA changed the dressing and aspirin will be restarted tomorrow History of MRSA cellulitis Leukocytosis increasing to 29.6 (on vancomycin and chronic steroids for CLL) Continue vancomycin 1g IV daily Outpatient antibiotic failure with bactrim 1.2cm abscess but was determined to be too small for IR drainage Plan for bedside I+D with general surgery and culture after INR <2.5 Blood cultures NGTD Follow-up on I&D culture Check UA and culture Follow up infectious disease and surgery recommendations His infection seems to be improving and is clinically doing well. His worsening leukocytosis is unlikely to be related to the infection, more likely related to CLL. He may require hematology evaluation. [facility] Mechanical valve with supratherapeutic INR: possibly related to recent course of bactrim Coumadin on hold, should be on aspirin also (not on med list) Given 10mg po vitamin K yesterday INR 1.19 this morning, will start IV heparin after 2 hours of 90 CLL: on prednisone 10mg daily History of lacunar infaract Continue statin, should be on aspirin NAEEM Nocturnal CPAP GERD PO PPI BPH Continue finasteride and flomax Heart Healthy diet DVT ppx-on coumadin, and intravenous heparin as INR subtherapeutic Full code Problem List: 1. Cellulitis and abscess of trunk Pain Ratin Pain Location: no Pain Goal: Remain pain free Pain Plan: see a/p Tomorrow's Labs & Rationales: cbc
[2017-10-18 15:20] VITALS: BP 132/60
[2017-10-18 16:15] LABS: PTT > 120 SEC (25-37)
--- NOTE | 2017-10-18 17:41 | PN- Att Addend ---
Attending Addendum Attending Brief Note Patient feeling better states the pain is less. Wound check by nurse today Vital signs are stable no fever. 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 Intake & Output 10/18 1600 10/18 0400 10/17 1600 10/17 0400 10/16 1600 10/16 0400 Intake Total 1045.8 199.6 6838 657 4929 750 Output Total 350 400 725 450 100 Balance 695.8 -200.4 635 -50 1028 750 Intake, IV 445.8 79.6 320 408 400 Intake, Oral 151 208 8536 400 720 350 Number 0 0 Bowel Movements Output, Urine 350 400 725 450 100 Patient 170 lb 169 lb 169 lb Weight Weight Bed scale Bed scale Measurement Method Current Medications Sig/Kobe Start time Last Medication Dose Route Stop Time Status Admin Acetaminophen 650 MG .STK-MED ONE 10/17 2054 DC PO 10/18 2055 Acetaminophen 650 MG Q6P PRN 10/12 1545 AC 10/18 PO 1404 Aspirin 81 MG DAILY 10/16 09 AC 10/18 PO 0814 Diphenhydramine HCl 25 MG DAILY NEEDED PRN 10/12 1845 AC 10/15 PO 1719 Finasteride 5 MG DAILY 10/12 1646 AC 10/18 PO 0814 Folic Acid 1 MG DAILY 10/12 1646 AC 10/18 PO 0814 Heparin Sodium 10,000 UNIT .STK-MED ONE 10/18 936 DC (Porcine) IV 10/18 937 Heparin Sodium 25,000 UNIT Q24H 10/15 1600 AC 10/17 (Porcine) IV 1942 Sodium Chloride 500 ML Hydroxyzine HCl 25 MG BID PRN 10/12 1845 AC PO Metoprolol Tartrate 12.5 MG BID 10/14 2100 AC 10/18 PO 0814 Omeprazole 40 MG DAILY AC 10/13 0700 AC 10/18 PO 0606 Pravastatin Sodium 20 MG 1700 06/ 1700 AC 10/18 PO 1657 Prednisone 10 MG DAILY 10/12 1647 AC 10/18 PO 0814 Tamsulosin HCl 0.4 MG BID 10/12 2100 AC 10/18 PO 0814 Vancomycin HCl 1,000 MG DAILY 10/19 0900 AC Sodium Chloride 250 ML IV Vancomycin HCl 1,000 MG BID 10/17 2100 DC Sodium Chloride 250 ML IV Vancomycin HCl 1,000 MG 0400,1600 10/17 1600 DC 10/18 Sodium Chloride 250 ML IV 0323 Warfarin Sodium 7.5 MG COUMADIN 1700 ONE 10/18 1700 DC 10/18 PO 10/18 1701 1658 Laboratory Tests 10/18/17 1526: APTT > 120 *H, Vancomycin Trough 20.9 H 10/18/17 0642: Anion Gap 8, Estimated GFR 53 L, BUN/Creatinine Ratio 14.6, PT 15.2 H, INR 1.39 H, APTT 42 H, CBC w Diff NO MAN DIFF REQ, RBC 3.84 L, MCV 77.9 L, MCH 25.3 L, MCHC 32.4 L, RDW 19.3 H, MPV 9.3, Gran % 26.2 L, Lymphocytes % 69.3 H, Monocytes % 4.1, Eosinophils % 0.3, Basophils % 0.1, Absolute Granulocytes 8.5 H, Absolute Lymphocytes 22.5 H, Absolute Monocytes 1.3 H, Absolute Eosinophils 0.1, Absolute Basophils 0 10/17/17 1805: APTT 62 H 10/17/17 0604: Anion Gap 8, Estimated GFR 58 L, BUN/Creatinine Ratio 17.5, PT 12.0, INR 1.10, APTT 63 H, CBC w Diff NO MAN DIFF REQ, RBC 3.64 L, MCV 78.5 L, MCH 25.3 L, MCHC 32.2 L, RDW 19.4 H, MPV 9.2, Gran % 28.0 L, Lymphocytes % 69.6 H, Monocytes % 1.7, Eosinophils % 0.5, Basophils % 0.2, Absolute Granulocytes 8.1 H, Absolute Lymphocytes 20.1 H, Absolute Monocytes 0.5, Absolute Eosinophils 0.1, Absolute Basophils 0.1 10/16/17 1840: APTT 71 H, Vancomycin Trough 10.0 10/16/17 1412: PT Cancelled, INR Cancelled 10/16/17 1010: PT 12.4, INR 1.14, APTT 116 *H 10/16/17 0616: Anion Gap 8, Estimated GFR 53 L, BUN/Creatinine Ratio 16.2, CBC w Diff MAN DIFF ORDERED, RBC 3.74 L, MCV 78.5 L, MCH 25.1 L, MCHC 31.9 L, RDW 19.1 H, MPV 9.4, Gran % 31.6 L, Lymphocytes % 65.1 H, Monocytes % 2.7, Eosinophils % 0.3, Basophils % 0.3, Absolute Granulocytes 8.8 H, Segmented Neutrophils 39 L, Band Neutrophils 1, Absolute Lymphocytes 18.1 H, Lymphocytes 57 H, Monocytes 1 L, Absolute Monocytes 0.8 H, Absolute Eosinophils 0.1, Basophils 1, Absolute Basophils 0.1, Myelocytes 1 H, Platelet Estimate ADEQUATE, Hypochromic- Microcytic 1+, Poikilocytosis 2+, Anisocytosis 2+, Microcytic Cells 1+, Ovalocytes 2+, Elliptocytes 1+, Schistocytes 10/15/17 2150: APTT 81 H Vital Signs Date Time Temp Pulse Resp B/P B/P Pulse O2 O2 Flow FiO2 Mean Ox Delivery Rate 10/18 1520 97.9 63 18 132/60 96 Room Air 10/18 0814 97.6 64 18 142/64 10/18 0814 64 142/64 10/18 0655 97.6 64 18 142/64 96 10/17 2252 123 92 10/17 2200 97.8 66 18 154/72 96 Room Air 10/17 2105 66 154/72 10/17 2104 66 154/72
[2017-10-18 22:32] VITALS: BP 132/60
[2017-10-19 02:28] LABS: PTT 71 SEC (25-37)
[2017-10-19 07:03] VITALS: BP 118/60
--- NOTE | 2017-10-19 07:03 | PN- Housestaff ---
Subjective Follow-up For: MRSA abscess Tele-Events Since Last Visit: Sinus rhythm, 5080 Review of Systems Constitutional: Reports: see HPI. Objective Last 24 Hrs of Vital Signs/I&O Vital Signs Date Time Temp Pulse Resp B/P B/P Pulse O2 O2 Flow FiO2 Mean Ox Delivery Rate 10/19 0902 60 118/60 10/19 0901 60 118/60 10/19 0703 98.1 60 18 118/60 96 Room Air 10/19 0314 69 97 10/19 0000 CPAP 10/18 2310 72 10/18 2232 97.8 58 18 132/60 98 CPAP 10/18 2144 63 132/60 10/18 2144 63 132/60 10/18 1520 97.9 63 18 132/60 96 Room Air Intake & Output 10/19 1600 10/19 0800 10/19 0000 Intake Total 258.4 400 Output Total 1000 Balance -741.6 400 Intake, IV 158.4 Intake, Oral 100 400 Number 1 Bowel Movements Output, Urine 1000 Patient 171 lb Weight Weight Bed scale Measurement Method Physical Exam General Appearance: Alert, Oriented X3, Cooperative, No Acute Distress HEENT: Atraumatic, PERRLA, EOMI, Mucous Membr. moist/pink Neck: Supple, No JVD Cardiovascular: Normal S1, Normal S2, No Murmurs Lungs: Clear to Auscultation Abdomen: Normal Bowel Sounds, Soft, drainiage is covering abd abcess Extremities: No Clubbing, No Cyanosis, No Edema Assessment/Plan Assessment: 81 year old man with PMHx of CLL, lung cancer, recent left abdominal hernia repair (04/2017), right lower extremity cellulitis, and mechanical aortic valve on Coumadin was sent in by his PCP for evalution of left lower abdominal swelling, redness, with occasional drainage without fever. Patient was prescribed Bactrim which he took for 4 days prior to admission admitted for management of left lower quadrant cellulitis and abscess concerning for MRSA. #Left lower quadrant purulent abdominal wall cellulitis/abscess: abd wounds draining sig amount of pus , surgical PA changed the dressing and aspirin will be restarted tomorrow History of MRSA cellulitis WBC trending down (on vancomycin and chronic steroids for CLL) Continue vancomycin 1g IV daily Follow-up of uncontrolled Outpatient antibiotic failure with bactrim 1.2cm abscess but was determined to be too small for IR drainage Plan for bedside I+D with general surgery and culture after INR <2.5 Blood cultures NGTD Follow-up on I&D culture Check UA and culture Follow up infectious disease and surgery recommendations His infection seems to be improving and is clinically doing well. His worsening leukocytosis is unlikely to be related to the infection, more likely related to CLL. He may require hematology evaluation. [facility] Mechanical valve with supratherapeutic INR: possibly related to recent course of bactrim Coumadin on hold, should be on aspirin also (not on med list) Given 10mg po vitamin K yesterday INR 1.19 this morning, will start IV heparin after 2 hours of 90 CLL: on prednisone 10mg daily History of lacunar infaract Continue statin, should be on aspirin NAEEM Nocturnal CPAP GERD PO PPI BPH Continue finasteride and flomax Heart Healthy diet DVT ppx-on coumadin, and intravenous heparin as INR subtherapeutic Full code Problem List: 1. Cellulitis and abscess of trunk Pain Ratin Pain Location: N/A Pain Goal: Remain pain free Pain Plan: Pathway Tomorrow's Labs & Rationales: CBC, BEP.INR
[2017-10-19 07:52] LABS: ABSOLUTE BASOPHIL COUNT 0.1 /CUMM (0.0-0.2); ABSOLUTE EOSINOPHIL COUNT 0.1 /CUMM (0.0-0.7); ABSOLUTE MONOCYTE COUNT 0.7 /CUMM (0.10-0.60); BASOPHIL % 0.2 % (0.0-2.0); EOSINOPHIL % 0.4 % (0-5); GRANULOCYTE % 28.2 % (42.2-75.2); HEMATOCRIT 27.8 % (42-52); MEAN CORPUSCULAR HGB 24.8 PG (27.0-31.0); MEAN CORPUSCULAR HGB CONC 31.3 G/DL (33.0-37.0); MEAN CORPUSCULAR VOLUME 79.4 FL (80.0-94.0); PLATELET COUNT 315 /CUMM (130-400); RBC DISTRIBUTION WIDTH 19.4 % (11.5-14.5)
[2017-10-19 08:17] LABS: PT 22.3 SEC (9.4-12.5)
--- NOTE | 2017-10-19 11:01 | PN- Infect Dx ---
Subjective Subjective: Afebrile without complaints Objective Last 24 Hrs of Vital Signs/I&O Vital Signs Date Time Temp Pulse Resp B/P B/P Pulse O2 O2 Flow FiO2 Mean Ox Delivery Rate 10/19 0902 60 118/60 10/19 0901 60 118/60 10/19 0703 98.1 60 18 118/60 96 Room Air 10/19 0314 69 97 10/19 0000 CPAP 10/18 2310 72 10/18 2232 97.8 58 18 132/60 98 CPAP 10/18 2144 63 132/60 10/18 2144 63 132/60 10/18 1520 97.9 63 18 132/60 96 Room Air Intake & Output 10/19 1600 10/19 0800 10/19 0000 Intake Total 258.4 400 Output Total 1000 Balance -741.6 400 Intake, IV 158.4 Intake, Oral 100 400 Number 1 Bowel Movements Output, Urine 1000 Patient 171 lb Weight Weight Bed scale Measurement Method Physical Exam Other Physical Findings: He appears comfortable in no acute distress Lungs are clear Heart regular rhythm with an audible click Abdomen mild induration over the left lower quadrant persists, with purulent drainage expressed from the 2 wounds, with one tammie drain left in place; mild tenderness on palpation Results Last 24 Hours of Lab Results: Laboratory Tests 10/19 10/19 10/18 0630 0100 1526 Chemistry Sodium (137 - 145 mmol/L) 141 Potassium (3.5 - 5.1 mmol/L) 3.8 Chloride (98 - 107 mmol/L) 105 Carbon Dioxide (22 - 30 mmol/L) 27 Anion Gap (5 - 16) 9 Coagulation PT (9.4 - 12.5 SEC) 22.3 H INR (0.90 - 1.17) 2.03 H APTT (25 - 37 SEC) 71 H > 120 *H Hematology CBC w Diff MAN DIFF ORDERED WBC (4.8 - 10.8 /CUMM) 31.8 *H RBC (4.70 - 6.10 /CUMM) 3.50 L Hgb (14.0 - 18.0 G/DL) 8.7 L Hct (42 - 52 %) 27.8 L MCV (80.0 - 94.0 FL) 79.4 L MCH (27.0 - 31.0 PG) 24.8 L MCHC (33.0 - 37.0 G/DL) 31.3 L RDW (11.5 - 14.5 %) 19.4 H Plt Count (130 - 400 /CUMM) 315 MPV (7.4 - 10.4 FL) 9.0 Gran % (42.2 - 75.2 %) 28.2 L Lymphocytes % (20.5 - 51.1 %) 69.0 H Monocytes % (1.7 - 9.3 %) 2.2 Eosinophils % (0 - 5 %) 0.4 Basophils % (0.0 - 2.0 %) 0.2 Absolute Granulocytes (1.4 - 6.5 /CUMM) 9.0 H Segmented Neutrophils (42.2 - 75.2 %) 40 L Band Neutrophils (0.0 - 5.0 %) 2 Absolute Lymphocytes (1.2 - 3.4 /CUMM) 22.0 H Lymphocytes (20.5 - 51.1 %) 55 H Monocytes (1.7 - 9.3 %) 3 Absolute Monocytes (0.10 - 0.60 /CUMM) 0.7 H Absolute Eosinophils (0.0 - 0.7 /CUMM) 0.1 Absolute Basophils (0.0 - 0.2 /CUMM) 0.1 Platelet Estimate (ADEQUATE) VERIFIED BY SMEAR Hypochromic-Microcytic 1+ Anisocytosis 1+ Microcytic Cells 1+ Toxicology Vancomycin Trough (10.0 - 20.0 ug/mL) 20.9 H Last 24 Hours of Pavel Results: Trunk culture October 15 positive for MRSA sensitive to Tetracycline, Bactrim, Clindamycin and Vancomycin Assessment/Plan ID Impression: Stable, with temperatures remaining normal (on steroids) and white blood cell count still elevated, presumably secondary to his CLL, on Vancomycin Day 7 of treatment for a left lower quadrant quadrant abdominal wall abscess secondary to MRSA, status post I&D at the bedside 4 days ago, with persistent, though decreased, induration and with purulent material still expressed. Have discussed with Surgery, who does not feel that further intervention is indicated at this point. His Vancomycin trough levels have been reviewed with dose adjustments noted. Suggestion: 1. Further management of his wounds per Surgery 2. Continue Vancomycin but, if plan to discharge, can change to Bactrim DS 1 p.o. every 12 hours for 1 week
--- NOTE | 2017-10-19 11:05 | PN- Att Addend ---
Attending Addendum Attending Brief Note Patient feeling better. Vital signs stable afebrile surgery checked wound and cleaned .WBC 31.800 INR therapeutic today. If Ok with consultants then start disposition plans. Intake & Output 10/19 1600 10/19 0400 10/18 1600 10/18 0400 10/17 1600 10/17 0400 Intake Total 258.4 400 1045.8 199.6 1360 400 Output Total 1000 350 400 725 450 Balance -741.6 400 695.8 -200.4 635 -50 Intake, IV 158.4 445.8 79.6 320 Intake, Oral 100 400 061 171 2686 400 Number 1 Bowel Movements Output, Urine 1000 350 400 725 450 Patient 171 lb 170 lb Weight Weight Bed scale Bed scale Measurement Method Current Medications Sig/Kobe Start time Last Medication Dose Route Stop Time Status Admin Acetaminophen 650 MG Q6P PRN 10/12 1545 AC 10/18 PO 1404 Aspirin 81 MG DAILY 10/16 09 AC 10/19 PO 0901 Diphenhydramine HCl 25 MG DAILY NEEDED PRN 10/12 1845 AC 10/15 PO 1719 Finasteride 5 MG DAILY 10/12 1646 AC 10/19 PO 0901 Folic Acid 1 MG DAILY 10/12 1646 AC 10/19 PO 0901 Heparin Sodium 25,000 UNIT .STK-MED ONE 10/19 0155 DC (Porcine) IV 10/19 0156 Heparin Sodium 25,000 UNIT Q24H 10/15 1600 AC 10/19 (Porcine) IV 0213 Sodium Chloride 500 ML Hydroxyzine HCl 25 MG BID PRN 10/12 1845 AC PO Metoprolol Tartrate 12.5 MG BID 10/14 2100 AC 10/19 PO 0901 Omeprazole 40 MG DAILY AC 10/13 0700 AC 10/19 PO 0633 Pravastatin Sodium 20 MG 1700 10/12 1700 AC 10/18 PO 1657 Prednisone 10 MG DAILY 10/12 1647 AC 10/19 PO 0901 Tamsulosin HCl 0.4 MG BID 10/12 2100 AC 10/19 PO 0902 Vancomycin HCl 1,000 MG DAILY 10/19 09 AC Sodium Chloride 250 ML IV Vancomycin HCl 1,000 MG 0400,1600 10/17 1600 DC 10/18 Sodium Chloride 250 ML IV 0323 Warfarin Sodium 7.5 MG COUMADIN 1700 ONE 10/19 1700 AC PO 10/19 1701 Warfarin Sodium 7.5 MG COUMADIN 1700 ONE 10/18 1700 DC 10/18 PO 10/18 1701 1658 Laboratory Tests 10/19/17 0630: Anion Gap 9, PT 22.3 H, INR 2.03 H, CBC w Diff MAN DIFF ORDERED, RBC 3.50 L, MCV 79.4 L, MCH 24.8 L, MCHC 31.3 L, RDW 19.4 H, MPV 9.0, Gran % 28.2 L, Lymphocytes % 69.0 H, Monocytes % 2.2, Eosinophils % 0.4, Basophils % 0.2, Absolute Granulocytes 9.0 H, Segmented Neutrophils 40 L, Band Neutrophils 2, Absolute Lymphocytes 22.0 H, Lymphocytes 55 H, Monocytes 3, Absolute Monocytes 0.7 H, Absolute Eosinophils 0.1, Absolute Basophils 0.1, Platelet Estimate VERIFIED BY SMEAR, Hypochromic-Microcytic 1+, Anisocytosis 1+, Microcytic Cells 1+ 10/19/17 0100: APTT 71 H 10/18/17 1526: APTT > 120 *H, Vancomycin Trough 20.9 H 10/18/17 0642: Anion Gap 8, Estimated GFR 53 L, BUN/Creatinine Ratio 14.6, PT 15.2 H, INR 1.39 H, APTT 42 H, CBC w Diff NO MAN DIFF REQ, RBC 3.84 L, MCV 77.9 L, MCH 25.3 L, MCHC 32.4 L, RDW 19.3 H, MPV 9.3, Gran % 26.2 L, Lymphocytes % 69.3 H, Monocytes % 4.1, Eosinophils % 0.3, Basophils % 0.1, Absolute Granulocytes 8.5 H, Absolute Lymphocytes 22.5 H, Absolute Monocytes 1.3 H, Absolute Eosinophils 0.1, Absolute Basophils 0 10/17/17 1805: APTT 62 H 10/17/17 0604: Anion Gap 8, Estimated GFR 58 L, BUN/Creatinine Ratio 17.5, PT 12.0, INR 1.10, APTT 63 H, CBC w Diff NO MAN DIFF REQ, RBC 3.64 L, MCV 78.5 L, MCH 25.3 L, MCHC 32.2 L, RDW 19.4 H, MPV 9.2, Gran % 28.0 L, Lymphocytes % 69.6 H, Monocytes % 1.7, Eosinophils % 0.5, Basophils % 0.2, Absolute Granulocytes 8.1 H, Absolute Lymphocytes 20.1 H, Absolute Monocytes 0.5, Absolute Eosinophils 0.1, Absolute Basophils 0.1 10/16/17 1840: APTT 71 H, Vancomycin Trough 10.0 10/16/17 1412: PT Cancelled, INR Cancelled Vital Signs Date Time Temp Pulse Resp B/P B/P Pulse O2 O2 Flow FiO2 Mean Ox Delivery Rate 10/19 0902 60 118/60 10/19 0901 60 118/60 10/19 0703 98.1 60 18 118/60 96 Room Air 10/19 0314 69 97 10/19 0000 CPAP 10/18 2310 72 10/18 2232 97.8 58 18 132/60 98 CPAP 10/18 2144 63 132/60 10/18 2144 63 132/60 10/18 1520 97.9 63 18 132/60 96 Room Air
--- NOTE | 2017-10-19 11:13 | PN- General Surgery ---
Surgical Brief Attending Note Brief Attending Note: MRSA infection s/p incision and drainage. progressing as expected. repacked. f/u next week after discharged.
--- NOTE | 2017-10-19 12:19 | PN- Cardiology ---
Subjective Subjective: Feeling well from a cardiac standpoint. No chest pain. No palpitations. No shortness of breath. No diaphoresis. No nausea or vomiting. Objective Vital Signs and I&Os Vital Signs Date Time Temp Pulse Resp B/P B/P Pulse O2 O2 Flow FiO2 Mean Ox Delivery Rate 10/19 1416 98.0 65 20 110/52 97 Room Air 10/19 0902 60 118/60 10/19 0901 60 118/60 10/19 0703 98.1 60 18 118/60 96 Room Air 10/19 0314 69 97 10/19 0000 CPAP 10/18 2310 72 10/18 2232 97.8 58 18 132/60 98 CPAP 10/18 2144 63 132/60 10/18 2144 63 132/60 Intake & Output 10/19 0800 10/19 0000 10/18 1600 10/18 0800 10/18 0000 Intake Total 258.4 400 695.8 350 199.6 Output Total 1000 350 400 Balance -741.6 400 345.8 350 -200.4 Intake, IV 158.4 195.8 250 79.6 Intake, Oral 100 400 500 100 120 Number 1 Bowel Movements Output, Urine 1000 350 400 Patient 171 lb 170 lb Weight Weight Bed scale Bed scale Measurement Method Physical Exam: Gen: NAD HEENT: normal Lungs: clear to auscultation, normal resp. effort Heart: S1, S2, mechanical valve sounds, 1/6 systolic murmuyr Abdomen: Soft, nontender, no masses Extremities: No clubbing, cyanosis, or edema. Neuro: Alert and oriented x 3, cranial nerves intact Current Medications: Current Medications Sig/Kobe Start time Last Medication Dose Route Stop Time Status Admin Acetaminophen 650 MG Q6P PRN 10/12 1545 AC 10/20 PO 0632 Aspirin 81 MG DAILY 10/16 0900 AC 10/20 PO 0838 Diphenhydramine HCl 25 MG .STK-MED ONE 10/19 1711 DC PO 10/19 1712 Diphenhydramine HCl 25 MG DAILY NEEDED PRN 10/12 1845 AC 10/19 PO 1712 Finasteride 5 MG DAILY 10/12 1646 AC 10/20 PO 0838 Folic Acid 1 MG DAILY 10/12 1646 AC 10/20 PO 0838 Heparin Sodium 25,000 UNIT Q24H 10/15 1600 AC 06/11 (Porcine) IV 1832 Sodium Chloride 500 ML Hydroxyzine HCl 25 MG BID PRN 10/12 1845 AC PO Metoprolol Tartrate 12.5 MG BID 10/14 2100 AC 10/20 PO 0838 Omeprazole 40 MG DAILY AC 10/13 0700 AC 10/20 PO 0632 Patient Medication 1 ED ONE ONE 10/19 1300 DC Teaching ED 10/19 1301 Pravastatin Sodium 20 MG 1700 10/12 1700 AC 10/19 PO 1810 Prednisone 10 MG DAILY 10/12 1647 AC 10/20 PO 0838 Tamsulosin HCl 0.4 MG BID 10/12 2100 AC 10/20 PO 0838 Vancomycin HCl 1,000 MG 1600 10/19 1600 AC 10/19 Sodium Chloride 250 ML IV 1814 Vancomycin HCl 1,000 MG DAILY 10/19 0900 DC Sodium Chloride 250 ML IV Warfarin Sodium 7.5 MG COUMADIN 1700 ONE 10/19 1700 DC 10/19 PO 10/19 1701 1810 Results Last 48 Hrs of Labs/Mics: Laboratory Tests 10/20/17 0606: Anion Gap 6, Estimated GFR 58 L, BUN/Creatinine Ratio 18.3, PT 29.5 H, INR 2.68 H, CBC w Diff MAN DIFF ORDERED, RBC 3.58 L, MCV 79.2 L, MCH 25.1 L, MCHC 31.8 L, RDW 19.9 H, MPV 9.1, Gran % 28.7 L, Lymphocytes % 67.1 H, Monocytes % 3.7, Eosinophils % 0.3, Basophils % 0.2, Absolute Granulocytes 8.7 H, Segmented Neutrophils 30 L, Absolute Lymphocytes 20.5 H, Lymphocytes 66 H, Monocytes 4, Absolute Monocytes 1.1 H, Absolute Eosinophils 0.1, Absolute Basophils 0, Platelet Estimate VERIFIED BY SMEAR, Hypochromic-Microcytic 1+, Poikilocytosis 1+, Anisocytosis 1+, Microcytic Cells 1+, Ovalocytes FEW 10/20/17 0210: APTT > 120 *H 10/19/17 1325: APTT 88 H 10/19/17 1159: Vancomycin Trough 11.5 10/19/17 0630: Anion Gap 9, PT 22.3 H, INR 2.03 H, CBC w Diff MAN DIFF ORDERED, RBC 3.50 L, MCV 79.4 L, MCH 24.8 L, MCHC 31.3 L, RDW 19.4 H, MPV 9.0, Gran % 28.2 L, Lymphocytes % 69.0 H, Monocytes % 2.2, Eosinophils % 0.4, Basophils % 0.2, Absolute Granulocytes 9.0 H, Segmented Neutrophils 40 L, Band Neutrophils 2, Absolute Lymphocytes 22.0 H, Lymphocytes 55 H, Monocytes 3, Absolute Monocytes 0.7 H, Absolute Eosinophils 0.1, Absolute Basophils 0.1, Platelet Estimate VERIFIED BY SMEAR, Hypochromic-Microcytic 1+, Anisocytosis 1+, Microcytic Cells 1+ 10/19/17 0100: APTT 71 H 10/18/17 1526: APTT > 120 *H, Vancomycin Trough 20.9 H Assessment/Plan Assessment/Plan Assessment: 1. [facility] mechanical aortic valve on warfarin therapy 2. Left lower quadrant abdominal wall purulent cellulitis with abscess 3. CLL on prednisone 4. History of lung cancer status post right lower lobectomy 5. History of MRSA cellulitis 6. History of endocarditis 7. GERD 8. hyperlipidemia 9. Paroxysmal SVT, currently in sinus rhythm 10. Positive troponin, likely type II [place] Plan: * Warfarin has been restarted. Dose warfarin for therapeutic INR * Continue heparin bridging * Will need close monitoring of INR after discharge. * Follow with his usual professor of communication after discharge for possible nuclear stress test Continue telemetry? Yes
[2017-10-19 14:16] VITALS: BP 110/52
[2017-10-19 14:52] LABS: PTT 88 SEC (25-37)
[2017-10-19 22:18] VITALS: BP 122/80
[2017-10-20 02:55] LABS: PTT > 120 SEC (25-37)
--- NOTE | 2017-10-20 07:13 | PN- Housestaff ---
Subjective Follow-up For: MRSA abscess Tele-Events Since Last Visit: Sinus bradycardia, first-degree heart block, 43, 0.08, 0.22 Subjective: Patient was seen and examined at bedside, he denies any complaints, reports improvement of the pain in his left lower quadrant, surgical dressing intact, it is changed daily by the surgical team. Bridging from IV heparin drip to p.o. warfarin. Most likely the patient will be discharged home today Review of Systems Constitutional: Reports: see HPI. Objective Last 24 Hrs of Vital Signs/I&O Vital Signs Date Time Temp Pulse Resp B/P B/P Pulse O2 O2 Flow FiO2 Mean Ox Delivery Rate 10/20 0714 97.9 49 18 139/65 98 Room Air 10/20 0028 43 96 10/19 2256 57 97 10/19 2218 97.6 67 18 122/80 98 Room Air 10/19 2117 67 122/80 10/19 2114 67 122/80 10/19 1416 98.0 65 20 110/52 97 Room Air 10/19 0902 60 118/60 10/19 0901 60 118/60 Intake & Output 10/20 1600 10/20 0800 10/20 0000 Intake Total 120 741.9 Output Total 50 200 Balance 70 541.9 Intake, IV 621.9 Intake, Oral 120 120 Number 1 Bowel Movements Output, Urine 50 200 Patient 173 lb Weight Weight Bed scale Measurement Method Physical Exam General Appearance: Alert, Oriented X3, Cooperative, No Acute Distress Neck: Supple, No JVD Cardiovascular: Normal S1, Normal S2, No Murmurs Lungs: Clear to Auscultation Abdomen: Normal Bowel Sounds, Soft, No Tenderness Neurological: Normal Speech, Strength at 5/5 X4 Ext, Normal Tone, Sensation Intact, Cranial Nerves 3-12 NL Extremities: No Clubbing, No Cyanosis, No Edema Vascular: Normal Pulses Assessment/Plan Assessment: 81 year old man with PMHx of CLL, lung cancer, recent left abdominal hernia repair (04/2017), right lower extremity cellulitis, and mechanical aortic valve on Coumadin was sent in by his PCP for evalution of left lower abdominal swelling, redness, with occasional drainage without fever. Patient was prescribed Bactrim which he took for 4 days prior to admission admitted for management of left lower quadrant cellulitis and abscess concerning for MRSA. #Left lower quadrant purulent abdominal wall cellulitis/abscess: abd wounds draining small amount of pus , Dressing changes by surgical team Continue baby aspirin History of MRSA cellulitis WBC trending down (on vancomycin and chronic steroids for CLL) Continue vancomycin 1g IV daily Check UA and culture Follow up infectious disease and surgery recommendations His infection seems to be improving and is clinically doing well. His worsening leukocytosis is unlikely to be related to the infection, more likely related to CLL. He may require hematology evaluation. [facility] Mechanical valve with supratherapeutic INR: possibly related to recent course of bactrim Coumadin on hold, should be on aspirin also (not on med list) Given 10mg po vitamin K yesterday INR 1.19 this morning, will start IV heparin after 2 hours of 90 CLL: on prednisone 10mg daily History of lacunar infaract Continue statin, should be on aspirin NAEEM Nocturnal CPAP GERD PO PPI BPH Continue finasteride and flomax Heart Healthy diet DVT ppx-on coumadin, and intravenous heparin as INR subtherapeutic Full code Problem List: 1. Cellulitis and abscess of trunk Pain Ratin Pain Location: LLQ Pain Goal: Remain pain free Pain Plan: Pathway Tomorrow's Labs & Rationales: N/A
[2017-10-20 07:14] VITALS: BP 139/65
[2017-10-20 07:38] LABS: ABSOLUTE BASOPHIL COUNT 0 /CUMM (0.0-0.2); ABSOLUTE EOSINOPHIL COUNT 0.1 /CUMM (0.0-0.7); ABSOLUTE GRANULOCYTE CT 8.7 /CUMM (1.4-6.5); ABSOLUTE LYMPH COUNT 20.5 /CUMM (1.2-3.4); ABSOLUTE MONOCYTE COUNT 1.1 /CUMM (0.10-0.60); BASOPHIL % 0.2 % (0.0-2.0); EOSINOPHIL % 0.3 % (0-5); GRANULOCYTE % 28.7 % (42.2-75.2); HEMATOCRIT 28.3 % (42-52); MEAN CORPUSCULAR HGB 25.1 PG (27.0-31.0); MEAN CORPUSCULAR HGB CONC 31.8 G/DL (33.0-37.0); MEAN CORPUSCULAR VOLUME 79.2 FL (80.0-94.0); MEAN PLATELET VOLUME 9.1 FL (7.4-10.4); PLATELET COUNT 320 /CUMM (130-400); RBC DISTRIBUTION WIDTH 19.9 % (11.5-14.5); RED BLOOD CELL CT 3.58 /CUMM (4.70-6.10)
[2017-10-20 07:55] LABS: WHITE BLOOD CELL COUNT 30.5 /CUMM (4.8-10.8)
[2017-10-20 07:58] LABS: WHITE BLOOD CELL COUNT 31.8 /CUMM (4.8-10.8)
[2017-10-20 08:19] LABS: PT 29.5 SEC (9.4-12.5)
[2017-10-20] MEDS ORDERED: BACTRIM DS TAB1 EACH PO (09:39)
[2017-10-20] MEDS ORDERED: TOPROL XL25 M2 PO (09:47)
--- NOTE | 2017-10-20 10:13 | PN- Att Addend ---
Attending Addendum Attending Brief Note No new complaints. Following anticoagulation protocol. Yesterday's INR was therapeutic but was kept another 24 hours INR today 2.68. Patient was switched to by mouth Bactrim. 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 See C MR. Intake & Output 10/20 1600 10/20 0400 10/19 1600 10/19 0400 10/18 1600 10/18 0400 Intake Total 120 741.9 1046.8 400 1045.8 199.6 Output Total 50 200 1300 350 400 Balance 70 541.9 -253.2 400 695.8 -200.4 Intake, IV 621.9 346.8 445.8 79.6 Intake, Oral 120 120 700 400 600 120 Number 1 1 Bowel Movements Output, Urine 50 200 1300 350 400 Patient 173 lb 171 lb 170 lb Weight Weight Bed scale Bed scale Bed scale Measurement Method Current Medications Sig/Kobe Start time Last Medication Dose Route Stop Time Status Admin Acetaminophen 650 MG Q6P PRN 10/12 1545 AC 10/20 PO 0632 Aspirin 81 MG DAILY 10/16 0900 AC 10/20 PO 0838 Diphenhydramine HCl 25 MG .STK-MED ONE 10/19 1711 DC PO 10/19 1712 Diphenhydramine HCl 25 MG DAILY NEEDED PRN 10/12 1845 AC 10/19 PO 1712 Finasteride 5 MG DAILY 10/12 1646 AC 10/20 PO 0838 Folic Acid 1 MG DAILY 10/12 1646 AC 10/20 PO 0838 Heparin Sodium 25,000 UNIT Q24H 10/15 1600 AC 10/19 (Porcine) IV 1832 Sodium Chloride 500 ML Hydroxyzine HCl 25 MG BID PRN / 1845 AC PO Metoprolol Tartrate 12.5 MG BID 10/14 2100 AC 10/20 PO 0838 Omeprazole 40 MG DAILY AC 10/13 0700 AC 10/20 PO 0632 Patient Medication 1 ED ONE ONE 10/19 1300 DC Teaching ED 10/19 1301 Pravastatin Sodium 20 MG 1700 06/04 1700 AC 10/19 PO 1810 Prednisone 10 MG DAILY 10/12 1647 AC 10/20 PO 0838 Tamsulosin HCl 0.4 MG BID 10/12 2100 AC 10/20 PO 0838 Vancomycin HCl 1,000 MG 1600 10/19 1600 AC 10/19 Sodium Chloride 250 ML IV 1814 Vancomycin HCl 1,000 MG DAILY 10/19 0900 DC Sodium Chloride 250 ML IV Warfarin Sodium 7.5 MG COUMADIN 1700 ONE 10/19 1700 DC 10/19 PO 10/19 1701 1810 Laboratory Tests 10/20/17 0606: Anion Gap 6, Estimated GFR 58 L, BUN/Creatinine Ratio 18.3, PT 29.5 H, INR 2.68 H, CBC w Diff MAN DIFF ORDERED, RBC 3.58 L, MCV 79.2 L, MCH 25.1 L, MCHC 31.8 L, RDW 19.9 H, MPV 9.1, Gran % 28.7 L, Lymphocytes % 67.1 H, Monocytes % 3.7, Eosinophils % 0.3, Basophils % 0.2, Absolute Granulocytes 8.7 H, Segmented Neutrophils 30 L, Absolute Lymphocytes 20.5 H, Lymphocytes 66 H, Monocytes 4, Absolute Monocytes 1.1 H, Absolute Eosinophils 0.1, Absolute Basophils 0, Platelet Estimate VERIFIED BY SMEAR, Hypochromic-Microcytic 1+, Poikilocytosis 1+, Anisocytosis 1+, Microcytic Cells 1+, Ovalocytes FEW 10/20/17 0210: APTT > 120 *H 10/19/17 1325: APTT 88 H 10/19/17 1159: Vancomycin Trough 11.5 10/19/17 0630: Anion Gap 9, PT 22.3 H, INR 2.03 H, CBC w Diff MAN DIFF ORDERED, RBC 3.50 L, MCV 79.4 L, MCH 24.8 L, MCHC 31.3 L, RDW 19.4 H, MPV 9.0, Gran % 28.2 L, Lymphocytes % 69.0 H, Monocytes % 2.2, Eosinophils % 0.4, Basophils % 0.2, Absolute Granulocytes 9.0 H, Segmented Neutrophils 40 L, Band Neutrophils 2, Absolute Lymphocytes 22.0 H, Lymphocytes 55 H, Monocytes 3, Absolute Monocytes 0.7 H, Absolute Eosinophils 0.1, Absolute Basophils 0.1, Platelet Estimate VERIFIED BY SMEAR, Hypochromic-Microcytic 1+, Anisocytosis 1+, Microcytic Cells 1+ 10/19/17 0100: APTT 71 H 10/18/17 1526: APTT > 120 *H, Vancomycin Trough 20.9 H 10/18/17 0642: Anion Gap 8, Estimated GFR 53 L, BUN/Creatinine Ratio 14.6, PT 15.2 H, INR 1.39 H, APTT 42 H, CBC w Diff NO MAN DIFF REQ, RBC 3.84 L, MCV 77.9 L, MCH 25.3 L, MCHC 32.4 L, RDW 19.3 H, MPV 9.3, Gran % 26.2 L, Lymphocytes % 69.3 H, Monocytes % 4.1, Eosinophils % 0.3, Basophils % 0.1, Absolute Granulocytes 8.5 H, Absolute Lymphocytes 22.5 H, Absolute Monocytes 1.3 H, Absolute Eosinophils 0.1, Absolute Basophils 0 10/17/17 1805: APTT 62 H Vital Signs Date Time Temp Pulse Resp B/P B/P Pulse O2 O2 Flow FiO2 Mean Ox Delivery Rate 10/20 0714 97.9 49 18 139/65 98 Room Air 10/20 0028 43 96 10/19 2256 57 97 10/198 97.6 67 18 122/80 98 Room Air 10/19 2116 67 122/80 10/19 2113 67 122/80 10/19 1416 98.0 65 20 110/52 97 Room Air
--- NOTE | 2017-10-20 12:04 | PN- Cardiology ---
Subjective Subjective: The patient reports that he is feeling well. No chest pain. No palpitations. No diaphoresis. No nausea or vomiting. No lightheadedness or dizziness. Objective Vital Signs and I&Os Vital Signs Date Time Temp Pulse Resp B/P B/P Pulse O2 O2 Flow FiO2 Mean Ox Delivery Rate 10/20 0714 97.9 49 18 139/65 98 Room Air 10/20 0028 43 96 10/19 2256 57 97 10/19 2218 97.6 67 18 122/80 98 Room Air 10/197 67 122/80 10/19 2114 67 122/80 10/19 1416 98.0 65 20 110/52 97 Room Air Intake & Output 10/20 1600 10/20 0800 10/20 0000 10/19 1600 10/20 0700 10/19 0000 Intake Total 120 741.9 788.4 258.4 400 Output Total 50 265 615 8485 Balance 70 541.9 488.4 -741.6 400 Intake, IV 621.9 188.4 158.4 Intake, Oral 120 120 600 100 400 Number 1 0 1 Bowel Movements Output, Urine 50 021 894 7297 Patient 173 lb 171 lb Weight Weight Bed scale Bed scale Measurement Method Physical Exam: Gen: NAD HEENT: normal Lungs: clear to auscultation, normal resp. effort Heart: S1, S2, mechanical valve sounds, 1/6 systolic murmuyr Abdomen: Soft, nontender, no masses Extremities: No clubbing, cyanosis, or edema. Neuro: Alert and oriented x 3, cranial nerves intact Current Medications: Current Medications Sig/Kobe Start time Last Medication Dose Route Stop Time Status Admin Acetaminophen 650 MG Q6P PRN 10/12 1545 AC 10/20 PO 0632 Aspirin 81 MG DAILY 10/16 0900 AC 10/20 PO 0838 Diphenhydramine HCl 25 MG .STK-MED ONE 10/19 1711 DC PO 10/19 1712 Diphenhydramine HCl 25 MG DAILY NEEDED PRN 10/12 1845 AC 10/19 PO 1712 Finasteride 5 MG DAILY 10/12 1646 AC 10/20 PO 0838 Folic Acid 1 MG DAILY 10/12 1646 AC 10/20 PO 0838 Heparin Sodium 25,000 UNIT Q24H 10/15 1600 AC 10/19 (Porcine) IV 1832 Sodium Chloride 500 ML Hydroxyzine HCl 25 MG BID PRN 10/12 1845 AC PO Metoprolol Tartrate 12.5 MG BID 10/14 2100 AC 10/20 PO 0838 Omeprazole 40 MG DAILY AC 10/13 0700 AC 10/20 PO 0632 Patient Medication 1 ED ONE ONE 10/19 1300 DC Teaching ED 10/19 1301 Pravastatin Sodium 20 MG 1700 10/12 1700 AC 10/19 PO 1810 Prednisone 10 MG DAILY 10/12 1647 AC 10/20 PO 0838 Tamsulosin HCl 0.4 MG BID 10/12 2100 AC 10/20 PO 0838 Vancomycin HCl 1,000 MG 1600 10/19 1600 AC 10/19 Sodium Chloride 250 ML IV 1814 Vancomycin HCl 1,000 MG DAILY 10/19 0900 DC Sodium Chloride 250 ML IV Warfarin Sodium 7.5 MG COUMADIN 1700 ONE 10/19 1700 DC 10/19 PO 10/19 1701 1810 Results Last 48 Hrs of Labs/Mics: Laboratory Tests 10/20/17 0606: Anion Gap 6, Estimated GFR 58 L, BUN/Creatinine Ratio 18.3, PT 29.5 H, INR 2.68 H, CBC w Diff MAN DIFF ORDERED, RBC 3.58 L, MCV 79.2 L, MCH 25.1 L, MCHC 31.8 L, RDW 19.9 H, MPV 9.1, Gran % 28.7 L, Lymphocytes % 67.1 H, Monocytes % 3.7, Eosinophils % 0.3, Basophils % 0.2, Absolute Granulocytes 8.7 H, Segmented Neutrophils 30 L, Absolute Lymphocytes 20.5 H, Lymphocytes 66 H, Monocytes 4, Absolute Monocytes 1.1 H, Absolute Eosinophils 0.1, Absolute Basophils 0, Platelet Estimate VERIFIED BY SMEAR, Hypochromic-Microcytic 1+, Poikilocytosis 1+, Anisocytosis 1+, Microcytic Cells 1+, Ovalocytes FEW 10/20/17 0210: APTT > 120 *H 10/19/17 1325: APTT 88 H 10/19/17 1159: Vancomycin Trough 11.5 10/19/17 0630: Anion Gap 9, PT 22.3 H, INR 2.03 H, CBC w Diff MAN DIFF ORDERED, RBC 3.50 L, MCV 79.4 L, MCH 24.8 L, MCHC 31.3 L, RDW 19.4 H, MPV 9.0, Gran % 28.2 L, Lymphocytes % 69.0 H, Monocytes % 2.2, Eosinophils % 0.4, Basophils % 0.2, Absolute Granulocytes 9.0 H, Segmented Neutrophils 40 L, Band Neutrophils 2, Absolute Lymphocytes 22.0 H, Lymphocytes 55 H, Monocytes 3, Absolute Monocytes 0.7 H, Absolute Eosinophils 0.1, Absolute Basophils 0.1, Platelet Estimate VERIFIED BY SMEAR, Hypochromic-Microcytic 1+, Anisocytosis 1+, Microcytic Cells 1+ 10/19/17 0100: APTT 71 H 10/18/17 1526: APTT > 120 *H, Vancomycin Trough 20.9 H Assessment/Plan Assessment/Plan Assessment: 1. [facility] mechanical aortic valve on warfarin therapy 2. Left lower quadrant abdominal wall purulent cellulitis with abscess 3. CLL on prednisone 4. History of lung cancer status post right lower lobectomy 5. History of MRSA cellulitis 6. History of endocarditis 7. GERD 8. hyperlipidemia 9. Paroxysmal SVT, currently in sinus rhythm 10. Positive troponin, likely type II [place] Plan: * Warfarin has been restarted. Dose warfarin for therapeutic INR * The patient is planned for discharge to home today. 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 No
== END 2017-10-20 13:00 | disposition home health service (06) | DRG 602 ==
LOC: ERH 09:59 → 1NO 13:34 → ERHI 13:34 → 2NA 13:34 → ENRESERV 20:04 → 2NA 20:39 → ENTRNSPT 20:39 → EDTRNSPTSTS 20:50 → EDTRNSPT 20:50 → 2NA 20:55 → CMPTRNSPT 21:01 → ENTRNSPT 10-14 18:05 → EDTRNSPTSTS 10-14 18:16 → EDTRNSPT 10-14 18:16 → 1NO 10-14 18:39 → CMPTRNSPT 10-14 18:53 → ENPENDDIS 10-20 09:45 → ENTRNSPT 10-20 12:48 → EDTRNSPTSTS 10-20 12:57 → EDTRNSPT 10-20 12:57 → 1NO 10-20 13:00 → CMPTRNSPT 10-20 13:08
PROVIDERS: Internal Medicine; Internal Medicine Interventional Cardiology; Preventive Medicine Public Health & General Preventive Medicine; Radiology Vascular & Interventional Radiology; Student in an Organized Health Care Education/Training Program
PROC: 0H97XZX Drainage of Abdomen Skin, External Approach, Diagnostic (ICD-10-PCS; principal; 2017-10-15)
DX: L03.311 Cellulitis of abdominal wall (principal); I21.A1 Myocardial infarction type 2; C91.10 Chronic lymphocytic leukemia of B-cell type not having achieved remission; I47.1 Supraventricular tachycardia; B96.89 Other specified bacterial agents as the cause of diseases classified elsewhere; B95.62 Methicillin resistant Staphylococcus aureus infection as the cause of diseases classified elsewhere; R89.2 Abnormal level of other drugs, medicaments and biological substances in specimens from other organs, systems and tissues; T37.0X5A Adverse effect of sulfonamides, initial encounter; K52.9 Noninfective gastroenteritis and colitis, unspecified; Z79.01 Long term (current) use of anticoagulants; Z95.2 Presence of prosthetic heart valve; Z86.73 Personal history of transient ischemic attack (TIA), and cerebral infarction without residual deficits; N40.0 Benign prostatic hyperplasia without lower urinary tract symptoms; G47.33 Obstructive sleep apnea (adult) (pediatric); Z85.118 Personal history of other malignant neoplasm of bronchus and lung; Z90.2 Acquired absence of lung [part of]; I44.0 Atrioventricular block, first degree; E78.5 Hyperlipidemia, unspecified
CPT/HCPCS: 1NP; 2NAP; 87184; 36415; 36592; 81001; 82436; 87040; 87070; 87086; 87147; 93005; 93010; 93306; 96374; J0131; J1644; J3370; J3490; J7040; J7060; J7512